=== PATIENT | female | born 1980 | race Caucasian/White ===

== ENCOUNTER 2024-09-20 16:58 | Emergency (ER) | payer OTHER ==
[2024-09-20] MEDS ORDERED: ALBUTEROL 2.5 MG/3 ML NEB SOL ONE ×2 (17:45→18:38)
[2024-09-20] MEDS ORDERED: IPRATROPIUM BROM 0.5MG/2.5ML ONE ×2 (17:46→18:39)
[2024-09-20] MEDS ORDERED: ONDANSETRON 4 MG/2 ML VIAL ONE (17:46)
[2024-09-20] MEDS ORDERED: dexAMETHasone 10 MG/ML VIAL ONE (17:46)
[2024-09-20] MEDS ORDERED: MORPHINE 2 MG/ML SYR ONE (17:46)
[2024-09-20 18:02] LABS: SARS-CoV-2 Antigen CONTROL BLUE LINE VIS/BG OK; SARS-CoV-2 Antigen Rapid Res Negative (Negative)
[2024-09-20 18:24] LABS: Absolute Basophils 0.1 K/uL (0-0.5); Absolute Eosinophils 0.2 K/uL (0-0.5); Absolute Lymphocytes (CBC) 2.4 K/uL (0.7-4.9); Absolute Monocytes 0.5 K/uL (0.1-1.3); Absolute Neutrophil 4.8 K/uL (1.8-8.0); Basophils % 1.8 % (0-1.3); Eosinophils % 1.9 % (0-4.4); Hematocrit 31.4 % (36.0-45.0); Hemoglobin 10.5 g/dL (12.0-15.0); Lymphocytes % 30.1 % (15.3-44.8); MCH 23.6 pg (27.0-35.0); MCHC 33.3 g/dL (32.0-36.0); MCV 70.8 fL (80-100); MPV 8.6 fL (7.6-11.3); Monocytes % 6.2 % (3.3-12.3); Nucleated Red Blood Cells % 0.3 % (0-0); Platelets 303 thou/uL (152-406); RBC Red Blood Cell Count 4.44 M/uL (3.86-4.86); Red Cell Distribution Width 19.8 % (12.1-15.2)
--- NOTE | 2024-09-20 18:29 | RAD REPORT ---
EXAMINATION: ONE VIEW CHEST XR CLINICAL INDICATION: Female, 44 years old.,COPD;Cough TECHNIQUE: Frontal chest projection is submitted. Examination is limited by patient positioning and t echnique. COMPARISON: 07/07/2024 FINDINGS: The lungs are grossly clear although suboptimal inspiratory effort somewhat limits evaluation. No pn eumothorax or sizable effusion. The heart is normal in size. Mediastinal contours are unremarkable. IMPRESSION: No acute intrathoracic abnormalities.
[2024-09-20 18:39] LABS: Anion Gap 10.5 mEq/L (5.0-15.0); Magnesium 2.1 mg/dL (1.6-2.4); Potassium 4.5 mEq/L (3.5-5.1); Troponin High Sensitivity 7.6 pg/mL (<58.9)
[2024-09-20] MEDS ORDERED: MORPHINE 4 MG/ML SYR ONE (18:49)
--- NOTE | 2024-09-20 18:50 | EDPHYS ---
Physician Documentation [facility] Name: F[facility] Leon Age: 44 yrs Sex: Female : 1980 Arrival Date: 09/20/2024 Time: 16:58 Bed 15 Private MD: ED Physician Keith Hernández HPI: 09/20 18:12 This 44 yrs old Female presents to ER via EMS with complaints of Fever, dr5 Breathing Difficulty. 18:12 Patient is a 44-year-old male female with history of asthma, COPD, CHF, seizures, PTSD, dr5 anxiety with multiple allergies coming in with shortness of breath that started last night. Patient went to her doctor today and was given breathing treatments with moderate improvement. Patient states that she has just recently been taken off of steroids.. 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 - Infectious Disease History:: Denies. - Social history:: Smoking status: Patient reports the use of cigarette tobacco products, smokes one-half pack cigarettes per day. ROS: 18:12 Constitutional: as per hpi dr5 Exam: 18:12 Constitutional: This is a well developed, grossly obese, unkempt patient who is awake, dr5 alert, and in no acute distress. Walking into the room smells of cigarettes. Head/Face: Normocephalic, atraumatic. Eyes: Pupils equal round and reactive to light, extra-ocular motions intact. Lids and lashes normal. Conjunctiva and sclera are non-icteric and not injected. Cornea within normal limits. Periorbital areas with no swelling, redness, or edema. ENT: Nares patent. No nasal discharge, no septal abnormalities noted. Tympanic membranes are normal and external auditory canals are clear. Oropharynx with no redness, swelling, or masses, exudates, or evidence of obstruction, uvula midline. Mucous membranes moist. Neck: Trachea midline, no thyromegaly or masses palpated, and no cervical lymphadenopathy. Supple, full range of motion without nuchal rigidity, or vertebral point tenderness. No Meningismus. Chest/axilla: Normal chest wall appearance and motion. Nontender with no deformity. No lesions are appreciated. Cardiovascular: Regular rate and rhythm with a normal S1 and S2. Normal PMI, no JVD. No pulse deficits. 18:12 Back: No spinal tenderness. No costovertebral tenderness. Full range of motion. Skin: Warm, dry with normal turgor. Normal color with no rashes, no lesions, and no evidence of cellulitis. MS/ Extremity: Pulses equal, no cyanosis. Neurovascular intact. Full, normal range of motion. Neuro: Awake and alert, GCS 15, oriented to person, place, time, and situation. Cranial nerves II-XII grossly intact. Motor strength 5/5 in all extremities. Sensory grossly intact. Cerebellar exam normal. Normal gait. 18:12 Respiratory: mild respiratory distress is noted, Respirations: normal, symetrical, no use of accessory muscles, no grunting, no evidence of nasal flaring, no appreciated paradoxical movements, Breath sounds: wheezing: expiratory that is mild, Respiratory rate: 20 100% RA, Vital Signs: 17:04 BP 116 / 59; Pulse 99; Resp 20; Temp 98.3; Pulse Ox 99% ; Weight 117.48 kg; Height 5 db ft. 4 in. ; 18:00 BP 118 / 63; Pulse 89; Resp 16; Pulse Ox 100% ; me1 18:55 BP 118 / 60; Pulse 92; Resp 16; Temp 98.2; Pulse Ox 98% ; me1 17:04 Body Mass Index 44.46 (117.48 kg, 162.56 cm) db MDM: 17:11 Medical Screening Exam initiated dr5 09/21 01:04 Differential diagnosis: viral Infection, bacterial infection, URI. Data reviewed: vital dr5 signs, nurses notes. I considered the following discharge prescriptions or medication management in the emergency department Medications were administered in the Emergency Department. See MAR. Care significantly affected by the following Social Determinants of Health: Poor access to healthcare and/or lack of insurance, Poor access to transportation, Problems related to employment. Counseling: I had a detailed discussion with the patient and/or guardian regarding the historical points, exam findings, and any diagnostic results supporting the discharge/admit diagnosis, the presence of at least one elevated blood pressure reading (>120/80) during this emergency department visit, the need for outpatient follow up, for definitive care, a family practitioner, a food critic, to return to the emergency department if symptoms worsen or persist or if there are any questions or concerns that arise at home. Medication response: albuterol nebulizer treatment(s) relieved the patient's symptoms. The patient is no longer wheezing. ED course: Patient is feeling much better after DuoNeb and steroids. Recommended patient follow-up with primary care doctor this week. Will give patient long-acting inhaled steroid. All questions answered. Patient reports she is feeling much better on discharge.. 09/20 17:16 Order name: Basic Metabolic Panel; Complete Time: 18:41 [facility] 09/20 17:16 Order name: CBC with Diff; Complete Time: 18:27 [facility] 09/20 17:16 Order name: Magnesium; Complete Time: 18:41 [facility] 09/20 17:16 Order name: NT PRO-BNP; Complete Time: 18:41 [facility] 09/20 17:16 Order name: Troponin HS; Complete Time: 18:41 [facility] 09/20 17:24 Order name: SARS RAPID; Complete Time: 18:04 [facility] 09/20 17:24 Order name: Influenza Screen (a \T\ B); Complete Time: 18:17 [facility] 09/20 17:16 Order name: XRAY Chest (1 view); Complete Time: 18:32 [facility] 09/20 17:16 Order name: Cardiac monitoring; Complete Time: 19:00 [facility] 09/20 17:16 Order name: IV Saline Lock; Complete Time: 18:17 [facility] 09/20 17:16 Order name: Labs collected and sent; Complete Time: 18:17 [facility] 09/20 17:16 Order name: O2 Per Protocol; Complete Time: 18:17 [facility] 09/20 17:16 Order name: O2 Sat Monitoring; Complete Time: 18:17 [facility] Administered Medications: 09/20 18:15 Drug: DuoNeb Nebulize (3:1) (2.5 mg - 0.5 mg) 6 ml Nebulizer once Route: Nebulizer; me1 18:32 Follow up: Response: No adverse reaction; Vomiting decreased me1 18:15 Drug: Dexamethasone IM 10 mg IM once Route: IM; Site: right deltoid; me1 18:32 Follow up: Response: No adverse reaction me1 18:15 Drug: Ondansetron IVP 4 mg IVP once; over 2 minutes Route: IVP; Site: right wrist; me1 18:32 Follow up: Response: No adverse reaction; Nausea is decreased me1 18:16 Drug: morphine IVP or IV 2 mg IVP once over 4 mins Route: IVP; Infused Over: 4 mins; me1 Site: right wrist; 18:32 Follow up: Response: No adverse reaction; Pain is decreased me1 18:48 Not Given (Patient Refused): DuoNeb Nebulize (3:1) (2.5 mg - 0.5 mg) 3 ml Nebulizer oncedr5 18:50 Drug: morphine IVP or IV 2 mg IVP once over 4 mins Route: IVP; Infused Over: 4 mins; me1 Site: right wrist; 18:54 Follow up: Response: No adverse reaction; Pain is decreased me1 Disposition: 09/21 07:04 Co-signature as Attending Physician, Keith Hernández MD I reviewed the patient's care rn provided by the Advanced Practice Provider and agree with the diagnosis and treatment plan. Disposition Summary: 09/20/24 18:50 Discharge Ordered Notes: Location: Home dr5 Condition: Stable dr5 Diagnosis - COPD/ Chronic obstructive pulmonary disease, unspecified dr5 Followup: dr5 - With: Emergency Department - When: As needed - Reason: Worsening of condition Followup: dr5 - With: Private Physician - When: 1 - 2 days - Reason: Recheck today's complaints, Continuance of care, Re-evaluation by your physician Discharge Instructions: - Discharge Summary Sheet dr5 - Chronic Obstructive Pulmonary Disease dr5 Forms: - Medication Reconciliation Form dr5 - Patient Portal Instructions dr5 - Leadership Thank You Letter dr5 Prescriptions: - Symbicort 80-4.5 mcg/actuation Inhalation HFA Aerosol Inhaler - inhale 2 inhalation INHALATION route 2 times per day; 1 application; Refills: dr5 0, Product Selection Permitted Signatures: Dispatcher [employer] EDKeith Clemons MD MD rn Benton, Danielle, RN RN db Eddleman, Michelle, RN RN me1 Andres Elizabeth, POLICE LIAISON OFFICER-C POLICE LIAISON OFFICER-Cdr5 Corrections: (The following items were deleted from the chart) 09/20 17:17 17:17 Chest Single View+RAD.RAD.BRZ ordered. EDMS EDMS
--- NOTE | 2024-09-20 18:50 | ER ---
Nurse's Notes [facility] Name: Fela De Leon Age: 44 yrs Sex: Female : 1980 Arrival Date: 09/20/2024 Time: 16:58 Bed 15 Private MD: Diagnosis: COPD/ Chronic obstructive pulmonary disease, unspecified Presentation: 09/20 17:04 Chief complaint: EMS states: EAR INFECTION, FEVER, DIFFICULTY BREATHING STATES TOOK db BREATHING TREATMENT X 5 TODAY. STATES STARTED LAST NIGHT. Coronavirus screen: Client denies travel out of the [place] in the last 14 days. At this time, the client does not indicate any symptoms associated with coronavirus-19. Ebola Screen: Patient negative for fever greater than or equal to 101.5 degrees Fahrenheit, and additional compatible Ebola Virus Disease symptoms Patient denies exposure to infectious person. Patient denies travel to an Ebola-affected area in the 21 days before illness onset. No symptoms or risks identified at this time. Initial Sepsis Screen: Does the patient meet any 2 criteria? No. Patient's initial sepsis screen is negative. Does the patient have a suspected source of infection? No. Patient's initial sepsis screen is negative. Risk Assessment: Do you want to hurt yourself or someone else? Patient reports no desire to harm self or others. Onset of symptoms was September 20, 2024. 17:04 Method Of Arrival: EMS: [facility] db 17:04 Acuity: RUPESH 3 db Triage Assessment: 17:13 General: Appears in no apparent distress. comfortable, Behavior is calm, cooperative. db Pain: Denies pain. Neuro: No deficits noted. Level of Consciousness is awake, alert, obeys commands, Oriented to person, place, time, situation. Respiratory: Reports cough that is Onset: The symptoms/episode began/occurred yesterday, the patient has mild shortness of breath. 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 - Infectious Disease History:: Denies. - Social history:: Smoking status: Patient reports the use of cigarette tobacco products, smokes one-half pack cigarettes per day. Screenin:14 [facility] ED Fall Risk Assessment (Adult) History of falling in the last 3 months, me1 including since admission No falls in past 3 months (0 pts) Confusion or Disorientation No (0 pts) Intoxicated or Sedated No (0 pts) Impaired Gait No (0 pts) Mobility Assist Device Used No (0 pt) Altered Elimination No (0 pt) Score/Fall Risk Level 0 - 2 = Low Risk Maintained a safe environment, Provided non-skid footwear, Hourly rounding (assess needs \T\ fall precautionary measures) done. Abuse screen: Denies threats or abuse. Nutritional screening: No deficits noted. Tuberculosis screening: No symptoms or risk factors identified. Assessment: 17:14 General: Appears uncomfortable, obese, well developed, Behavior is calm, cooperative, me1 appropriate for age, Reports EAR INFECTION, FEVER, DIFFICULTY BREATHING STATES TOOK BREATHING TREATMENT X 5 TODAY. STATES STARTED LAST NIGHT. Pain: Denies pain. Neuro: Level of Consciousness is awake, alert, obeys commands, Oriented to person, place, time, situation, Appropriate for age. Cardiovascular: Patient's skin is warm and dry. Cardiovascular: Rhythm is regular. Respiratory: Airway is patent Respiratory effort is even, labored, Respiratory pattern is symmetrical, tachypnea Breath sounds with wheezes bilaterally. GI: No signs and/or symptoms were reported involving the gastrointestinal system. : No signs and/or symptoms were reported regarding the genitourinary system. EENT: Reports pain in left ear. Derm: Skin is intact, is healthy with good turgor, Skin is pink, warm \T\ dry. Musculoskeletal: No signs and/or symptoms reported regarding the musculoskeletal system. Vital Signs: 17:04 BP 116 / 59; Pulse 99; Resp 20; Temp 98.3; Pulse Ox 99% ; Weight 117.48 kg; Height 5 db ft. 4 in. ; 18:00 BP 118 / 63; Pulse 89; Resp 16; Pulse Ox 100% ; me1 18:55 BP 118 / 60; Pulse 92; Resp 16; Temp 98.2; Pulse Ox 98% ; me1 17:04 Body Mass Index 44.46 (117.48 kg, 162.56 cm) db ED Course: 17:10 Patient arrived in ED. db 17:10 Eliza Ontiveros, RN is Primary Nurse. me1 17:11 Andres Elizabeth FNP-C [facility]. [facility] 17:11 Keith Hernández MD is Attending Physician. dr5 17:13 Triage completed. db 17:13 Arm band placed on. db 17:14 Patient has correct armband on for positive identification. Bed in low position. Call me1 light in reach. Side rails up X2. Provided Education on: POC. Verbalized understanding.. Client placed on continuous cardiac and pulse oximetry monitoring. NIBP monitoring applied. Pulse ox on. NIBP on. 17:14 No provider procedures requiring assistance completed. me1 17:20 Eliza Ontiveros, RN is Primary Nurse. me1 17:32 XRAY Chest (1 view) In Process Unspecified. EDMS 18:17 Basic Metabolic Panel Sent. me1 18:17 CBC with Diff Sent. me1 18:17 Magnesium Sent. me1 18:17 NT PRO-BNP Sent. me1 18:17 Troponin HS Sent. me1 18:18 Initial lab(s) drawn, by me, sent to lab. Inserted saline lock: 24 gauge in right me1 wrist, using aseptic technique. 18:58 IV discontinued, intact, bleeding controlled, No redness/swelling at site. Pressure me1 dressing applied. Administered Medications: 18:15 Drug: DuoNeb Nebulize (3:1) (2.5 mg - 0.5 mg) 6 ml Nebulizer once Route: Nebulizer; me1 18:32 Follow up: Response: No adverse reaction; Vomiting decreased me1 18:15 Drug: Dexamethasone IM 10 mg IM once Route: IM; Site: right deltoid; me1 18:32 Follow up: Response: No adverse reaction me1 18:15 Drug: Ondansetron IVP 4 mg IVP once; over 2 minutes Route: IVP; Site: right wrist; me1 18:32 Follow up: Response: No adverse reaction; Nausea is decreased me1 18:16 Drug: morphine IVP or IV 2 mg IVP once over 4 mins Route: IVP; Infused Over: 4 mins; me1 Site: right wrist; 18:32 Follow up: Response: No adverse reaction; Pain is decreased me1 18:48 Not Given (Patient Refused): DuoNeb Nebulize (3:1) (2.5 mg - 0.5 mg) 3 ml Nebulizer oncedr5 18:50 Drug: morphine IVP or IV 2 mg IVP once over 4 mins Route: IVP; Infused Over: 4 mins; me1 Site: right wrist; 18:54 Follow up: Response: No adverse reaction; Pain is decreased me1 Medication: 17:14 VIS not applicable for this client. me1 Outcome: 18:50 Discharge ordered by . dr5 18:58 Discharged to home ambulatory, me1 18:58 Condition: stable 18:58 Discharge instructions given to patient, Instructed on discharge instructions, follow up and referral plans. medication usage, Demonstrated understanding of instructions, follow-up care, medications, Prescriptions given X 1, 18:59 Patient left the ED. me1 Signatures: Dispatcher [employer] EDMerly Romero, RN RN db Eliza Ontiveros RN RN me1 Andres Elizabeth, SILVER SPRAY WORKER-C SILVER SPRAY WORKER-Cdr5 Corrections: (The following items were deleted from the chart) 17:14 17:04 Chief complaint: EMS states: EAR INFECTION, FEVER, DIFFICULTY BREATHING STATES me1 TOOK BREATHING TREATMENT X 5 TODAY. STATES STARTED LAST NIGHT db
[2024-09-21 03:55] VITALS: BP 118/60; TEMP 98.2; O2SAT 98
== END 2024-09-20 18:59 | disposition home or self-care (01) ==
LOC: ER 16:58
DX: J44.9 Chronic obstructive pulmonary disease, unspecified (principal); I50.9 Heart failure, unspecified; F17.210 Nicotine dependence, cigarettes, uncomplicated; Z11.52 Encounter for screening for COVID-19
CPT/HCPCS: 85025; 80048; 36415; 83735; 84484; 83880; 87804 ×2; 71045; 87811; J7613 ×2; J7644 ×2; J1100; J2270; J2405

== ENCOUNTER 2024-09-28 19:18 | Emergency (ER) | payer OTHER ==
--- NOTE | 2024-09-28 20:08 | RAD REPORT ---
EXAMINATION: XR Foot Left 3 View CLINICAL INDICATION: Female, 44 years old. [facility] MAIN PAIN Bed: TECHNIQUE: 3 view radiographs of the left foot were obtained. COMPARISON: No prior exam. FINDINGS: No evidence of fracture or dislocation. Normal alignment. No evidence of arthropathy or oth er focal bone lesion. Soft tissues are unremarkable. Small calcaneal spur. No significant degenerative changes. IMPRESSION: No acute or significant abnormalities.
--- NOTE | 2024-09-28 20:08 | RAD REPORT ---
EXAMINATION: XR Tib Fib Left CLINICAL INDICATION: Female, 44 years old. PAIN TECHNIQUE: 2 view radiograph of the left tibia and fibula were obtained. COMPARISON: No prior exam. FINDINGS: No evidence of fracture or dislocation. Normal alignment. Mild suprapatellar knee joint eff usion. Enthesopathy at the quadriceps tendon attachment. No evidence of arthropathy or other focal bone lesion. Soft tissues are unremarkable. IMPRESSION: No acute osseous abnormalities. Mild knee effusion.
[2024-09-28] MEDS ORDERED: IBUPROFEN 400 MG TAB ONE (20:46)
[2024-09-28] MEDS ORDERED: HYDROCODONE/APAP 7.5/325 MG TAB ONE (20:47)
--- NOTE | 2024-09-28 20:51 | EDPHYS ---
Physician Documentation [facility] Name: Fela De Leon Age: 44 yrs Sex: Female : 1980 Arrival Date: 09/28/2024 Time: 19:18 Bed DX3 Private MD: ED Physician Mu Geller HPI: 09/28 19:35 This 44 yrs old Female presents to ER via EMS with complaints of Fall Injury. cp 19:35 Details of fall: The patient fell from an upright position, while standing. Onset: The cp symptoms/episode began/occurred today. Associated injuries: The patient sustained left ankle. 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 - Infectious Disease History:: Denies. - Immunization history: Last tetanus immunization: - up to date. - Social history:: Smoking status: Patient reports the use of cigarette tobacco products, smokes one-half pack cigarettes per day. ROS: 19:45 MS/extremity: Positive for pain, swelling, tenderness, of the left ankle, cp 19:45 Constitutional: Negative for chills, fever, cp 19:45 Neck: Negative for pain with movement, pain at rest, 19:45 Back: Negative for pain at rest, pain with movement, 19:45 Neuro: Negative for altered mental status, headache, weakness, 19:45 All other systems are negative, Exam: 19:50 Constitutional: The patient appears in no acute distress, alert, awake, non-toxic, well cp developed, well nourished, obese, uncomfortable, 19:50 Head/Face: Normocephalic, atraumatic. cp 19:50 Neck: ROM/movement: is normal, is supple, without pain, no range of motions limitations, 19:50 Chest/axilla: Inspection: normal, 19:50 Cardiovascular: Rate: normal, 19:50 Respiratory: the patient does not display signs of respiratory distress, Respirations: normal, no use of accessory muscles, no retractions, labored breathing, is not present, Breath sounds: are clear throughout, no decreased breath sounds, no stridor, no wheezing, 19:50 Abdomen/GI: Inspection: obese 19:50 Back: pain, is absent, ROM is normal, 19:50 Musculoskeletal/extremity: Extremities: noted in the left ankle: pain tenderness lateral side of left ankle, swelling, pain with passive ROM, Vital Signs: 19:28 BP 157 / 122; Pulse 64; Resp 17; Temp 98.2; Pulse Ox 98% ; Weight 117.03 kg; Height 5 me1 ft. 4 in. ; Pain 7/10; 19:28 Body Mass Index 44.29 (117.03 kg, 162.56 cm) me1 19:28 Pain Scale: Adult me1 [place] Coma Score: 21:10 Eye Response: spontaneous(4). Motor Response: obeys commands(6). Verbal Response: cp4 oriented(5). Total: 15. Trauma Score (Adult): 21:10 Eye Response: spontaneous(1); Verbal Response: oriented(1); Motor Response: obeys cp4 commands(2); Systolic BP: > 89 mm Hg(4); Respiratory Rate: 10 to 29 per min(4); [place] Score: 15; Trauma Score: 12 MDM: 19:37 Medical Screening Exam initiated cp 20:00 Differential diagnosis: fracture, sprain, dislocation, Achilles tendon rupture. 20:50 Data reviewed: vital signs, nurses notes, radiologic studies, plain films, and as a cp result, I will discharge patient. 20:51 I considered the following discharge prescriptions or medication management in the emergency department Medications were administered in the Emergency Department. See MAR. 20:51 Counseling: I had a detailed discussion with the patient and/or guardian regarding the historical points, exam findings, and any diagnostic results supporting the discharge/admit diagnosis, radiology results, to return to the emergency department if symptoms worsen or persist or if there are any questions or concerns that arise at home. Response to treatment: the patient's symptoms have mildly improved after treatment, and as a result, I will discharge patient. 09/28 19:30 Order name: XRAY Foot LEFT 3 View; Complete Time: 20:52 cp 09/28 20:52 Interpretation: Reviewed report. cp 09/28 19:30 Order name: XRAY Tib Fib LEFT; Complete Time: 20:52 cp 09/28 20:52 Interpretation: Report reviewed. cp 09/28 20:41 Order name: Crutches; Complete Time: 20:55 cp 09/28 20:41 Order name: Walking boot; Complete Time: 20:55 cp Administered Medications: 20:55 Drug: Ibuprofen PO 800 mg PO once Route: PO; cp4 21:14 Follow up: Response: No adverse reaction cp4 20:55 Drug: Hydrocodone-Acetaminophen PO (7.5 mg-325 mg) 1 tabs PO once; RASS on ADMIN: cp4 Combtv4, Very Agttd3, Agttd2, Rstlss1, AlertClm0, Drwsy-1, Lt Sdtn-2, Mod Sdtn-3, Dp Sdtn-4, UnArsble-5 Route: PO; 21:14 Follow up: Response: No adverse reaction cp4 Disposition: 20:57 I was immediately available on-site in the Emergency Department for consultation in the ms3 care of the patient. 09/29 20:21 Chart complete. cp Disposition Summary: 09/28/24 20:51 Discharge Ordered Notes: Location: Home cp Problem: new cp Symptoms: have improved cp Condition: Stable cp Diagnosis - Sprain of ankle - left cp Followup: cp - With: Jamir Medina MD - When: 1 week - Reason: pain continues Discharge Instructions: - Discharge Summary Sheet cp - Ankle Sprain cp - RICE Therapy for Routine Care of Injuries cp Forms: - Medication Reconciliation Form cp - Antibiotic Education cp - Prescription Opioid Use cp - Patient Portal Instructions cp - Leadership Thank You Letter cp Prescriptions: - Anaprox DS 550 mg Oral Tablet - take 1 tablet ORAL route every 12 hours As needed; 20 tablet; Refills: 0, cp Product Selection Permitted Signatures: Dispatcher [employer] EDWV Leonides Butler PA PA cp Mu Geller DO DO ms3 Eliza Ontiveros, RN RN me1 Leslie Read cp4 Corrections: (The following items were deleted from the chart) 20:01 20:00 MS/extremity: Positive for pain, swelling, tenderness, of the left ankle, cp cp
--- NOTE | 2024-09-28 20:51 | ER ---
Nurse's Notes [facility] Name: Fela De Leon Age: 44 yrs Sex: Female : 1980 Arrival Date: 09/28/2024 Time: 19:18 Bed DX3 Private MD: Diagnosis: Sprain of ankle-left Presentation: 09/28 19:28 Chief complaint: EMS states: s/p fall from recliner with c/o left ankle and foot pain. me1 States it feels numb and tingling. Refused toradol for EMS. Coronavirus screen: Vaccine status: Patient reports receiving the 2nd dose of the covid vaccine. Ebola Screen: No symptoms or risks identified at this time. Initial Sepsis Screen: Does the patient meet any 2 criteria? No. Patient's initial sepsis screen is negative. Does the patient have a suspected source of infection? No. Patient's initial sepsis screen is negative. Risk Assessment: Do you want to hurt yourself or someone else? Patient reports no desire to harm self or others. Onset of symptoms was September 28, 2024 at 18:30. 19:28 Method Of Arrival: EMS: [facility] me1 19:28 Acuity: RUPESH 4 me1 21:11 Care prior to arrival: None. Mechanism of Injury: Fall from standing position. Trauma cp4 event details: Injury occurred in the [facility]. 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:31 LMP N/A - Hysterectomy, Not me1 Trauma Activation: Not Applicable Physician: ED Physician; Name: ; Notified At: ; Arrived At: Physician: General Surgeon; Name: ; Notified At: ; Arrived At: Physician: Radiology; Name: ; Notified At: ; Arrived At: Physician: Respiratory; Name: ; Notified At: ; Arrived At: Physician: Lab; Name: ; Notified At: ; Arrived At: Historical: - Allergies: 19:31 Brand name Carbatrol; me1 19:31 Bromfed DM; me1 19:31 BuSpar; me1 19:31 Cipro; me1 19:31 Depakote; me1 19:31 Keppra; me1 19:31 Ritalin; me1 19:31 Tamiflu; me1 19:31 Tegretol; me1 19:31 Tessalon Perles; me1 19:31 Wellbutrin; me1 19:31 Zoloft; me1 - PMHx: 19:31 Anxiety; Asthma; CHF; COPD; PTSD; Seizures; me1 - PSHx: 19:31 hysterectomy; Right knee x2; me1 - Immunization history:: Adult Immunizations up to date. - Infectious Disease History:: Denies. - Immunization history: Last tetanus immunization: - up to date. - Social history:: Smoking status: Patient reports the use of cigarette tobacco products, smokes one-half pack cigarettes per day. Screenin:06 [facility] ED Fall Risk Assessment (Adult) History of falling in the last 3 months, cp4 including since admission Yes- single mechanical fall (1 pt) Confusion or Disorientation No (0 pts) Intoxicated or Sedated No (0 pts) Impaired Gait No (0 pts) Mobility Assist Device Used No (0 pt) Altered Elimination No (0 pt) Score/Fall Risk Level 0 - 2 = Low Risk Oriented to surroundings, Maintained a safe environment, Assessed \T\ reinforced patient's understanding of fall precautions, Hourly rounding (assess needs \T\ fall precautionary measures) done. Abuse screen: Denies threats or abuse. Denies injuries from another. Nutritional screening: No deficits noted. Tuberculosis screening: No symptoms or risk factors identified. Primary Survey: 21:10 NO uncontrolled hemorrhage observed. A: The client is awake and alert. The airway is cp4 patent. Breathing/Chest: Spontaneous respiratory effort, equal unlabored respirations, breath sounds clear bilaterally, regular pattern, symmetrical chest rise and fall. Circulation: No external hemorrhage present. Regular and strong central pulse, skin warm/dry/normal color. Disability Pupils are equal, round, reactive to light and accommodation. Client is alert. Exposure/Environment: A warming method has been applied: A warm blanket has been provided to the patient. Reassessment Breathing: Spontaneous respiratory effort, equal unlabored respirations, breath sounds clear bilaterally, regular pattern with symmetrical chest rise and fall. Circulation: No external hemorrhage noted. Regular and strong central pulse, skin warm/dry/normal color. Disability: Pupils Pupils are equal, round, reactive to light and accomodation. Alert. Assessment: 21:06 General: Appears in no apparent distress. uncomfortable, Behavior is calm, cooperative, cp4 appropriate for age. Pain: Complains of pain in left leg Pain currently is 8 out of 10 on a pain scale. Neuro: Level of Consciousness is awake, alert, obeys commands, Oriented to person, place, time, situation. Cardiovascular: No deficits noted. Cardiovascular: Patient's skin is warm and dry. Respiratory: Airway is patent Respiratory effort is even, unlabored. GI: No deficits noted. : No deficits noted. EENT: No deficits noted. Derm: No deficits noted. Musculoskeletal: Reports pain in left leg. Vital Signs: 19:28 BP 157 / 122; Pulse 64; Resp 17; Temp 98.2; Pulse Ox 98% ; Weight 117.03 kg; Height 5 me1 ft. 4 in. ; Pain 7/10; 19:28 Body Mass Index 44.29 (117.03 kg, 162.56 cm) me1 19:28 Pain Scale: Adult me1 [place] Coma Score: 21:10 Eye Response: spontaneous(4). Motor Response: obeys commands(6). Verbal Response: cp4 oriented(5). Total: 15. Trauma Score (Adult): 21:10 Eye Response: spontaneous(1); Verbal Response: oriented(1); Motor Response: obeys cp4 commands(2); Systolic BP: > 89 mm Hg(4); Respiratory Rate: 10 to 29 per min(4); [place] Score: 15; Trauma Score: 12 ED Course: 19:26 Patient arrived in ED. im 19:29 Leonides Butler PA is PHCP. cp 19:29 Mu Geller DO is Attending Physician. cp 19:30 Triage completed. me1 19:31 Arm band placed on Patient placed in waiting room. me1 19:52 XRAY Foot LEFT 3 View In Process Unspecified. EDMS 19:52 XRAY Tib Fib LEFT In Process Unspecified. EDMS 20:44 Elham Lorenz, LARISA is Primary Nurse. br2 20:49 Jamir Medina MD is Referral Physician. cp 21:06 Patient has correct armband on for positive identification. Provided Education on: leg cp4 pain. 21:06 No provider procedures requiring assistance completed. Patient did not have IV access cp4 during this emergency room visit. 21:10 Patient maintains SpO2 saturation greater than 95% on room air. cp4 21:12 Thermoregulation: warm blanket given to patient. cp4 Administered Medications: 20:55 Drug: Ibuprofen PO 800 mg PO once Route: PO; cp4 21:14 Follow up: Response: No adverse reaction cp4 20:55 Drug: Hydrocodone-Acetaminophen PO (7.5 mg-325 mg) 1 tabs PO once; RASS on ADMIN: cp4 Combtv4, Very Agttd3, Agttd2, Rstlss1, AlertClm0, Drwsy-1, Lt Sdtn-2, Mod Sdtn-3, Dp Sdtn-4, UnArsble-5 Route: PO; 21:14 Follow up: Response: No adverse reaction cp4 Medication: 21:06 VIS not applicable for this client. cp4 Intake: 21:10 PO: 0ml; Total: 0ml. cp4 Output: 21:10 Urine: 0ml; Total: 0ml. cp4 Outcome: 20:51 Discharge ordered by MD. cp 21:06 Discharged to home via wheelchair, cp4 21:06 Condition: stable 21:06 Discharge instructions given to patient, Instructed on discharge instructions, follow up and referral plans. medication usage, Demonstrated understanding of instructions, follow-up care, medications, Prescriptions given X 1, 21:11 Patient's length of stay was not longer than 2 hours. cp4 21:12 Patient left the ED. cp4 Signatures: Dispatcher [employer] EDMS Leonides Butler PA PA cp Mendoza, Itzel im Eddleman, Michelle, RN RN me1 Leslie Read cp4 Elham Lorenz RN RN br2
[2024-09-28 21:22] VITALS: BP 157/122; TEMP 98.2; O2SAT 98
== END 2024-09-28 21:12 | disposition home or self-care (01) ==
LOC: ER 19:18
DX: S93.402A Sprain of unspecified ligament of left ankle, initial encounter (principal); W18.30XA Fall on same level, unspecified, initial encounter
CPT/HCPCS: 99283

== ENCOUNTER 2024-11-16 17:31 | Emergency (ER) | payer MEDICAID ==
[2024-11-16 19:21] LABS: Absolute Basophils 0.1 K/uL (0-0.5); Absolute Eosinophils 0.2 K/uL (0-0.5); Absolute Lymphocytes (CBC) 1.9 K/uL (0.7-4.9); Absolute Monocytes 0.4 K/uL (0.1-1.3); Absolute Neutrophil 3.3 K/uL (1.8-8.0); Basophils % 1.5 % (0-1.3); Eosinophils % 2.6 % (0-4.4); Hematocrit 37.3 % (36.0-45.0); Hemoglobin 11.9 g/dL (12.0-15.0); Lymphocytes % 32.6 % (15.3-44.8); MCH 22.8 pg (27.0-35.0); MCHC 31.9 g/dL (32.0-36.0); MCV 71.7 fL (80-100); MPV 8.6 fL (7.6-11.3); Monocytes % 7.1 % (3.3-12.3); Neutrophils % 56.2 % (41.7-73.7); Nucleated Red Blood Cells % 0.1 % (0-0); Platelets 302 thou/uL (152-406); Red Cell Distribution Width 20.2 % (12.1-15.2)
[2024-11-16 19:31] LABS: PT Prothrombin Time 11.8 SECONDS (10-13.0); PTT, Activated Partial Thromb 33.2 SECONDS (27.2-37.4); Protime INR 1.04
[2024-11-16] MEDS ORDERED: KETOROLAC 30 MG/ML INJ ONE (19:34)
[2024-11-16] MEDS ORDERED: NA CHLORIDE 0.9% 1,000 ML ONE (19:34)
[2024-11-16 19:49] LABS: ALT/SGPT 22 U/L (13-56); AST/SGOT < 10 U/L (15-37); Albumin 3.4 g/dL (3.4-5.0); Albumin/Globulin Ratio 0.9 (1.1-1.8); Alkaline Phosphatase 107 U/L (45-117); Anion Gap 10.2 mEq/L (5.0-15.0); BUN Blood Urea Nitrogen 8 mg/dL (7-18); Bicarbonate 26 mEq/L (21-32); Bilirubin Direct < 0.2 mg/dL (0-0.2); Bilirubin Total 0.2 mg/dL (0.2-1.0); Glomerular Filtration Rate 89 ml/min (=/>90); Glucose Level 110 mg/dL (74-106); Potassium 4.2 mEq/L (3.5-5.1); Protein, Total 7.4 g/dL (6.4-8.2); Sodium Level 138 mEq/L (136-145)
[2024-11-16] MEDS ORDERED: FENTANYL CITR 100 MCG/2 ML ONE (20:22)
[2024-11-16 20:57] LABS: Blood Morphology Comment NOT SEEN (NOT SEEN); Platelet Estimate ADEQ; White Blood Cell Scan OK (OK)
[2024-11-16 21:36] LABS: Specific Gravity 1.015 (1.005-1.030)
[2024-11-16 21:37] LABS: Specific Gravity 1.015 (1.005-1.030); Sqamous Epithelial <5 /HPF (None Seen); Urine Bacteria <20 /HPF (<20); Urine Bilirubin NEGATIVE (Negative); Urine Blood Negative (Negative); Urine Clarity Turbid (Clear); Urine Color Light-Yellow (Yellow); Urine Culture Reflex Order NOT NEEDED; Urine Glucose NEGATIVE (Negative); Urine Ketones NEGATIVE (Negative); Urine Microscopic Reflex YN ORDER UMIC; Urine Mucus Slight /HPF (None Seen); Urine Nitrite NEGATIVE (Negative); Urine Protein NEGATIVE (Negative); Urine RBC <5 /HPF (None Seen); Urine Urobilinogen Normal (Normal); Urine WBC <5 /HPF (<5); Urine WBC Clump Rare /HPF (None Seen); Urine Yeast (Budding) Trace /HPF (None Seen); Urine pH 6.5 (5.0-7.0)
[2024-11-16] MEDS ORDERED: MORPHINE 4 MG/ML SYR ONE (21:39)
[2024-11-16] MEDS ORDERED: CLINDAMYCIN 900MG/D5W 900 MG/50 ML IVPB IV ONE (21:40)
[2024-11-16 21:44] LABS: Barbiturates NEGATIVE (NEGATIVE); Benzodiazepines NEGATIVE (NEGATIVE); Cocaine NEGATIVE (NEGATIVE); METHAMPHETAM NEGATIVE (NEGATIVE); Methadone NEGATIVE (NEGATIVE); Opiates NEGATIVE (NEGATIVE); Phencyclidine NEGATIVE (NEGATIVE); THC Cannibis NEGATIVE (NEGATIVE)
--- NOTE | 2024-11-16 22:18 | RAD REPORT ---
EXAM: CT face with contrast HISTORY: Facial pain and swelling COMPARISON: None TECHNIQUE: Multiple contiguous axial images were obtained and a CT of the face with 50 cc Isovue-300. Sagittal and coronal reformats were performed. Automated exposure control, adjustment of the mA and/or kV according to patient size, and/or iterative reconstruction. Unless otherwise specified, in cidental findings do not require dedicated imaging follow-up. FINDINGS: Increased density is present within the superficial tissues adjacent to the nose. A fluid-filled absc ess is seen. The globes are normal size and density. Opacification left maxillary sinus with expansion of the left ostiomeatal complex IMPRESSION: Increased density superficial tissues adjacent to the nose may indicate a cellulitis. Opacification left maxillary sinus with expansion of the left ostiomeatal complex. This may represent sinusitis, or an antrochoanal polyp
--- NOTE | 2024-11-16 22:19 | RAD REPORT ---
EXAM: CT brain without contrast HISTORY: Seizure COMPARISON: None TECHNIQUE: Multiple contiguous axial images were obtained and a CT of the brain without contrast.. Sagittal and coronal reconstruction performed. Automated exposure control, adjustment of the mA and/or kV according to patient size, and/or iterative reconstruction. Unless otherwise specified, incidental f indings do not require dedicated imaging follow-up FINDINGS: Vague area of increased density is present along the left frontal convex Ventricles are normal caliber No significant hypodensity within the brain Opacification left maxillary sinus described on CT face same date. IMPRESSION: Vague area of increased density along the left frontal convexity probably represents a combination of artifact and volume averaging of normal structures. Pathology is probably less likely. Repeat CT is recommended for further evaluation.
--- NOTE | 2024-11-16 23:18 | RAD REPORT ---
EXAM: ead Brain Wo Cont 11/16/2024 10:36 PM CDT CLINICAL INDICATION: repeat CT COMPARISON: Head CT November 16, 2024 TECHNIQUE: Axial CT images of the head are obtained from the skull base to the vertex without IV cont rast. Axial, sagittal, and coronal images are interpreted. This exam was performed according to our departmental dose-optimization protocol, which includes auto mated exposure control, adjustment of the mA and/or kV according to patient size and/or use of iterative reconstruction technique. DLP: 1766.33 mGy-cm. FINDINGS: Study is significantly degraded by motion artifact. Patient was scanned twice CORTEX: There is no evidence of cerebral edema, mass, mass effect, hemorrhage, or recent cortical inf arct. The astorga-white distinction is maintained. WHITE MATTER: No significant white matter disease or atrophy. BASAL GANGLIA: Basal ganglia are intact. VENTRICLES: The ventricles and subarachnoid spaces are normal for patient age. Peripheral hyperdensit y over the frontal poles compatible with edema hardening artifact. No acute extra-axial process identified. POSTERIOR FOSSA: The brain stem and cerebellum are within normal limits. No mass, mass effect, hemo rrhage or recent cortical infarct is present. The foramen magnum is normal. SKULL: No acute skull abnormality is seen. No lytic or sclerotic lesions. ORBITS, VISUALIZED PARANASAL SINUSES AND MASTOIDS: The left maxillary sinus is opacified. Volume loss . Probable chronic inflammatory change. Subtotal opacification left mastoid air cells. No orbital pathology. IMPRESSION: 1. Study is significantly degraded by motion artifact. 2. Within the limitations imposed by motion artifact, no acute intracranial process identified. 3. Chronic inflammatory changes left maxillary sinus. 4. Subtotal opacification left mastoid air cells Standardized Report: Standardized Report: [id number]. Electronically signed by: Van Mclain MD 11/16/2024 11:13 PM CDT Due to temporary technical issues with the [employer] reporting system, reports are being janet d by the in-house radiologist without review as a courtesy to ensure prompt reporting the interpreting radiologist is fully responsible for the content of the report. Transcribed Date/Time: 11/16/2024 11:17 PM
[2024-11-16] MEDS ORDERED: HYDROCODONE/APAP 7.5/325 MG TAB ONE (23:30)
--- NOTE | 2024-11-16 23:36 | ER ---
Nurse's Notes [facility] Name: Fela De Leon Age: 44 yrs Sex: Female : 1980 Arrival Date: 11/16/2024 Time: 17:31 Bed 17 Private MD: Diagnosis: Cellulitis of face;Local infection of the skin and subcutaneous tissue, unspecified-left breast;Other seizures Presentation: 11/16 17:32 Chief complaint: EMS states: they were toned out for an abscess to the right nare that kc6 started on Wednesday and began hurting on Wednesday. pt states, "I've had 3 seizures because of it and I can't see well out of my right eye.". Coronavirus screen: At this time, the client does not indicate any symptoms associated with coronavirus-19. Ebola Screen: No symptoms or risks identified at this time. Initial Sepsis Screen: Does the patient meet any 2 criteria? No. Patient's initial sepsis screen is negative. Does the patient have a suspected source of infection? No. Patient's initial sepsis screen is negative. Risk Assessment: Do you want to hurt yourself or someone else? Patient reports no desire to harm self or others. Onset of symptoms was November 16, 2024. 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 - Infectious Disease History:: Denies. - Social history:: Smoking status: Patient reports the use of cigarette tobacco products, smokes one-half pack cigarettes per day. Screenin:36 [facility] ED Fall Risk Assessment (Adult) History of falling in the last 3 months, kc6 including since admission No falls in past 3 months (0 pts) Confusion or Disorientation No (0 pts) Intoxicated or Sedated No (0 pts) Impaired Gait No (0 pts) Mobility Assist Device Used No (0 pt) Altered Elimination No (0 pt) Score/Fall Risk Level 0 - 2 = Low Risk Oriented to surroundings, Maintained a safe environment, Educated pt \\T\\ family on fall prevention, incl call for assistance when getting out of bed. Abuse screen: Denies threats or abuse. Denies injuries from another. Nutritional screening: No deficits noted. Tuberculosis screening: No symptoms or risk factors identified. Assessment: 17:37 General: Appears in no apparent distress. comfortable, obese, unkempt, well developed, kc6 Behavior is calm, cooperative, appropriate for age, drowsy. Pain: Complains of pain in nose Pain currently is 10 out of 10 on a pain scale. Pain began 2-3 days ago. Is continuous. Neuro: Level of Consciousness is awake, alert, obeys commands, Oriented to person, place, time, situation, Appropriate for age Reports blurred vision in right eye Seizure activity reported prior to arrival. pt states her last seizure was 1.5hrs ago. Cardiovascular: Capillary refill < 3 seconds. Respiratory: Airway is patent Trachea midline Respiratory effort is even, unlabored, Respiratory pattern is regular, symmetrical. GI: No signs and/or symptoms were reported involving the gastrointestinal system. : No signs and/or symptoms were reported regarding the genitourinary system. EENT: Nares are clear bilaterally. Derm: Skin is healthy with good turgor, has lesions on JOVANNA nares Skin is pink, warm \\T\\ dry. Abscess located on left breast is nickel sized, has purulent drainage, is hot to touch, is red, is raised. Musculoskeletal: No signs and/or symptoms reported regarding the musculoskeletal system. Circulation, motion, and sensation intact. Range of motion: intact in all extremities. 18:37 Reassessment: Patient appears in no apparent distress at this time. No changes from kc6 previously documented assessment. Patient and/or family updated on plan of care and expected duration. Pain level reassessed. Patient is alert, oriented x 3, equal unlabored respirations, skin warm/dry/pink. 19:05 Reassessment: ASSUMED CARE OF PT. PT SLEEPING IN BED. EASILY AROUSED TO VERBAL STIMULI. jj7 VS STABLE. 19:45 Reassessment: PT UP TO USE THE RESTROOM. UNSTEADY ON HER FEET. STATES SHE GOT DIZZY IN jj7 THE BATHROOM. PT ASSISTED BACK INTO BED. PT REQUEST STRONGER PAIN MEDS. SMITH BUTLER INFORMED. STATES NOT AT THE MOMENT JUST GIVE HER ORDERED TORADOL. PT STATES SHE WOULD LIKE THE TORADOL. 20:30 Reassessment: PT IS YELLING AND STATING SHE WANTS MORE PAIN MED AND ICE. PT IS ASLEEP j7 LESS THEN 1 MINUTE LATER SNORING. 21:30 Reassessment: PT REQUESTING ICE AND PAIN MEDS. SMITH BUTLER INFORMED. juan ramonjKalyani 22:50 Reassessment: PT IS YELLING AND SCREAMING SHE WANTS TO SEE THE DOCTOR FACE TO FACE. PT catherine WALKS TO NURSES STATION STATES SHE WANTS TO SEE THE DOCTOR IN PRIVATE RIGHT NOW. SMITH BUTLER INFORMED. 23:15 Reassessment: SMITH BUTLER AT BEDSIDE SPEAKING TO THE PT WITH CHARGE NURSE AT BEDSIDE. SMITH alexander PAGE STATES HE WILL ORDER HER SOMETHING FOR PAIN. 23:25 Reassessment: PT YELLING TO KEEP THE DOOR OPEN AND GET HER PAIN MEDS. PT INFORMED BY catherine THIS NURSE I WILL GET PAIN MEDS SHORTLY I HAVE OTHER PT'S I HAVE TO ATTEND TO AT THE MOMENT. PT YELLS IT'S GOING TO TAKE AN HR TO GET HER MEDS. THE DOCTOR TOLD HER SHE CAN HAVE IT NOW AND I AM TAKING TO LONG. THIS NURSE INFORMED PT THE DOC JUST PUT IN ORDERS FOR MEDS AND SHE HAS BEEN GETTING MEDS AND UPDATES VERY OFTEN AND SHE NEEDS TO STOP YELLING AND BEING RUDE. PT STATES "DO YOU WANT ME TO PUT IN A BAD REVIEW FOR YOU?". Vital Signs: 17:32 BP 140 / 69; Pulse 84; Resp 19 S; Temp 98(O); Weight 122.02 kg (R); Height 5 ft. 4 in. kc6 (R); Pain 10/10; 19:01 BP 107 / 55; Pulse 81; Resp 19 S; Pulse Ox 97% on R/A; kc6 19:07 BP 101 / 50; Pulse 98; Resp 16; Pulse Ox 99% ; jj7 20:00 BP 103 / 57; Pulse 84; Resp 17; Pulse Ox 99% ; jj7 21:00 BP 147 / 69; Pulse 90; Resp 16; Pulse Ox 98% ; jj7 22:00 BP 156 / 87; Pulse 88; Resp 16; Pulse Ox 100% ; jj7 23:10 BP 141 / 76; Pulse 83; Resp 16; Pulse Ox 97% ; jj7 17:32 Body Mass Index 46.17 (122.02 kg, 162.56 cm) kc6 17:32 Pain Scale: Adult [facility] ED Course: 17:32 Patient arrived in ED. kc6 17:32 Leonides Butler PA is PHCP. cp 17:32 Guille Smith MD is Attending Physician. cp 17:34 Triage completed. kc6 17:34 Arm band placed on. kc6 17:36 Britt Hawkins, RN is Primary Nurse. kc6 17:36 Patient has correct armband on for positive identification. Bed in low position. Call kc6 light in reach. Side rails up X2. Pulse ox on. NIBP on. Door closed. Noise minimized. Lights dimmed. Pillow given. Verbal reassurance given. 17:36 Patient maintains SpO2 saturation greater than 95% on room air. kc6 18:53 Missed attempt(s): 20 gauge in right forearm. Missed attempt(s): 22 gauge in left hand. kc6 19:05 Provided Education on: USE OF CALL KHOURY. jj7 19:08 Report given to CATALINA, RN. kc6 19:20 Inserted saline lock: 22 gauge in left wrist, using aseptic technique. Blood collected. af3 Flushed with 10 mL NS. 21:09 CT Head Brain wo Cont In Process Unspecified. EDMS 21:09 CT Facial Bones W/ Con \\T\\ Mpr In Process Unspecified. EDMS 21:50 Diet: Patient given ice chips. jj7 22:53 CT Head Brain wo Cont In Process Unspecified. EDMS 23:40 No provider procedures requiring assistance completed. IV discontinued, intact, jj7 bleeding controlled, No redness/swelling at site. Pressure dressing applied. Administered Medications: 19:51 Drug: NS 0.9% IV 1000 ml IV at 1000 ml once; to be given as a bolus over 60 minutes jj7 Route: IV; Rate: 1000 ml; Site: left hand; 21:57 Follow up: IV Status: Completed infusion jj7 19:51 Drug: Ketorolac IVP 15 mg IVP once Route: IVP; Site: left hand; jj7 20:38 Follow up: Response: Pain is unchanged, physician notified jj7 20:38 Drug: fentaNYL (PF) IVP 25 mcg IVP once Route: IVP; Site: left hand; jj7 21:00 Follow up: Response: Pain is decreased jj7 21:55 Drug: Clindamycin IVPB 900 mg IVPB once over 30 mins; (mix in 50 mL) Route: IVPB; jj7 Infused Over: 30 mins; Site: left hand; 22:30 Follow up: IV Status: Completed infusion jj7 21:55 Drug: morphine IVP or IV 4 mg IVP once over 4 mins Route: IVP; Infused Over: 4 mins; jj7 Site: left hand; 22:30 Follow up: Response: Marked relief of symptoms; Pain is decreased jj7 23:28 Not Given (Other Intervention Used): morphineor iv 4 mg IVP once over 4 mins vc1 23:34 Drug: Hydrocodone-Acetaminophen PO (7.5 mg-325 mg) 1 tabs PO once Route: PO; vc1 23:43 Follow up: Response: No adverse reaction jj7 Medication: 23:43 VIS not applicable for this client. jj7 Outcome: 23:35 Discharge ordered by MD. morales 23:40 Discharged to home ambulatory, jj7 23:40 Condition: improved 23:40 Discharge instructions given to patient, Instructed on discharge instructions, follow up and referral plans. medication usage, Demonstrated understanding of instructions, follow-up care, medications, Prescriptions given X 4, 23:45 Patient left the ED. jj7 Signatures: Dispatcher [employer] EDMS Leonides Butler PA PA cp Calcote, Vanessa RN RN vc1 Britt Hawkins RN RN kc6 Dawna Robles RN RN jj7 Allie Hauser3 Corrections: (The following items were deleted from the chart) 17:37 17:32 Chief complaint: EMS states: they were toned out for a nasal abscess that started kc6 on Wednesday and began hurting on Wednesday. pt states, "I've had 3 seizures because of it and I can't see well out of my right eye." kc6 17:56 17:37 Neuro: Level of Consciousness is awake, alert, obeys commands, Oriented to kc6 person, place, time, situation, Appropriate for age kc6 18:21 17:37 Neuro: Level of Consciousness is awake, alert, obeys commands, Oriented to kc6 person, place, time, situation, Appropriate for age Reports blurred vision in right eye kc6 18:35 17:37 Derm: Abscess located on right nostril is nickel sized, has no drainage, is red, kc6 is raised, kc6 19:01 17:37 General: Appears in no apparent distress. comfortable, obese, unkempt, well kc6 developed, Behavior is calm, cooperative, appropriate for age, kc6 23:40 23:25 Reassessment: PT YELLING TO KEEP THE DOOR OPEN AND GET HER PAIN MEDS. PT INFORMED jj7 BY THIS NURSE I WILL GET PAIN MEDS SHORTLY I HAVE OTHER PT'S I HAVE TO ATTEND TO AT THE MOMENT. PT YELLS IT'S GOING TO TAKE AN HR TO GET HER MEDS. THE DOCTOR TOLD HER SHE CAN HAVE IT NOW AND I AM TAKING TO LONG. THIS NURSE INFORMED PT THE DOC JUST PUT IN ORDERS FOR MEDS AND SHE HAS BEEN GETTING MEDS AND UPDATES VERY OFTEN AND SHE NEEDS TO STOP YELLING AND BEING RUDE. PT STATES "DO YOU WANT ME TO PUT IN A BAD REVIEW FOR YOU?" jj7
--- NOTE | 2024-11-16 23:36 | EDPHYS ---
Physician Documentation [facility] Name: Fela De Leon Age: 44 yrs Sex: Female : 1980 Arrival Date: 11/16/2024 Time: 17:31 Bed 17 Private MD: ED Physician Guille Smith HPI: 11/16 18:25 This 44 yrs old Female presents to ER via EMS with complaints of Abscess. cp 18:25 the patient presents with a swollen area of the face. cp 18:25 Description: swollen, warm, red. cp 18:25 Onset: The symptoms/episode began/occurred 3 day(s) ago. 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 - Infectious Disease History:: Denies. - Social history:: Smoking status: Patient reports the use of cigarette tobacco products, smokes one-half pack cigarettes per day. ROS: 18:40 Cardiovascular: Negative for chest pain, cp 18:40 Constitutional: Negative for fever, cp 18:40 ENT: Negative for drainage from ear(s), ear pain, sore throat, difficulty swallowing, difficulty handling secretions, 18:40 Respiratory: Negative for cough, shortness of breath, wheezing, 18:40 Abdomen/GI: Negative for abdominal pain, vomiting, diarrhea, constipation, 18:40 Neuro: Positive for history of seizures, 18:40 All other systems are negative, Exam: 18:35 ECG was reviewed by the Attending Physician. cp 18:45 Constitutional: The patient appears in no acute distress, alert, awake, non-toxic, well cp developed, well nourished, obese, uncomfortable, 18:45 Head/face: Noted is mils swelling of cheeks with erythema, superficial wounds noted to cp nasal area. 18:45 Eyes: Periorbital structures: appear normal, Pupils: equal, round, and reactive to light and accomodation, Extraocular movements: intact throughout, Conjunctiva: normal, no exudate, no injection, Sclera: no appreciated abnormality, Lids and lashes: appear normal, bilaterally, 18:45 ENT: External ear(s): are unremarkable, Nose: External nose: swelling is noted, mild erythema, Nasal septum: is midline, no septal hematoma appreciated, Nasal mucosa: mild edema, bleeding, is not appreciated, nasal drainage, is not appreciated, Mouth: Lips: moist, Oral mucosa: moist, Posterior pharynx: Airway: no evidence of obstruction, patent, 18:45 Neck: ROM/movement: is normal, is supple, without pain, no range of motions limitations, no meningismus, no nuchal rigidity, 18:45 Chest/axilla: Inspection: normal, 18:45 Cardiovascular: Rate: normal, Rhythm: regular, 18:45 Respiratory: the patient does not display signs of respiratory distress, Respirations: normal, no use of accessory muscles, no retractions, labored breathing, is not present, Breath sounds: are clear throughout, no decreased breath sounds, no stridor, no wheezing, 18:45 Abdomen/GI: Inspection: abdomen appears normal, Palpation: abdomen is soft and non-tender, in all quadrants, 18:45 Neuro: Orientation: to person, place \T\ time. Mentation: able to follow commands, sleepy, Motor: moves all fours, strength is normal, Sensation: no obvious gross deficits, Vital Signs: 17:32 BP 140 / 69; Pulse 84; Resp 19 S; Temp 98(O); Weight 122.02 kg (R); Height 5 ft. 4 in. kc6 (R); Pain 10/10; 19:01 BP 107 / 55; Pulse 81; Resp 19 S; Pulse Ox 97% on R/A; kc6 19:07 BP 101 / 50; Pulse 98; Resp 16; Pulse Ox 99% ; jj7 20:00 BP 103 / 57; Pulse 84; Resp 17; Pulse Ox 99% ; jj7 21:00 BP 147 / 69; Pulse 90; Resp 16; Pulse Ox 98% ; jj7 22:00 BP 156 / 87; Pulse 88; Resp 16; Pulse Ox 100% ; jj7 23:10 BP 141 / 76; Pulse 83; Resp 16; Pulse Ox 97% ; jj7 17:32 Body Mass Index 46.17 (122.02 kg, 162.56 cm) kc6 17:32 Pain Scale: Adult kc6 MDM: 17:34 Medical Screening Exam initiated cp 23:35 Data reviewed: vital signs, nurses notes, lab test result(s), EKG, radiologic studies, cp CT scan, and as a result, I will discharge patient. 23:35 Differential diagnosis: abscess, allergic reaction, cellulitis, sepsis, abscess. I cp considered the following discharge prescriptions or medication management in the emergency department Medications were administered in the Emergency Department. See MAR. Independent interpretation of the following test(s) in the Emergency Department EKG: See my EKG interpretation above. Counseling: I had a detailed discussion with the patient and/or guardian regarding the historical points, exam findings, and any diagnostic results supporting the discharge/admit diagnosis, lab results, radiology results, to return to the emergency department if symptoms worsen or persist or if there are any questions or concerns that arise at home. ED course: no seizure activity observed while monitoring patient. 11/16 18:23 Order name: Acetaminophen; Complete Time: 20:09 cp 11/16 18:23 Order name: Basic Metabolic Panel; Complete Time: 20:09 cp 11/16 18:23 Order name: CBC with Diff; Complete Time: 21:32 cp 11/16 19:47 Interpretation: Normal except: RBC 5.20; HGB 11.9; MCV 71.7; MCH 22.8; MCHC 31.9; RDW cp 20.2; BASO% 1.5. 11/16 18:23 Order name: ETOH Level; Complete Time: 19:47 cp 11/16 18:23 Order name: Hepatic Function; Complete Time: 20:09 cp 11/16 18:23 Order name: PT-INR; Complete Time: 19:47 cp 11/16 18:23 Order name: Test, Urine; Complete Time: 22:15 cp 11/16 18:23 Order name: Ptt, Activated; Complete Time: 19:47 cp 11/16 18:23 Order name: Salicylate; Complete Time: 20:09 cp 11/16 18:23 Order name: Urinalysis w/ reflexes; Complete Time: 22:15 cp 11/16 18:23 Order name: Urine Drug Screen; Complete Time: 22:15 cp 11/16 22:15 Interpretation: Reviewed. 11/16 20:57 Order name: CBC Smear Scan; Complete Time: 21:32 EDMS 11/16 19:51 Order name: CT Head Brain wo Cont; Complete Time: 22:24 cp 11/16 19:51 Order name: CT Facial Bones W/ Con \T\ Mpr; Complete Time: 22:24 cp 11/16 22:36 Order name: CT Head Brain wo Cont; Complete Time: 23:21 cp 11/16 18:23 Order name: EKG; Complete Time: 18:23 cp 11/16 18:23 Order name: EKG - Nurse/Tech; Complete Time: 18:31 cp 11/16 18:23 Order name: IV Saline Lock; Complete Time: 19:20 cp 11/16 18:23 Order name: Labs collected and sent; Complete Time: 19:20 cp 11/16 18:23 Order name: Suicide Screening ([place]); Complete Time: 18:53 cp EC:35 Rate is 80 beats/min. Rhythm is regular. FL interval is normal. QRS interval is normal. cp QT interval is normal. Interpreted by me. Reviewed by me. Administered Medications: 19:51 Drug: NS 0.9% IV 1000 ml IV at 1000 ml once; to be given as a bolus over 60 minutes j7 Route: IV; Rate: 1000 ml; Site: left hand; 21:57 Follow up: IV Status: Completed infusion j7 19:51 Drug: Ketorolac IVP 15 mg IVP once Route: IVP; Site: left hand; jj7 20:38 Follow up: Response: Pain is unchanged, physician notified jj7 20:38 Drug: fentaNYL (PF) IVP 25 mcg IVP once Route: IVP; Site: left hand; jj7 21:00 Follow up: Response: Pain is decreased jj7 21:55 Drug: Clindamycin IVPB 900 mg IVPB once over 30 mins; (mix in 50 mL) Route: IVPB; jj7 Infused Over: 30 mins; Site: left hand; 22:30 Follow up: IV Status: Completed infusion jj7 21:55 Drug: morphine IVP or IV 4 mg IVP once over 4 mins Route: IVP; Infused Over: 4 mins; jj7 Site: left hand; 22:30 Follow up: Response: Marked relief of symptoms; Pain is decreased jj7 23:28 Not Given (Other Intervention Used): morphineor iv 4 mg IVP once over 4 mins vc1 23:34 Drug: Hydrocodone-Acetaminophen PO (7.5 mg-325 mg) 1 tabs PO once Route: PO; vc1 23:43 Follow up: Response: No adverse reaction jj7 Disposition: 11/17 23:44 Chart complete. cp Disposition Summary: 11/16/24 23:35 Discharge Ordered Notes: Location: Home cp Problem: new cp Symptoms: have improved cp Condition: Stable cp Diagnosis - Cellulitis of face cp - Local infection of the skin and subcutaneous tissue, unspecified - left breast cp - Other seizures cp Followup: cp - With: Private Physician - When: 2 - 3 days - Reason: Recheck today's complaints Discharge Instructions: - Discharge Summary Sheet cp - Cellulitis, Adult cp - Seizure, Adult cp Forms: - Medication Reconciliation Form cp - Antibiotic Education cp - Prescription Opioid Use cp - Patient Portal Instructions cp - Leadership Thank You Letter cp Prescriptions: - mupirocin 2 % Topical ointment - apply 1 application TOPICAL route 3 times per day; 30 gram tube; Refills: 0, cp Product Selection Permitted - Anaprox DS 550 mg Oral Tablet - take 1 tablet ORAL route every 12 hours As needed; 20 tablet; Refills: 0, cp Product Selection Permitted - Clindamycin HCl 300 mg Oral Capsule - take 1 capsule ORAL route every 6 hours for 10 days; 40 capsule; Refills: 0, cp Product Selection Permitted - Bactrim DS 800-160 mg Oral Tablet - take 1 tablet ORAL route every 12 hours for 10 days; 20 tablet; Refills: 0, cp Product Selection Permitted Signatures: Dispatcher [employer] EDMS Leonides Butler PA PA cp Dorothy Wolf RN RN vc1 Britt Hawkins RN RN kc6 Dawna Robles RN RN jj7 Corrections: (The following items were deleted from the chart) 11/16 18:24 18:23 ACETAMINOPHEN+C.LAB.BRZ ordered. EDMS EDMS 18:24 18:23 BASIC METABOLIC PANEL+C.LAB.BRZ ordered. EDMS EDMS 18:24 18:23 CBC+H.LAB.BRZ ordered. EDMS EDMS 18:24 18:23 ETHANOL+C.LAB.BRZ ordered. EDMS EDMS 18:24 18:23 HEPATIC FUNCTION+C.LAB.BRZ ordered. EDMS EDMS 18:24 18:23 PROTIME (+INR)+COAG.LAB.BRZ ordered. EDMS EDMS 18:24 18:23 Test, Urine+UC.LAB.BRZ ordered. EDMS EDMS 18:24 18:23 PTT, ACTIVATED+COAG.LAB.BRZ ordered. EDMS EDMS 18:24 18:23 SALICYLATE+C.LAB.BRZ ordered. EDMS EDMS 18:24 18:23 Urinalysis+U.LAB.BRZ ordered. EDMS EDMS 18:24 18:23 URINE DRUG SCREEN+UC.LAB.BRZ ordered. EDMS EDMS 22:36 22:36 Head Brain Wo Cont+CT.RAD.BRZ ordered. EDMS EDMS
[2024-11-17 00:12] VITALS: TEMP 98
[2024-11-17 00:23] VITALS: BP 141/76; O2SAT 97
--- NOTE | 2024-11-20 11:32 | EKG ---
Test Date: 2024-11-16 Test Time: 18:28:50 Inspector Timers: LASHANDA MEASUREMENT RESULTS: Intervals: Rate: 80 NV: 166 QRSD: 92 QT: 380 QTc: 438 [place]: P: 63 NV: 166 QRS: 85 T: 56 INTERPRETIVE STATEMENTS: Normal sinus rhythm Nonspecific T wave abnormality Abnormal ECG Compared to ECG 07/07/2024 16:56:11 No significant changes Electronically Signed On 11-20-24 11:23:31 CDT by Mitchel Whittaker
== END 2024-11-16 23:45 | disposition home or self-care (01) ==
LOC: ER 17:31
DX: L03.211 Cellulitis of face (principal); L08.9 Local infection of the skin and subcutaneous tissue, unspecified; G40.89 Other seizures; F17.210 Nicotine dependence, cigarettes, uncomplicated
CPT/HCPCS: 96365; 96361; 93005; 85025; 81001; 80048; 36415; 81025; 85610; 80076; 85730; 80307; 70450 ×2; 70487; 76377; 96375; 99285; 80143; 80179; 82077; Q9967; J3010; J7030

== ENCOUNTER 2024-11-18 15:14 | Emergency (ER) | payer MEDICAID ==
[2024-11-18 15:54] LABS: Absolute Basophils 0.1 K/uL (0-0.5); Absolute Eosinophils 0.1 K/uL (0-0.5); Absolute Lymphocytes (CBC) 1.9 K/uL (0.7-4.9); Absolute Monocytes 0.4 K/uL (0.1-1.3); Absolute Neutrophil 3.2 K/uL (1.8-8.0); Basophils % 1.2 % (0-1.3); Eosinophils % 2.6 % (0-4.4); Hematocrit 34.8 % (36.0-45.0); Hemoglobin 10.9 g/dL (12.0-15.0); Lymphocytes % 33.1 % (15.3-44.8); MCH 22.7 pg (27.0-35.0); MCHC 31.3 g/dL (32.0-36.0); MCV 72.4 fL (80-100); MPV 8.5 fL (7.6-11.3); Monocytes % 6.9 % (3.3-12.3); Neutrophils % 56.2 % (41.7-73.7); Nucleated Red Blood Cells % 0.1 % (0-0); Platelets 279 thou/uL (152-406)
[2024-11-18 16:03] LABS: PT Prothrombin Time 12.5 SECONDS (10-13.0); Protime INR 1.1
[2024-11-18 16:13] LABS: ALT/SGPT 24 U/L (13-56); AST/SGOT 13 U/L (15-37); Albumin 3.4 g/dL (3.4-5.0); Albumin/Globulin Ratio 0.9 (1.1-1.8); Alkaline Phosphatase 99 U/L (45-117); Anion Gap 10.3 mEq/L (5.0-15.0); BUN Blood Urea Nitrogen 6 mg/dL (7-18); Bicarbonate 24 mEq/L (21-32); Bilirubin Total 0.2 mg/dL (0.2-1.0); Globulin 3.9 g/dL (2.3-3.5); Glomerular Filtration Rate 93 ml/min (=/>90); Glucose Level 122 mg/dL (74-106); Magnesium 2.2 mg/dL (1.6-2.4); NT PRO-BNP 31 pg/mL (<125); Potassium 4.3 mEq/L (3.5-5.1); Protein, Total 7.3 g/dL (6.4-8.2); Sodium Level 136 mEq/L (136-145); Troponin High Sensitivity 10.4 pg/mL (<58.9)
[2024-11-18 16:17] LABS: Bilirubin Direct < 0.2 mg/dL (0-0.2)
--- NOTE | 2024-11-18 16:38 | RAD REPORT ---
EXAM: CT brain without contrast HISTORY: Dizziness;Trauma COMPARISON: None TECHNIQUE: Multiple contiguous axial images were obtained and a CT of the brain without contrast. Sag ittal and coronal reformats were performed. FINDINGS: No evidence of hydrocephalus, intracranial hemorrhage, or extra-axial fluid collection. The brain is normal in morphology. The calvarium is intact. Complete opacification of the left maxillary sinus. Mastoid air cells are es sentially clear. IMPRESSION: No evidence of acute intracranial abnormality. Complete opacification of the left maxillary sinus and left mastoid air cells, could relate to ongoin g infection or inflammation. EXAM: CT of the cervical spine without contrast HISTORY: Dizziness;Trauma COMPARISON: None TECHNIQUE: Multiple contiguous axial images were obtained in a CT of the cervical spine without contr ast. Sagittal and coronal reformats were performed. FINDINGS: Incidentally noted bilateral cervical ribs. The vertebral bodies demonstrate normal height and alignment. No evidence of acute fracture or subluxation.. No degenerative changes are present. No prevertebral soft tissue swelling is seen. The posterior facets are well aligned. Normal alignment of the skull base with the cervical spine is seen. The lung apices are unremarkable. IMPRESSION: No evidence of acute osseous abnormality of the cervical spine.
--- NOTE | 2024-11-18 16:40 | RAD REPORT ---
EXAMINATION: CT MAXILLOFACIAL WITHOUT CONTRAST CLINICAL INDICATION: nose/face TRAUMA TECHNIQUE: Axial images were obtained through the facial bones and orbits without intravenous contras t. Sagittal and coronal reconstructions were created from the data. One or more of the following dose reduction techniques were used: Automated exposure control, adjustment of the mA and/or kV accor ding to patient size, and/or iterative reconstruction. Unless otherwise specified, incidental findings do not require dedicated imaging follow-up. COMPARISON: No prior exam. FINDINGS: SOFT TISSUE: No significant abnormalities. BONES: No evidence of fracture, dislocation, or aggressive osseous lesions. No lesion of the visuali zed skull base or calvarium. ORBITS: The globes are intact. No intraorbital hemorrhage or mass. SINUSES: Complete opacification of the left maxillary sinus and partial opacification of left mastoid air cells. IMPRESSION: No acute osseous abnormalities. Complete opacification of the left maxillary sinus and partial opacification of left mastoid air cell s, could relate to infectious or inflammatory etiologies.
--- NOTE | 2024-11-18 16:59 | RAD REPORT ---
EXAMINATION: ONE VIEW CHEST XR CLINICAL INDICATION: Female, 44 years old.,dizzy TECHNIQUE: Frontal chest projection is submitted. Examination is limited by patient positioning and t echnique. COMPARISON: 09/20/2024 FINDINGS: The lungs are well inflated and clear although under exposure somewhat limits evaluation especially a t the left base. No pneumothorax or sizable effusion. The heart is normal in size. Mediastinal contours are unremarkable. IMPRESSION: No acute intrathoracic abnormalities.
--- NOTE | 2024-11-18 17:00 | EDPHYS ---
Physician Documentation [facility] Name: Fela De Leon Age: 44 yrs Sex: Female : 1980 Arrival Date: 11/18/2024 Time: 15:14 Bed 27 Private MD: ED Physician Trevon Armenta HPI: 11/18 15:23 This 44 yrs old Female presents to ER via Unassigned with complaints of Fall Injury. sp3 15:23 44-year-old female with history of COPD, hypertension, morbid obesity presents to the 3 ED via EMS for dizziness prodrome leading to a mechanical ground-level fall where she injured her nose and forehead with possible loss of consciousness. Patient poor historian and not very cooperative with history. She denies any headache, neck pain, chest pain, shortness of breath, abdominal pain, ongoing dizziness, or any other signs or symptoms on ROS at this time.. Historical: - Allergies: 15:30 Brand name Carbatrol; aa5 15:30 Bromfed DM; aa5 15:30 BuSpar; aa5 15:30 Cipro; aa5 15:30 Depakote; aa5 15:30 Haldol; aa5 15:30 Keppra; aa5 15:30 Ritalin; aa5 15:30 Rocephin; aa5 15:30 Tamiflu; aa5 15:30 Tegretol; aa5 15:30 Tessalon Perles; aa5 15:30 Wellbutrin; aa5 15:30 Zoloft; aa5 - PMHx: 15:30 Anxiety; Asthma; CHF; COPD; PTSD; Seizures; aa5 - PSHx: 15:30 hysterectomy; Right knee x2; aa5 - Immunization history:: Adult Immunizations. - Infectious Disease History:: Denies. - Social history:: Smoking status: Patient reports the use of cigarette tobacco products. ROS: 15:25 Constitutional: Negative for fever, chills, and weight loss, Eyes: Negative for injury, sp3 pain, redness, and discharge, Neck: Negative for injury, pain, and swelling, Cardiovascular: Negative for chest pain, palpitations, and edema, Respiratory: Negative for shortness of breath, cough, wheezing, and pleuritic chest pain, Abdomen/GI: Negative for abdominal pain, nausea, vomiting, diarrhea, and constipation, Back: Negative for injury and pain, MS/Extremity: Negative for injury and deformity, Skin: Negative for injury, rash, and discoloration, Psych: Negative for depression, anxiety, suicide ideation, homicidal ideation, and hallucinations, Allergy/Immunology: Negative for hives, rash, and allergies, Endocrine: Negative for neck swelling, polydipsia, polyuria, polyphagia, and marked weight changes, 15:25 All other systems are negative, Exam: 15:25 Constitutional: This is a well developed, well nourished patient who is awake, alert, sp3 and in no acute distress. Eyes: Pupils equal round and reactive to light, extra-ocular motions intact. Lids and lashes normal. Conjunctiva and sclera are non-icteric and not injected. Cornea within normal limits. Periorbital areas with no swelling, redness, or edema. ENT: Nares patent. No nasal discharge, no septal abnormalities noted. External auditory canals are clear. Oropharynx with no redness, swelling, or masses, exudates, or evidence of obstruction, uvula midline. Mucous membranes moist. Neck: Trachea midline, no thyromegaly or masses palpated, and no cervical lymphadenopathy. Supple, full range of motion without nuchal rigidity, or vertebral point tenderness. No Meningismus. Chest/axilla: Normal chest wall appearance and motion. Nontender with no deformity. No lesions are appreciated. Cardiovascular: Regular rate and rhythm with a normal S1 and S2. No gallops, murmurs, or rubs. Normal PMI, no JVD. No pulse deficits. Respiratory: Lungs have equal breath sounds bilaterally, clear to auscultation and percussion. No rales, rhonchi or wheezes noted. No increased work of breathing, no retractions or nasal flaring. Abdomen/GI: Soft, non-tender, with normal bowel sounds. No distension or tympany. No guarding or rebound. No evidence of tenderness throughout. Back: No spinal tenderness. No costovertebral tenderness. Full range of motion. Skin: Warm, dry with normal turgor. Normal color with no rashes, no lesions, and no evidence of cellulitis. MS/ Extremity: Pulses equal, no cyanosis. Neurovascular intact. Full, normal range of motion. Neuro: Awake and alert, GCS 15, oriented to person, place, time, and situation. Cranial nerves II-XII grossly intact. Motor strength 5/5 in all extremities. Sensory grossly intact. Cerebellar exam normal. Normal gait. Psych: Awake, alert, with orientation to person, place and time. Behavior, mood, and affect are within normal limits. 15:25 Constitutional: The patient appears Extreme smell of cigarette smoke present on patient Vital Signs: 15:20 BP 126 / 83; Pulse 76; Resp 14; Temp 98.1; Pulse Ox 98% on R/A; hb 16:20 BP 120 / 65; Pulse 75; Resp 18 S; Pulse Ox 97% on R/A; aa5 17:20 BP 125 / 74; Pulse 72; Resp 16 S; Pulse Ox 98% on R/A; aa5 MDM: 15:20 Medical Screening Exam initiated sp3 15:26 Data reviewed: vital signs, old medical records, lab test result(s), EKG, radiologic sp3 studies. ED course: 44-year-old female with PMH above now with dizziness and just mechanical fall. Vital signs are stable. Will obtain CT scan of the head, C-spine and maxillofacial bones. Also routine labs, EKG, chest x-ray. If workup negative we will safely discharge patient home. I am at highly suspicious of acute coronary syndrome, TAD, PE, or any other critical process.. 11/18 15:21 Order name: Basic Metabolic Panel; Complete Time: 16:17 sp3 11/18 15:21 Order name: CBC with Diff; Complete Time: 16:17 sp3 11/18 15:21 Order name: LFT's; Complete Time: 16:17 sp3 11/18 15:21 Order name: Magnesium; Complete Time: 16:17 sp3 11/18 15:21 Order name: NT PRO-BNP; Complete Time: 16:17 sp3 11/18 15:21 Order name: PT-INR; Complete Time: 16:17 sp3 11/18 15:21 Order name: Troponin HS; Complete Time: 16:17 sp3 11/18 15:21 Order name: XRAY Chest (1 view); Complete Time: 17:00 sp3 11/18 15:21 Order name: CT Head C Spine; Complete Time: 16:59 sp3 11/18 15:31 Order name: Facial Bones W/ Mpr; Complete Time: 16:59 EDMS 11/18 15:21 Order name: Cardiac monitoring; Complete Time: 15:54 sp3 11/18 15:21 Order name: EKG - Nurse/Tech; Complete Time: 17:35 sp3 11/18 15:21 Order name: IV Saline Lock; Complete Time: 15:54 sp3 11/18 15:21 Order name: Labs collected and sent; Complete Time: 15:54 sp3 11/18 15:21 Order name: O2 Per Protocol; Complete Time: 15:54 sp3 11/18 15:21 Order name: O2 Sat Monitoring; Complete Time: 15:54 sp3 11/18 15:21 Order name: NPO; Complete Time: 15:54 sp3 Administered Medications: No medications were administered Disposition Summary: 11/18/24 16:59 Discharge Ordered Notes: Location: Home sp3 Condition: Stable sp3 Diagnosis - Dizziness, mechanical fall, facial contusion sp3 Followup: sp3 - With: Private Physician - When: Upon discharge from the Emergency Department - Reason: Continuance of care Discharge Instructions: - Discharge Summary Sheet sp3 - Facial or Scalp Contusion sp3 Forms: - Medication Reconciliation Form sp3 - Antibiotic Education sp3 - Prescription Opioid Use sp3 - Patient Portal Instructions sp3 - Leadership Thank You Letter sp3 Signatures: Dispatcher [employer] Iliana Spann RN RN aa5 Trevon Armenta MD MD sp3 Corrections: (The following items were deleted from the chart) 15:21 15:21 BASIC METABOLIC PANEL+C.LAB.BRZ ordered. EDPA EDMS 15:21 15:21 CBC+H.LAB.BRZ ordered. EDPA EDMS 15:21 15:21 HEPATIC FUNCTION+C.LAB.BRZ ordered. EDMS EDMS 15:21 15:21 MAGNESIUM+C.LAB.BRZ ordered. EDMS EDMS 15:21 15:21 PROBNP+C.LAB.BRZ ordered. EDPA EDMS 15:21 15:21 PROTIME (+INR)+COAG.LAB.BRZ ordered. EDPA EDMS 15:21 15:21 Troponin High Sensitivity+C.LAB.BRZ ordered. EDPA EDMS 15:21 15:21 Chest Single View+RAD.RAD.BRZ ordered. EDPA EDMS 15:21 15:21 Head C Spine MPR Wo Con+CT.RAD.BRZ ordered. EDMS EDMS 15: 15:22 Maxillofacial W/Wo+CT.RAD.BRZ ordered. EDMS EDMS
--- NOTE | 2024-11-18 17:00 | ER ---
Nurse's Notes [facility] Name: Fela De Leon Age: 44 yrs Sex: Female : 1980 Arrival Date: 11/18/2024 Time: 15:14 Bed 27 Private MD: Diagnosis: Dizziness, mechanical fall, facial contusion Presentation: 11/18 15:20 Chief complaint: EMS states: Toned out for fall onto face due to dizziness, BP 125/82, hb HR 70s, SpO2 94% on RA, improved to 100% on NRB. 15:20 Care prior to arrival: None. hb 15:20 Acuity: RUPESH 3 hb 15:20 Method Of Arrival: EMS: [facility] hb 15:20 Coronavirus screen: At this time, the client does not indicate any symptoms associated hb with coronavirus-19. Ebola Screen: No symptoms or risks identified at this time. 15:20 Risk Assessment: Do you want to hurt yourself or someone else? Patient reports no aa5 desire to harm self or others. 15:20 Onset of symptoms was November 18, 2024. aa5 15:20 Initial Sepsis Screen: Does the patient meet any 2 criteria? No. Patient's initial aa5 sepsis screen is negative. Does the patient have a suspected source of infection? No. Patient's initial sepsis screen is negative. Historical: - Allergies: 15:30 Brand name Carbatrol; aa5 15:30 Bromfed DM; aa5 15:30 BuSpar; aa5 15:30 Cipro; aa5 15:30 Depakote; aa5 15:30 Haldol; aa5 15:30 Keppra; aa5 15:30 Ritalin; aa5 15:30 Rocephin; aa5 15:30 Tamiflu; aa5 15:30 Tegretol; aa5 15:30 Tessalon Perles; aa5 15:30 Wellbutrin; aa5 15:30 Zoloft; aa5 - PMHx: 15:30 Anxiety; Asthma; CHF; COPD; PTSD; Seizures; aa5 - PSHx: 15:30 hysterectomy; Right knee x2; aa5 - Immunization history:: Adult Immunizations. - Infectious Disease History:: Denies. - Social history:: Smoking status: Patient reports the use of cigarette tobacco products. Screenin:20 [facility] ED Fall Risk Assessment (Adult) History of falling in the last 3 months, aa5 including since admission Yes- single mechanical fall (1 pt) Confusion or Disorientation No (0 pts) Intoxicated or Sedated Yes (3 pts) Impaired Gait Yes (1 pt) Mobility Assist Device Used Altered Elimination Yes (1 pt) Score/Fall Risk Level 3 or more points = High Risk Oriented to surroundings, Maintained a safe environment, Educated pt \\T\\ family on fall prevention, incl call for assistance when getting out of bed, Assessed \\T\\ reinforced patient's understanding of fall precautions, Hourly rounding (assess needs \\T\\ fall precautionary measures) done. Abuse screen: Denies threats or abuse. Tuberculosis screening: No symptoms or risk factors identified. 15:20 Nutritional screening: No deficits noted. aa5 Assessment: 15:20 Reassessment: Pt yelling "I need to pee", pt requesting to walk to the bathroom, pt was aa5 educated about need to stay in bed due to risk for falls and decreased neuro status at this time, pt agrees to purewick. Pure wick placed to suction for elimination needs. . 15:20 General: Appears unkempt, Behavior is drowsy, Smells of cigarettes . Pain: Complains of aa5 pain in face. Neuro: Level of Consciousness is obeys commands, drowsy . Oriented to person, place, time, Moves all extremities. Cardiovascular: Heart tones S1 S2 present Rhythm is regular. Respiratory: Airway is patent Respiratory effort is even, unlabored, Respiratory pattern is regular, symmetrical. GI: Abdomen is obese. : No signs and/or symptoms were reported regarding the genitourinary system. EENT: Nares redness noted to right nare. . Derm: Skin is pink, warm \\T\\ dry. Musculoskeletal: Range of motion: intact in all extremities. 15:30 Reassessment: Pt yelling "I can't pee, I need to go to the bathroom or I need a aa5 catheter". Pt was reeducated about need to stay in bed, was also notified about pt's request for urinary catheter. . 15:49 Reassessment: Pt requesting pain medication, pt having a hard time staying awake, aa5 was notified. Pt now to CT scan. . 16:20 Reassessment: Pt sleeping with snoring respirations. . aa5 17:10 Reassessment: Patient is alert, oriented x 3, equal unlabored respirations, skin aa5 warm/dry/pink. Pt assisted to restroom via wheelchair. . 17:30 Reassessment: Patient is alert, oriented x 3, equal unlabored respirations, skin aa5 warm/dry/pink. Vital Signs: 15:20 BP 126 / 83; Pulse 76; Resp 14; Temp 98.1; Pulse Ox 98% on R/A; hb 16:20 BP 120 / 65; Pulse 75; Resp 18 S; Pulse Ox 97% on R/A; aa5 17:20 BP 125 / 74; Pulse 72; Resp 16 S; Pulse Ox 98% on R/A; aa5 ED Course: 15:19 Patient arrived in ED. aa5 15:20 Trevon Armenta MD is Attending Physician. sp3 15:20 Arm band placed on Patient placed in an exam room, on a stretcher. aa5 15:20 Patient has correct armband on for positive identification. Bed in low position. Call aa5 light in reach. Side rails up X2. Client placed on continuous cardiac and pulse oximetry monitoring. NIBP monitoring applied. property assessment monitor on. Pulse ox on. NIBP on. 15:28 Triage completed. hb 15:29 Iliana Murillo, RN is Primary Nurse. aa5 15:44 Initial lab(s) drawn, by me, sent to lab. Inserted saline lock: 22 gauge in right upper aa5 arm, using aseptic technique. Blood collected. Flushed with 10 mL NS. 16:09 XRAY Chest (1 view) In Process Unspecified. EDMS 16:14 CT Head C Spine In Process Unspecified. EDMS 16:14 Facial Bones W/ Mpr In Process Unspecified. EDMS 16:44 No provider procedures requiring assistance completed. aa5 17:30 IV discontinued, intact, bleeding controlled, No redness/swelling at site. Pressure aa5 dressing applied. Administered Medications: No medications were administered Medication: 16:44 VIS not applicable for this client. aa5 Outcome: 16:59 Discharge ordered by . sp3 17:30 Discharged to home ambulatory, Pt declined wheelchair aa5 17:30 Condition: stable 17:30 Discharge instructions given to patient, Instructed on discharge instructions, follow up and referral plans. Demonstrated understanding of instructions, follow-up care, 17:35 Patient left the ED. aa5 Signatures: Dispatcher [employer] Iliana Spann RN RN aa5 Melisa Baer RN RN Trevon Armenta MD MD sp3 Corrections: (The following items were deleted from the chart) 15:28 15:23 Chief complaint: hb hb 16:44 15:19 Abuse screen: Denies threats or abuse. aa5 aa 16:44 15:19 Nutritional screening: No deficits noted. aa5 aa5 16:44 15:19 Tuberculosis screening: No symptoms or risk factors identified. aa5 aa 16:44 15:19 [facility] ED Fall Risk Assessment (Adult) History of falling in the last 3 months, aa5 including since admission Yes- single mechanical fall (1 pt) Confusion or Disorientation No (0 pts) Intoxicated or Sedated Yes (3 pts) Impaired Gait Yes (1 pt) Mobility Assist Device Used Altered Elimination Yes (1 pt) Score/Fall Risk Level 3 or more points = High Risk Oriented to surroundings, Maintained a safe environment, Educated pt \\T\\ family on fall prevention, incl call for assistance when getting out of bed, Assessed \\T\\ reinforced patient's understanding of fall precautions, Hourly rounding (assess needs \\T\\ fall precautionary measures) done, aa5
[2024-11-18 17:53] VITALS: BP 126/83; TEMP 98.1; O2SAT 98
--- NOTE | 2024-11-20 11:22 | EKG ---
Test Date: 2024-11-18 Test Time: 17:17:07 Global Safety Officer: ADRIANA MEASUREMENT RESULTS: Intervals: Rate: 85 [place]: 158 QRSD: 92 QT: 374 QTc: 445 [place]: P: 59 [place]: 158 QRS: 84 T: 65 INTERPRETIVE STATEMENTS: Normal sinus rhythm Nonspecific T wave abnormality Abnormal ECG Compared to ECG 11/16/2024 18:28:50 No significant changes Electronically Signed On 11-20-24 11:18:31 CDT by Mitchel Whittaker
== END 2024-11-18 17:35 | disposition home or self-care (01) ==
LOC: ER 15:14
DX: R42 Dizziness and giddiness (principal); S00.83XA Contusion of other part of head, initial encounter; W18.30XA Fall on same level, unspecified, initial encounter; Z72.0 Tobacco use
CPT/HCPCS: 36415; 70450; 70486; 71045; 72125; 76377; 80048; 80076; 83735; 83880; 84484; 85025; 85610; 93005; 99284

== ENCOUNTER 2024-11-20 19:39 | Emergency (ER) | payer MEDICAID ==
[2024-11-20] MEDS ORDERED: KETOROLAC 30 MG/ML INJ ONE ×2 (20:02→20:03)
[2024-11-20] MEDS ORDERED: ACETAMINOPHEN 500 MG TAB ONE (20:03)
--- NOTE | 2024-11-20 20:44 | ER ---
Nurse's Notes [facility] Name: Fela De Leon Age: 44 yrs Sex: Female : 1980 Arrival Date: 11/20/2024 Time: 19:39 Bed 8 Private MD: Diagnosis: Pain in left shoulder;Fall on same level from slipping, tripping and stumbling with subsequent striking against object Presentation: 11/20 19:47 Chief complaint: Patient states: ground level fall. pain to left shoulder. Coronavirus lg3 screen: Client denies travel out of the [place] in the last 14 days. At this time, the client does not indicate any symptoms associated with coronavirus-19. Ebola Screen: No symptoms or risks identified at this time. Initial Sepsis Screen: Does the patient meet any 2 criteria? No. Patient's initial sepsis screen is negative. Does the patient have a suspected source of infection? No. Patient's initial sepsis screen is negative. Risk Assessment: Do you want to hurt yourself or someone else? Patient reports no desire to harm self or others. Onset of symptoms was November 20, 2024. 19:47 Method Of Arrival: EMS: [facility] lg3 19:47 Acuity: RUPESH 4 lg3 Triage Assessment: 19:49 General: Appears in no apparent distress. comfortable, Behavior is fussy. General: lg3 Appears unkempt. Pain: Complains of pain in left shoulder. EENT: No deficits noted. No signs and/or symptoms were reported regarding the EENT system. Neuro: No deficits noted. Rivera Agitation-Sedation Scale (RASS): 0 - Alert and Calm Level of Consciousness is awake, alert, obeys commands, Oriented to person, place, time, situation. Cardiovascular: No deficits noted. Denies chest pain, shortness of breath, Capillary refill < 3 seconds Clubbing of nail beds is absent JVD is present Patient's skin is warm and dry. Respiratory: No deficits noted. Airway is patent Respiratory effort is even, unlabored, Respiratory pattern is regular, symmetrical. GI: No deficits noted. No signs and/or symptoms were reported involving the gastrointestinal system. Abdomen is round non-distended, obese. : No signs and/or symptoms were reported regarding the genitourinary system. Derm: No deficits noted. Skin is intact, is healthy with good turgor, Skin is dry, Skin is normal, Skin temperature is warm. Musculoskeletal: Circulation, motion, and sensation intact. Range of motion: intact in all extremities, Reports pain in left shoulder. 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 - Infectious Disease History:: Denies. - Social history:: Smoking status: Patient reports the use of cigarette tobacco products, smokes one-half pack cigarettes per day, Patient/guardian denies using alcohol, street drugs. Screenin:54 [facility] ED Fall Risk Assessment (Adult) History of falling in the last 3 months, lg3 including since admission Yes- single mechanical fall (1 pt) Confusion or Disorientation No (0 pts) Intoxicated or Sedated No (0 pts) Impaired Gait No (0 pts) Mobility Assist Device Used No (0 pt) Altered Elimination No (0 pt) Score/Fall Risk Level 0 - 2 = Low Risk Oriented to surroundings, Maintained a safe environment, Educated pt \T\ family on fall prevention, incl call for assistance when getting out of bed, Assessed \T\ reinforced patient's understanding of fall precautions. Abuse screen: Denies threats or abuse. Denies injuries from another. Nutritional screening: No deficits noted. Tuberculosis screening: No symptoms or risk factors identified. Assessment: 19:54 General: see triage assessment. lg3 21:02 Reassessment: Patient appears in no apparent distress at this time. No changes from lg3 previously documented assessment. Patient and/or family updated on plan of care and expected duration. Pain level reassessed. Patient is alert, oriented x 3, equal unlabored respirations, skin warm/dry/pink. Vital Signs: 19:47 BP 136 / 55; Pulse 83; Resp 16; Temp 98.6(O); Pulse Ox 99% on R/A; Weight 131.09 kg lg3 (R); Height 5 ft. 4 in. ; 21:03 BP 129 / 61; Pulse 77; Resp 17 S; Pulse Ox 99% on R/A; lg3 19:47 Body Mass Index 49.61 (131.09 kg, 162.56 cm) lg3 ED Course: 19:40 Patient arrived in ED. ss 19:45 Claudia Santillan RN is Primary Nurse. lg3 19:46 Leonides Butler PA is PHCP. cp 19:46 Leonides Smalls MD is Attending Physician. cp 19:49 Triage completed. lg3 19:49 Arm band placed on right wrist. lg3 19:54 Patient has correct armband on for positive identification. Placed in gown. Bed in low lg3 position. Call light in reach. Side rails up X2. Client placed on continuous cardiac and pulse oximetry monitoring. NIBP monitoring applied. Door closed. Noise minimized. Warm blanket given. Pillow given. 19:54 Patient maintains SpO2 saturation greater than 95% on room air. lg3 20:42 Kyle iPedra MD is Referral Physician. cp 20:47 XRAY Shoulder LEFT 2 view In Process Unspecified. EDMS 21:03 No provider procedures requiring assistance completed. Patient did not have IV access lg3 during this emergency room visit. Administered Medications: 20:07 Drug: Acetaminophen PO 1000 mg PO once Route: PO; bm8 21:03 Follow up: Response: No adverse reaction lg3 20:07 Drug: Ketorolac IM 60 mg IM once Route: IM; Site: right deltoid; bm8 21:03 Follow up: Response: No adverse reaction lg3 Medication: 19:54 VIS not applicable for this client. lg3 Outcome: 20:43 Discharge ordered by MD. cp 21:03 Discharged to home ambulatory, lg3 21:03 Condition: stable 21:03 Discharge instructions given to patient, Instructed on discharge instructions, follow up and referral plans. medication usage, Demonstrated understanding of instructions, follow-up care, medications, Prescriptions given X 1, 21:04 Patient left the ED. lg3 Signatures: Dispatcher [employer] EDMS Mckenzie Crowder, RN RN ss Leonides Butler PA PA cp Able, Lacie RN RN lg3 Ad Piedra RN RN bm8
--- NOTE | 2024-11-20 20:44 | EDPHYS ---
Physician Documentation [facility] Name: Fela De Leon Age: 44 yrs Sex: Female : 1980 Arrival Date: 11/20/2024 Time: 19:39 Bed 8 Private MD: ED Physician Leonides Smalls HPI: 11/20 19:55 This 44 yrs old Female presents to ER via EMS with complaints of Fall Injury. cp 19:55 Details of fall: The patient fell from an upright position, while standing. cp 19:55 Onset: The symptoms/episode began/occurred today. cp 19:55 Associated injuries: The patient sustained left shoulder, painful injury. Severity of cp symptoms: in the emergency department the symptoms are unchanged, despite EMS interventions. 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 - Infectious Disease History:: Denies. - Social history:: Smoking status: Patient reports the use of cigarette tobacco products, smokes one-half pack cigarettes per day, Patient/guardian denies using alcohol, street drugs. ROS: 20:00 Constitutional: Negative for body aches, chills, fever, poor PO intake, cp 20:00 MS/extremity: Positive for pain, of the left shoulder, Negative for decreased range of cp motion, deformity, 20:00 Eyes: Negative for injury, pain, redness, and discharge, cp 20:00 ENT: Negative for drainage from ear(s), ear pain, sore throat, difficulty swallowing, difficulty handling secretions, 20:00 Cardiovascular: Negative for chest pain, palpitations, 20:00 Respiratory: Negative for cough, shortness of breath, wheezing, 20:00 Abdomen/GI: Negative for abdominal pain, vomiting, diarrhea, constipation, 20:00 Neuro: Negative for altered mental status, loss of consciousness, 20:00 All other systems are negative, Exam: 20:05 Constitutional: The patient appears in no acute distress, alert, awake, cp non-diaphoretic, non-toxic, well developed, well nourished, obese, uncomfortable, 20:05 Head/Face: Normocephalic, atraumatic. cp 20:05 Neck: C-spine: vertebral tenderness, is not appreciated, crepitus, is not appreciated, 20:05 Chest/axilla: Inspection: normal, 20:05 Cardiovascular: Rate: normal, Rhythm: regular, Edema: is not appreciated, JVD: is not appreciated, 20:05 Respiratory: the patient does not display signs of respiratory distress, Respirations: normal, no use of accessory muscles, no retractions, labored breathing, is not present, Breath sounds: are clear throughout, no decreased breath sounds, no stridor, no wheezing, 20:05 Abdomen/GI: Exam negative for discomfort, distension, guarding, Inspection: obese 20:05 Back: pain, is absent, 20:05 Musculoskeletal/extremity: Extremities: noted in the left shoulder: pain, There is no evidence of decreased ROM, deformity, ROM: limited passive range of motion due to pain, in the left shoulder, Pulses: noted to be 2+ in the left radial artery, the left hand and left arm Sensation intact. 20:05 Neuro: Orientation: to person, place \T\ time. Mentation: able to follow commands, Motor: moves all fours, no focal deficits, Gait: is steady, Vital Signs: 19:47 BP 136 / 55; Pulse 83; Resp 16; Temp 98.6(O); Pulse Ox 99% on R/A; Weight 131.09 kg lg3 (R); Height 5 ft. 4 in. ; 21:03 BP 129 / 61; Pulse 77; Resp 17 S; Pulse Ox 99% on R/A; lg3 19:47 Body Mass Index 49.61 (131.09 kg, 162.56 cm) lg3 MDM: 19:47 Medical Screening Exam initiated cp 20:43 Data reviewed: vital signs, nurses notes, radiologic studies, plain films, and as a cp result, I will discharge patient. 20:43 Differential diagnosis: closed head injury, contusion, fracture, dislocation. I cp considered the following discharge prescriptions or medication management in the emergency department Medications were administered in the Emergency Department. See MAR. Independent interpretation of the following test(s) in the Emergency Department X-Ray: My interpretation is images of left shoulder negative for fracture. Care significantly affected by the following chronic conditions: Congestive Heart Failure, Chronic Obstructive Pulmonary Disease, Obesity. Counseling: I had a detailed discussion with the patient and/or guardian regarding the historical points, exam findings, and any diagnostic results supporting the discharge/admit diagnosis, radiology results, to return to the emergency department if symptoms worsen or persist or if there are any questions or concerns that arise at home. Response to treatment: the patient's symptoms have mildly improved after treatment, and as a result, I will discharge patient. 11/20 19:51 Order name: XRAY Shoulder LEFT 2 view cp 11/20 20:26 Order name: Sling; Complete Time: 21:02 cp Administered Medications: 20:07 Drug: Acetaminophen PO 1000 mg PO once Route: PO; bm8 21:03 Follow up: Response: No adverse reaction lg3 20:07 Drug: Ketorolac IM 60 mg IM once Route: IM; Site: right deltoid; bm8 21:03 Follow up: Response: No adverse reaction lg3 Disposition: 11/21 15:35 Co-signature as Attending Physician, Leonides Smalls MD I agree with the assessment and luc plan of care. Disposition Summary: 11/20/24 20:43 Discharge Ordered Notes: Location: Home cp Problem: new cp Symptoms: have improved cp Condition: Stable cp Diagnosis - Pain in left shoulder cp - Fall on same level from slipping, tripping and stumbling with subsequent striking cp against object Followup: cp - With: Kyle Piedra MD - When: 5 - 6 days - Reason: left shoulder pain Discharge Instructions: - Discharge Summary Sheet cp - Shoulder Pain cp - Shoulder Range of Motion Exercises cp Forms: - Medication Reconciliation Form cp - Antibiotic Education cp - Prescription Opioid Use cp - Patient Portal Instructions cp - Leadership Thank You Letter cp Prescriptions: - Diclofenac Sodium 75 mg Oral Tablet Sustained Release - take 1 tablet ORAL route 2 times per day; 30 tablet; Refills: 0, Product cp Selection Permitted Signatures: Dispatcher [employer] EDLeonides Gonsales MD MD cha Page, Corey, Claudia Herbert cp, RN RN lg3 Ad Piedra RN RN bm8 Corrections: (The following items were deleted from the chart) 11/20 19:51 19:51 Shoulder Left 2 View+RAD.RAD.BRZ ordered. EDMS EDMS 20:50 20:25 Head C Spine MPR Wo Con+CT.RAD.BRZ ordered. EDMS EDMS
--- NOTE | 2024-11-20 21:04 | RAD REPORT ---
EXAMINATION: Shoulder Left 2+ Views CLINICAL INDICATION: Female, 44 years old. fall;Pain COMPARISON: No prior exam. FINDINGS: No acute fracture. No malalignment/dislocation. Mild left AC joint degenerative changes. Other: n/a IMPRESSION: No acute osseous abnormality.
[2024-11-20 21:14] VITALS: TEMP 98.6; O2SAT 99
[2024-11-20 21:16] VITALS: BP 129/61
== END 2024-11-20 21:04 | disposition home or self-care (01) ==
LOC: ER 19:39
DX: M25.512 Pain in left shoulder (principal); W01.198A Fall on same level from slipping, tripping and stumbling with subsequent striking against other object, initial encounter; F17.210 Nicotine dependence, cigarettes, uncomplicated
CPT/HCPCS: 96372; 99284

== ENCOUNTER 2024-11-30 11:32 | Inpatient (IN) | payer MEDICAID ==
[2024-11-30] MEDS ORDERED: ONDANSETRON 4 MG/2 ML VIAL ONE (14:36)
[2024-11-30] MEDS ORDERED: MORPHINE 4 MG/ML SYR ONE ×2 (14:36→16:51)
[2024-11-30] MEDS ORDERED: NA CHLORIDE 0.9% 1,000 ML ONE (14:37)
[2024-11-30] MEDS ORDERED: FAMOTIDINE 20 MG/2 ML VIAL IV ONE (14:37)
[2024-11-30 14:47] LABS: Absolute Basophils 0.1 K/uL (0-0.5); Absolute Eosinophils 0.2 K/uL (0-0.5); Absolute Lymphocytes (CBC) 2.4 K/uL (0.7-4.9); Absolute Monocytes 0.6 K/uL (0.1-1.3); Absolute Neutrophil 7.3 K/uL (1.8-8.0); Basophils % 0.7 % (0-1.3); Eosinophils % 1.6 % (0-4.4); Hematocrit 35.3 % (36.0-45.0); Hemoglobin 11.3 g/dL (12.0-15.0); Lymphocytes % 22.6 % (15.3-44.8); MCH 22.9 pg (27.0-35.0); MCV 71.5 fL (80-100); MPV 8.8 fL (7.6-11.3); Monocytes % 5.4 % (3.3-12.3); Neutrophils % 69.7 % (41.7-73.7); Nucleated Red Blood Cells % 0.2 % (0-0); Platelets 307 thou/uL (152-406); RBC Red Blood Cell Count 4.94 M/uL (3.86-4.86); Red Cell Distribution Width 20.1 % (12.1-15.2)
[2024-11-30 14:59] LABS: Specific Gravity 1.009 (1.005-1.030)
[2024-11-30 15:00] LABS: Specific Gravity 1.009 (1.005-1.030); Sqamous Epithelial <5 /HPF (None Seen); Urine Bacteria <20 /HPF (<20); Urine Bilirubin NEGATIVE (Negative); Urine Blood Trace (Negative); Urine Clarity Extremely Turbid (Clear); Urine Color Light-Yellow (Yellow); Urine Crystals Unidentified Few /HPF (None Seen); Urine Culture Reflex Order REFLEXED; Urine Glucose NEGATIVE (Negative); Urine Ketones NEGATIVE (Negative); Urine Microscopic Reflex YN ORDER UMIC; Urine Nitrite NEGATIVE (Negative); Urine Protein NEGATIVE (Negative); Urine RBC >50 /HPF (None Seen); Urine Urobilinogen Normal (Normal); Urine WBC >50 /HPF (<5)
[2024-11-30 15:15] LABS: Anisocytosis 1+; Blood Morphology Comment NOTED (NOT SEEN); Platelet Estimate ADEQ; Poikilocytosis 1+; White Blood Cell Scan OK (OK)
[2024-11-30] MEDS ORDERED: NA CHLORIDE 0.9% 100 ML ONE (16:07)
[2024-11-30] MEDS ORDERED: Meropenem 1000 MG/VIAL IV ONE (16:07)
[2024-11-30 16:10] LABS: Albumin 3.3 g/dL (3.4-5.0); Albumin/Globulin Ratio 0.8 (1.1-1.8); Anion Gap 10.9 mEq/L (5.0-15.0); Bilirubin Total 0.2 mg/dL (0.2-1.0); Globulin 4.1 g/dL (2.3-3.5); Potassium 3.9 mEq/L (3.5-5.1); Protein, Total 7.4 g/dL (6.4-8.2)
--- NOTE | 2024-11-30 16:16 | RAD REPORT ---
EXAMINATION: CT Abdomen Pelvis W Contrast CLINICAL INDICATION: Female, 44 years old. ABD PAIN TECHNIQUE: CT abdomen and pelvis was performed, after the administration of IV contrast, [facility]. Axial, sagittal and coronal reconstructions were obtained. One or more of the following dose reduction techniques were used: Automated exposure control, adjustment of the mA and k V according to patient size, and iterative reconstruction. Unless otherwise specified, incidental findings do not require dedicated imaging follow-up. COMPARISON: No prior exam. FINDINGS: LOWER CHEST: The visualized lung bases are clear. LIVER: Normal in size and contour. No focal lesion. BILIARY SYSTEM: No suspicious abnormalities. SPLEEN: Normal size. No focal lesion. PANCREAS: No mass, ductal dilation, or alvaro-pancreatic fluid. ADRENALS: Normal; no mass. KIDNEYS: Normal size and contour. No hydronephrosis. URINARY BLADDER: Unremarkable. GASTROINTESTINAL TRACT: Large diverticulum projecting laterally from the cecal wall versus the termin al ileum, containing stool with some internal mineralization inferiorly, measuring 6.3 x 6.3 cm. No surrounding inflammatory changes. No evidence of free air, significant intra-abdominal free fluid, stanislaw wel obstruction or abscess. APPENDIX: Normal appendix. LYMPH NODES: No lymphadenopathy. MUSCULOSKELETAL: No acute or suspicious osseous abnormality. ADDITIONAL FINDINGS: None. IMPRESSION: No acute abnormalities seen in the abdomen or pelvis. Large diverticulum arising from the cecal wall or terminal ileum, with no inflammatory changes is inc identally noted.
[2024-11-30] MEDS ORDERED: AZITHROMYCIN 250 MG TAB ONE (16:50)
[2024-11-30] MEDS ORDERED: NYSTATIN 100MU/GM CREAM 15GM TOP ONE (16:51)
--- NOTE | 2024-11-30 17:01 | EDPHYS ---
Physician Documentation [facility] Name: Fela De Leon Age: 44 yrs Sex: Female : 1980 Arrival Date: 11/30/2024 Time: 11:32 Bed 17 Private MD: ED Physician Leonides Smalls HPI: 11/30 16:42 This 44 yrs old Female presents to ER via EMS with complaints of Abdominal luc Pain. 16:42 The patient's rash thought to be caused by Dermatitis. The rash is located on the right luc leg and left leg. The rash can be described as confluent, erythematous, raised. Onset: The symptoms/episode began/occurred 5 day(s) ago. Associated signs and symptoms: Pertinent positives: nausea. Severity of symptoms: At their worst the symptoms were moderate in the emergency department the symptoms are unchanged. 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 ROS: 16:49 Constitutional: Negative for fever, chills, and weight loss, Eyes: Negative for injury, luc pain, redness, and discharge, ENT: Negative for injury, pain, and discharge, Neck: Negative for injury, pain, and swelling, Cardiovascular: Negative for chest pain, palpitations, and edema, Back: Negative for injury and pain, : Negative for injury, bleeding, discharge, and swelling, Neuro: Negative for headache, weakness, numbness, tingling, and seizure, Psych: Negative for depression, anxiety, suicide ideation, homicidal ideation, and hallucinations, Allergy/Immunology: Negative for hives, rash, and allergies, Endocrine: Negative for neck swelling, polydipsia, polyuria, polyphagia, and marked weight changes, Hematologic/Lymphatic: Negative for swollen nodes, abnormal bleeding, and unusual bruising, 16:49 Respiratory: Positive for cough, shortness of breath, wheezing, expiratory, 16:49 Abdomen/GI: Positive for abdominal cramps, abdominal distension, 16:49 MS/extremity: Positive for erythema, pain, tenderness, of the right leg and left leg, 16:49 Neuro: Positive for gait disturbance, weakness, Exam: 16:50 Constitutional: This is a well developed, well nourished patient who is awake, alert, luc and in no acute distress. Head/Face: Normocephalic, atraumatic. Eyes: Pupils equal round and reactive to light, extra-ocular motions intact. Lids and lashes normal. Conjunctiva and sclera are non-icteric and not injected. Cornea within normal limits. Periorbital areas with no swelling, redness, or edema. ENT: Nares patent. No nasal discharge, no septal abnormalities noted. Tympanic membranes are normal and external auditory canals are clear. Oropharynx with no redness, swelling, or masses, exudates, or evidence of obstruction, uvula midline. Mucous membranes moist. Neck: Trachea midline, no thyromegaly or masses palpated, and no cervical lymphadenopathy. Supple, full range of motion without nuchal rigidity, or vertebral point tenderness. No Meningismus. Chest/axilla: Normal chest wall appearance and motion. Nontender with no deformity. No lesions are appreciated. Cardiovascular: Regular rate and rhythm with a normal S1 and S2. No gallops, murmurs, or rubs. Normal PMI, no JVD. No pulse deficits. Back: No spinal tenderness. No costovertebral tenderness. Full range of motion. Neuro: Awake and alert, GCS 15, oriented to person, place, time, and situation. Cranial nerves II-XII grossly intact. Motor strength 5/5 in all extremities. Sensory grossly intact. Cerebellar exam normal. Normal gait. Psych: Awake, alert, with orientation to person, place and time. Behavior, mood, and affect are within normal limits. 16:50 Respiratory: the patient does not display signs of respiratory distress, Respirations: no acute changes, Breath sounds: decreased breath sounds, that are moderate, are scattered, rhonchi, that are mild, Respiratory rate: 16 Vital Signs: 12:10 BP 112 / 65; Pulse 80; Resp 16; Temp 98.2(O); Pulse Ox 100% on R/A; Weight 123.83 kg jb4 (R); Height 5 ft. 4 in. ; Pain 06/01; 15:30 BP 134 / 78; Pulse 87; Resp 16; Pulse Ox 100% on R/A; jb4 15:47 BP 123 / 71; Pulse 72; Resp 16; Pulse Ox 98% on R/A; jb4 16:45 BP 163 / 89; Pulse 85; Resp 16; Pulse Ox 100% on R/A; jb4 19:05 BP 156 / 83; Pulse 83; Resp 16; Pulse Ox 99% on R/A; jb4 12:10 Body Mass Index 46.86 (123.83 kg, 162.56 cm) [facility] 12:10 Pain Scale: Adult jb4 MDM: 11:42 Medical Screening Exam initiated [facility] 11/30 11:44 Order name: CBC with Diff; Complete Time: 15:39 [facility] 11/30 11:44 Order name: CMP; Complete Time: 16:26 [facility] 11/30 11:44 Order name: Lipase; Complete Time: 16:26 [facility] 11/30 11:44 Order name: Test, Urine; Complete Time: 15:12 [facility] 11/30 11:44 Order name: Urinalysis w/ reflexes; Complete Time: 15:39 [facility] 11/30 15:16 Order name: CBC Smear Scan; Complete Time: 15:39 [facility] 11/30 15:20 Order name: Urine Culture [facility] 11/30 11:44 Order name: CT Abd/Pelvis - IV Contrast Only; Complete Time: 16:26 [facility] 11/30 11:44 Order name: IV Saline Lock; Complete Time: 14:48 [facility] 11/30 11:44 Order name: Labs collected and sent; Complete Time: 14:48 [facility] 11/30 14:48 Order name: Labs - recollect needed: green ; Complete Time: 15:38 bc6 Administered Medications: 14:48 Drug: morphine IVP or IV 4 mg IVP once over 4 mins Route: IVP; Infused Over: 4 mins; jb4 Site: right upper arm; 14:49 Drug: Ondansetron IVP 4 mg IVP once; over 2 minutes Route: IVP; Site: right upper arm; jb4 14:49 Drug: NS 0.9% IV 1000 ml IV at 1 bolus Per protocol; to be given as a bolus over 60 jb4 minutes Route: IV; Rate: 1 bolus; Site: right upper arm; 14:50 Drug: Famotidine IVP 20 mg IVP once; dilute with 10 mL 0.9% NaCl; give over 2 minutes jb4 Route: IVP; Site: right upper arm; 16:22 Drug: Meropenem IV 1 grams IV at per protocol once; (mix in NS 100 mL) Route: IV; Rate: jb4 per protocol; Site: right upper arm; 16:52 Follow up: Response: No adverse reaction; IV Status: Completed infusion; IV Intake: jb4 100ml 16:59 Drug: AZITHromycin PO 1 grams PO once Route: PO; jb4 20:03 Follow up: Response: No adverse reaction jb4 16:59 Drug: morphine IVP or IV 4 mg IVP once over 4 mins Route: IVP; Infused Over: 4 mins; jb4 Site: right upper arm; 20:03 Follow up: Response: No adverse reaction; Marked relief of symptoms; Pain is decreased jb4 17:04 Drug: Nystatin-Triamcinolone Topical Cream 1 application Topical once {Note: ll1 groin/vaginal area.} Route: Topical; Site: affected area; Disposition Summary: 11/30/24 17:00 Hospitalization Ordered Notes: Hospitalization Status: Observation luc Provider: Christopher Krishnan cha Location: Telemetry/MedSurg (observation) luc Condition: Fair luc Problem: new luc Symptoms: have improved luc Bed/Room Type: Standard luc Room Assignment: 220(11/30/24 17:50) bc6 Diagnosis - Abdominal pain, Generalized luc - Obesity, unspecified luc - Erysipelas luc - Acute cystitis without hematuria luc Forms: - Medication Reconciliation Form luc - SBAR form luc - Leadership Thank You Letter luc Signatures: Dispatcher [employer] Leonides Dukes MD MD cha Bryson, James RN RN jb4 Remigio Luo RN RN ll1 Leticia Okeefe bc6 Corrections: (The following items were deleted from the chart) 11:44 11:44 Abdomen Pelvis W Con+CT.RAD.BRZ ordered. EDMS EDMS 17:50 17:00 [facility] bc6
--- NOTE | 2024-11-30 17:01 | ER ---
Nurse's Notes [facility] Name: Fela De Leon Age: 44 yrs Sex: Female : 1980 Arrival Date: 11/30/2024 Time: 11:32 Bed 17 Private MD: Diagnosis: Abdominal pain, Generalized;Obesity, unspecified;Erysipelas;Acute cystitis without hematuria Presentation: 11/30 12:10 Chief complaint: EMS states: Pt called reporting spotting that started at 0400, a yeast jb4 infection like rash between her legs, and lower abdominal pain that started around 2000 last night. BGL was 158. Reports difficulty sitting due to pain from the rash. Coronavirus screen: At this time, the client does not indicate any symptoms associated with coronavirus-19. Ebola Screen: No symptoms or risks identified at this time. Initial Sepsis Screen: Does the patient meet any 2 criteria? No. Patient's initial sepsis screen is negative. Does the patient have a suspected source of infection? No. Patient's initial sepsis screen is negative. Risk Assessment: Do you want to hurt yourself or someone else? Patient reports no desire to harm self or others. Onset of symptoms was November 29, 2024. Transition of care: patient was not received from another setting of care. 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 Screenin:02 [facility] ED Fall Risk Assessment (Adult) History of falling in the last 3 months, jb4 including since admission No falls in past 3 months (0 pts) Confusion or Disorientation No (0 pts) Intoxicated or Sedated No (0 pts) Impaired Gait No (0 pts) Mobility Assist Device Used No (0 pt) Altered Elimination No (0 pt) Score/Fall Risk Level 0 - 2 = Low Risk Oriented to surroundings, Maintained a safe environment. Abuse screen: Denies threats or abuse. Nutritional screening: No deficits noted. Tuberculosis screening: No symptoms or risk factors identified. Assessment: 14:00 Reassessment: Patient appears in no apparent distress at this time. Patient and/or jb4 family updated on plan of care and expected duration. Pain level reassessed. Patient is alert, oriented x 3, equal unlabored respirations, skin warm/dry/pink. 15:00 Reassessment: Patient appears in no apparent distress at this time. Patient and/or jb4 family updated on plan of care and expected duration. Pain level reassessed. Patient is alert, oriented x 3, equal unlabored respirations, skin warm/dry/pink. 16:00 Reassessment: Patient appears in no apparent distress at this time. Patient and/or jb4 family updated on plan of care and expected duration. Pain level reassessed. Patient is alert, oriented x 3, equal unlabored respirations, skin warm/dry/pink. 17:00 Reassessment: Patient appears in no apparent distress at this time. Patient and/or jb4 family updated on plan of care and expected duration. Pain level reassessed. Patient is alert, oriented x 3, equal unlabored respirations, skin warm/dry/pink. 19:05 Reassessment: Patient appears in no apparent distress at this time. Patient and/or jb4 family updated on plan of care and expected duration. Pain level reassessed. Patient is alert, oriented x 3, equal unlabored respirations, skin warm/dry/pink. Vital Signs: 12:10 BP 112 / 65; Pulse 80; Resp 16; Temp 98.2(O); Pulse Ox 100% on R/A; Weight 123.83 kg jb4 (R); Height 5 ft. 4 in. ; Pain 10/10; 15:30 BP 134 / 78; Pulse 87; Resp 16; Pulse Ox 100% on R/A; jb4 15:47 BP 123 / 71; Pulse 72; Resp 16; Pulse Ox 98% on R/A; jb4 16:45 BP 163 / 89; Pulse 85; Resp 16; Pulse Ox 100% on R/A; jb4 19:05 BP 156 / 83; Pulse 83; Resp 16; Pulse Ox 99% on R/A; jb4 12:10 Body Mass Index 46.86 (123.83 kg, 162.56 cm) jb4 12:10 Pain Scale: Adult jb4 ED Course: 11:42 Patient arrived in ED. luc 11:43 Leonides Smalls MD is Attending Physician. luc 11:54 Arm band placed on Patient placed in an exam room, on a stretcher. ll1 12:12 Triage completed. jb4 14:23 Missed attempt(s): 22 gauge in right forearm. upper arm. Bleeding controlled, band aid jb4 applied, catheter tip intact. 14:33 Initial lab(s) drawn, by va, sent to lab. Inserted saline lock: 22 gauge in right upper ll1 arm, using aseptic technique. Blood collected. Flushed with 10 mL NS. 15:02 CT Abd/Pelvis - IV Contrast Only In Process Unspecified. EDMS 16:55 Christopher Krishnan MD is Hospitalizing Provider. [facility] 19:04 Felix Oliver, RN is Primary Nurse. jb4 20:02 Patient has correct armband on for positive identification. Bed in low position. Call jb4 light in reach. Side rails up X 1. Provided Education on: need for admit. 20:02 No provider procedures requiring assistance completed. Patient admitted, IV remains in jb4 place. Administered Medications: 14:48 Drug: morphine IVP or IV 4 mg IVP once over 4 mins Route: IVP; Infused Over: 4 mins; jb4 Site: right upper arm; 14:49 Drug: Ondansetron IVP 4 mg IVP once; over 2 minutes Route: IVP; Site: right upper arm; jb4 14:49 Drug: NS 0.9% IV 1000 ml IV at 1 bolus Per protocol; to be given as a bolus over 60 jb4 minutes Route: IV; Rate: 1 bolus; Site: right upper arm; 14:50 Drug: Famotidine IVP 20 mg IVP once; dilute with 10 mL 0.9% NaCl; give over 2 minutes jb4 Route: IVP; Site: right upper arm; 16:22 Drug: Meropenem IV 1 grams IV at per protocol once; (mix in NS 100 mL) Route: IV; Rate: jb4 per protocol; Site: right upper arm; 16:52 Follow up: Response: No adverse reaction; IV Status: Completed infusion; IV Intake: jb4 100ml 16:59 Drug: AZITHromycin PO 1 grams PO once Route: PO; jb4 20:03 Follow up: Response: No adverse reaction jb4 16:59 Drug: morphine IVP or IV 4 mg IVP once over 4 mins Route: IVP; Infused Over: 4 mins; jb4 Site: right upper arm; 20:03 Follow up: Response: No adverse reaction; Marked relief of symptoms; Pain is decreased jb4 17:04 Drug: Nystatin-Triamcinolone Topical Cream 1 application Topical once {Note: ll1 groin/vaginal area.} Route: Topical; Site: affected area; Intake: 16:52 IV: 100ml; Total: 100ml. jb4 Outcome: 17:00 Decision to Hospitalize by Provider. luc 20:02 Admitted to Med/surg accompanied by nurse, via stretcher, room 220, with chart, jb4 20:02 Condition: stable 20:02 Discharge instructions given to patient, Instructed on the need for admit, Demonstrated understanding of instructions, 20:04 Patient left the ED. jb4 Signatures: Dispatcher [employer] Leonides Dukes MD MD cha Bryson, James, RN RN jb4 Remigio Luo RN RN ll1
--- NOTE | 2024-11-30 18:00 | P.HP ---
Certification for Inpatient Patient admitted to: Inpatient With expected LOS: >2 Midnights Patient will require the following post-hospital care: None Practitioner: I am a practitioner with admitting privileges, knowledge of patient current condition, hospital course, and medical plan of care. Services: Services provided to patient in accordance with Admission requirements found in Title 42 Section 412.3 of the Code of Federal Regulations Patient History Date of Service: 11/30/24 Reason for admission: UTI, rash History of Present Illness: 44-year-old female with history of COPD, seizure disorder, hypertension, chronic diastolic congestive heart failure, chronic pain presents the emergency department chief complaint of abdominal pain, urinary symptoms and rash. She reports the symptoms have been going on for the last 2 to 3 days and worsening in nature. Patient was evaluated in the emergency department her labs were significant for a white blood cell count of 10.5 hemoglobin 11.3 hematocrit 35.3 glucose 123 UA with 500 leuk esterase greater than 50 red blood cells, greater than [address] abdomen pelvis was performed with IV contrast which showed no acute abnormality seen in the abdomen pelvis, large diverticulum arising from the cecal wall or terminal ileum with no inflammatory changes is incidentally noted. Patient has a large rash in her groin/pelvic area extending out to the proximal thighs which is erythematous with clear demarcation. PT processed admit patient for UTI, abdominal pain, rash - Past Medical/Surgical History -: CHFdiastolic -: COPD/asthma -: Anxiety/depression -: Insomnia -: Hypertension - Social History Smoking Status: Current every day smoker Alcohol use: No CD- Drugs: No Caffeine use: Yes Place of Residence: Home Review of Systems 10-point ROS is otherwise unremarkable Gastrointestinal: Nausea, Abdominal Pain Genitourinary: Dysuria Physical Examination - Physical Exam General: Alert, In no apparent distress, Oriented x3 HEENT: Atraumatic, PERRLA, EOMI Neck: Supple, 2+ carotid pulse no bruit, No LAD, Without JVD or thyroid abnormality Respiratory: Clear to auscultation bilaterally, Normal air movement Cardiovascular: Regular rate/rhythm, Normal S1 S2 Gastrointestinal: Normal bowel sounds, Tenderness (Lower abdominal tenderness) Musculoskeletal: No tenderness Integumentary: No rashes, Rash(es) (Erythematous well-demarcated rash to the pelvic/groin area) Neurological: Normal speech, Normal strength at 5/5 x4 extr - Studies Laboratory Data (last 24 hrs) 11/30/24 11/30/24 Unknown 14:28 WBC 10.50 Hgb 11.3 L Hct 35.3 L Plt Count 307 Sodium 136 Potassium 3.9 BUN 6 L Creatinine 0.77 Glucose 123 H Total Bilirubin 0.2 AST 12 L ALT 21 Alkaline Phosphatase 99 Lipase 16 Assessment and Plan - Plan Assessment: UTI Pelvic/abdominal rash-erysipelas versus fungal infection Seizure disorder Anxiety/depression Insomnia Hyperlipidemia Plan: UTI Pelvic/abdominal rash-erysipelas versus fungal infection Continue Rocephin/vancomycin Also add nystatin powder As needed pain medications Urine culture ordered and pending Seizure disorder Anxiety/depression Insomnia Hyperlipidemia Patient is on many medications at very high doses Verify medications, restart as appropriate DVT PPX: Lovenox Code status: Full Discharge Plan: Home Plan to discharge in: 48 Hours - Advance Directives Does patient have a Living Will: No Does patient have a Durable POA for Healthcare: No - Code Status/Comfort Care Code Status Assessed: Yes (Full code) Critical Care: No Time Spent Managing Pts Care (In Minutes): 65
[2024-11-30 19:20] VITALS: BMI 46.8
[2024-11-30] MEDS: VANCOMYCIN 1 GM in NA CHLORIDE 0.9% 250 ML IVPB SCH (19:28)
[2024-11-30] MEDS ORDERED: ZOLPIDEM TARTRATE 10 MG TABLET PO PRN (19:28)
[2024-11-30] MEDS: ALBUTEROL 2.5 MG/3 ML NEB SOL NEB SCH (19:28)
[2024-11-30] MEDS ORDERED: ONDANSETRON 4 MG/2 ML VIAL IV PRN (19:28)
[2024-11-30 20:33] VITALS: O2SAT 99
[2024-11-30] MEDS: AZTREONAM 1 GM in NA CHLORIDE 0.9% 100 ML IV SCH (20:40)
[2024-11-30] MEDS: MORPHINE 2 MG/ML SYR IV PRN (20:40)
[2024-11-30] MEDS: NA CHLORIDE 0.9% 1,000 ML IV SCH (20:40)
[2024-11-30] MEDS: NYSTATIN PWDR 100000 UNIT/GM TOP SCH (21:00)
[2024-11-30] MEDS: VANCOMYCIN 1 GM/VIAL ONE (22:01)
[2024-11-30] MEDS: NA CHLORIDE 0.9% 500 ML ONE (22:02)
[2024-11-30] MEDS: CLONIDINE HCL 0.3 MG TAB PO SCH (22:45)
[2024-11-30] MEDS: carBAMazepine 200 MG TAB PO SCH (22:45)
[2024-11-30] MEDS: ATORVASTATIN 80 MG TAB PO SCH (22:45)
[2024-11-30] MEDS: TIZANIDINE 4 MG TABLET PO SCH (22:46)
[2024-11-30] MEDS: QUETIAPINE 100MG TAB PO SCH (22:46)
[2024-11-30] MEDS: TRAZODONE 150 MG TAB PO SCH (22:47)
[2024-11-30] MEDS: GABAPENTIN 400 MG CAP PO SCH (22:47)
[2024-11-30] MEDS: VANCOMYCIN 2 GM in NA CHLORIDE 0.9% 500 ML IVPB SCH (22:51)
[2024-11-30] MEDS: HYDROCODONE/APAP 5/325 MG TAB PO PRN (23:28)
[2024-12-01] MEDS: clonazePAM 1 MG TAB PO PRN (00:58)
[2024-12-01] MEDS: NICOTINE 14 MG/PAT TD ONE (04:22)
[2024-12-01] MEDS: NICOTINE 14 MG/PAT TD SCH (04:26)
[2024-12-01 05:20] LABS: Absolute Eosinophils 0.1 K/uL (0-0.5); Absolute Lymphocytes (CBC) 2.1 K/uL (0.7-4.9); Absolute Monocytes 0.4 K/uL (0.1-1.3); Absolute Neutrophil 4.1 K/uL (1.8-8.0); Basophils % 0.6 % (0-1.3); Eosinophils % 1.9 % (0-4.4); Hematocrit 31.7 % (36.0-45.0); Hemoglobin 10.1 g/dL (12.0-15.0); MCH 22.8 pg (27.0-35.0); MCHC 31.8 g/dL (32.0-36.0); MCV 71.6 fL (80-100); MPV 8.5 fL (7.6-11.3); Neutrophils % 60.5 % (41.7-73.7); Nucleated Red Blood Cells % 0.5 % (0-0); Platelets 253 thou/uL (152-406); RBC Red Blood Cell Count 4.43 M/uL (3.86-4.86)
[2024-12-01 05:44] LABS: ALT/SGPT 17 U/L (13-56); Albumin 3.1 g/dL (3.4-5.0); Albumin/Globulin Ratio 0.8 (1.1-1.8); Alkaline Phosphatase 94 U/L (45-117); Anion Gap 9.9 mEq/L (5.0-15.0); BUN Blood Urea Nitrogen 5 mg/dL (7-18); Bicarbonate 24 mEq/L (21-32); Bilirubin Total 0.2 mg/dL (0.2-1.0); Globulin 3.8 g/dL (2.3-3.5); Glomerular Filtration Rate 92 ml/min (=/>90); Glucose Level 145 mg/dL (74-106); Potassium 3.9 mEq/L (3.5-5.1); Protein, Total 6.9 g/dL (6.4-8.2); Sodium Level 138 mEq/L (136-145)
[2024-12-01 05:50] LABS: AST/SGOT < 10 U/L (15-37)
[2024-12-01] MEDS ORDERED: clonazePAM 1 MG TAB PO PRN (06:17)
[2024-12-01] MEDS: MORPHINE 2 MG/ML SYR IM ONE (06:39)
[2024-12-01] MEDS: DIPHENHYDRAMINE 25 MG TAB/CAP PO ONE (06:39)
[2024-12-01] MEDS ORDERED: CEFTRIAXONE 1,000 MG in NA CHLORIDE 0.9% 50 ML IVPB SCH (09:00)
[2024-12-01] MEDS: HOME MED 1 EA UNK (Fluticasone/Umeclidin/Vilanter [Trelegy Ellipta 200-62.5-25] Blst.W.Dev IH SCH (09:00)
[2024-12-01] MEDS: ENOXAPARIN 40 MG/0.4 ML SQ SCH (09:03)
[2024-12-01] MEDS: CLONIDINE HCL 0.3 MG TAB PO SCH ×3 (09:03→21:34)
[2024-12-01] MEDS: POTASSIUM CL SA 10 MEQ TAB PO ONE (09:03)
[2024-12-01] MEDS: VENLAFAXINE HCL XR 75 MG CAP PO SCH (09:03)
[2024-12-01] MEDS: MONTELUKAST 10 MG TAB PO SCH (09:04)
[2024-12-01] MEDS: TOPIRAMATE 100 MG TAB PO SCH (09:04)
[2024-12-01] MEDS ORDERED: DIPHENHYDRAMINE 25 MG TAB/CAP PO PRN (09:39)
--- NOTE | 2024-12-01 09:41 | P.PN ---
Date of Service: 12/01/24 Subjective: No acute events overnight white blood cell count downtrending No fevers ROS: 10 point ROS as noted above, otherwise negative Physical exam GEN: Alert, oriented, NAD HEENT: Normal conjunctiva, sclera anicteric CV: Regular rate and rhythm, no edema Pulm: Nonlabored respirations on room air ABD: Soft, nontender, nondistended MSK: No joint tenderness Integumentary: Erythematous well-demarcated rash to the proximal thighs, pelvic area Neuro: Normal speech, normal affect Vitals reviewed Assessment: UTI Pelvic/abdominal rash-erysipelas versus fungal infection Seizure disorder Anxiety/depression Insomnia Hyperlipidemia Plan: UTI Pelvic/abdominal rash-erysipelas versus fungal infection Continue aztreonam/vancomycin Also add nystatin powder As needed pain medications Urine culture ordered and pending Seizure disorder Anxiety/depression Insomnia Hyperlipidemia Patient is on many medications at very high doses Medications restarted Patient will need to take her own Trelegy DVT PPX: Lovenox Code status: Full Discharge Plan: Home Plan to discharge in: 48 Hours Time Spent Managing Pts Care (In Minutes): 35
[2024-12-01] MEDS: SUMATRIPTAN SUCC 6MG/0.5ML VIAL SQ ONE (10:23)
[2024-12-01] MEDS: VANCOMYCIN 2 GM in NA CHLORIDE 0.9% 500 ML IVPB SCH (18:11)
[2024-12-01] MEDS: ATORVASTATIN 80 MG TAB PO SCH (21:00)
[2024-12-01] MEDS: MIRTAZAPINE 15 MG TAB PO SCH (21:32)
[2024-12-02 07:57] LABS: Absolute Basophils 0.1 K/uL (0-0.5); Absolute Eosinophils 0.1 K/uL (0-0.5); Absolute Lymphocytes (CBC) 1.9 K/uL (0.7-4.9); Absolute Monocytes 0.4 K/uL (0.1-1.3); Absolute Neutrophil 3.4 K/uL (1.8-8.0); Basophils % 0.9 % (0-1.3); Eosinophils % 2.3 % (0-4.4); Hematocrit 31.3 % (36.0-45.0); Hemoglobin 9.9 g/dL (12.0-15.0); Lymphocytes % 31.9 % (15.3-44.8); MCH 22.9 pg (27.0-35.0); MCHC 31.7 g/dL (32.0-36.0); MCV 72.2 fL (80-100); MPV 8.4 fL (7.6-11.3); Monocytes % 6.8 % (3.3-12.3); Neutrophils % 58.1 % (41.7-73.7); Nucleated Red Blood Cells % 0.4 % (0-0); Platelets 278 thou/uL (152-406); RBC Red Blood Cell Count 4.34 M/uL (3.86-4.86); Red Cell Distribution Width 20.4 % (12.1-15.2)
[2024-12-02 08:17] LABS: Albumin 3.2 g/dL (3.4-5.0); Albumin/Globulin Ratio 0.8 (1.1-1.8); Bilirubin Total 0.2 mg/dL (0.2-1.0); Protein, Total 7.2 g/dL (6.4-8.2)
[2024-12-02 12:54] VITALS: BP 129/64; TEMP 98.1
--- NOTE | 2024-12-02 13:12 | P.DS ---
Admission Date: 11/30/24 Discharge Date: 12/02/24 Disposition: ROUTINE DISCHARGE Discharge Condition: FAIR Reason for Admission: UTI, rash Brief History of Present Illness: Diagnosis UTI Pelvic/abdominal rash-erysipelas versus fungal infection Seizure disorder Anxiety/depression Insomnia Hyperlipidemia HPI 11/30/2024 44-year-old female with history of COPD, seizure disorder, hypertension, chronic diastolic congestive heart failure, chronic pain presents the emergency department chief complaint of abdominal pain, urinary symptoms and rash. She reports the symptoms have been going on for the last 2 to 3 days and worsening in nature. Patient was evaluated in the emergency department her labs were significant for a white blood cell count of 10.5 hemoglobin 11.3 hematocrit 35.3 glucose 123 UA with 500 leuk esterase greater than 50 red blood cells, greater than [address] abdomen pelvis was performed with IV contrast which showed no acute abnormality seen in the abdomen pelvis, large diverticulum arising from the cecal wall or terminal ileum with no inflammatory changes is incidentally noted. Patient has a large rash in her groin/pelvic area extending out to the proximal thighs which is erythematous with clear demarcation. PT processed admit patient for UTI, abdominal pain, rash Hospital Course: Fela was admitted and treated for urinary tract infection and pelvic abdominal rash. White blood cell remained within normal limits, hemodynamically stable, afebrile, ambulating around the hospital. She is in no acute distress and feeling well enough to discharge. I have educated Fela that we have not received the urine culture result yet but can prescribe Augmentin and she can follow up with her PCP for a repeat UA. Education provided to follow up with her PCP for a repeat urinalysis, urinary culture remains pending. Augmentin, fluconazole, and miconazole prescribed. Fela reports nystatin powder causes burning and she is allergic to it. Physical Exam General: Alert and Oriented x3, NAD, afebrile HEENT: Atraumatic, PERRLA, EOMI Neck: Supple, 2+ carotid pulse no bruit, No LAD, Without JVD or thyroid abnormality Respiratory: Clear BBS, Normal air movement, on RA Cardiovascular: Mild tachycardia, Normal S1 S2 Gastrointestinal: Normal bowel sounds, Tenderness (Lower abdominal tenderness) Musculoskeletal: No tenderness Integumentary: No rashes, Rash(es) (Erythematous well-demarcated rash to the pelvic/groin area) Neurological: Normal speech, Normal strength at 5/5 x4 extr Vital Signs/Physical Exam: Temp Pulse Resp BP Pulse Ox 98.1 F 91 H 18 129/64 95 12/02/24 12:00 12/02/24 12:00 12/02/24 12:00 12/02/24 12:00 12/02/24 12:00 Laboratory Data at Discharge: WBC 5.80 thou/uL (4.3-10.9) 12/02/24 07:31 Hgb 9.9 g/dL (12.0-15.0) L 12/02/24 07:31 Hct 31.3 % (36.0-45.0) L 12/02/24 07:31 Plt Count 278 thou/uL (152-406) 12/02/24 07:31 Sodium 139 mEq/L (136-145) 12/02/24 07:31 Potassium 4.0 mEq/L (3.5-5.1) 12/02/24 07:31 BUN 6 mg/dL (7-18) L 12/02/24 07:31 Creatinine 0.66 mg/dL (0.55-1.02) 12/02/24 07:31 Glucose 113 mg/dL (74-106) H 12/02/24 07:31 Total Bilirubin 0.2 mg/dL (0.2-1.0) 12/02/24 07:31 AST 13 U/L (15-37) L 12/02/24 07:31 ALT 22 U/L (13-56) 12/02/24 07:31 Alkaline Phosphatase 98 U/L (45-117) 12/02/24 07:31 Lipase 16 U/L (13-75) 11/30/24 Unknown Home Medications: Atorvastatin Calcium [Lipitor] 80 mg PO BEDTIME 11/30/24 Gabapentin 800 mg PO BID 11/30/24 Quetiapine Fumarate [Seroquel] 800 mg PO BEDTIME 11/30/24 Tizanidine [Zanaflex*] 4 mg PO QID 11/30/24 Trazodone [Desyrel*] 300 mg PO BEDTIME 11/30/24 Zolpidem Tartrate [Ambien*] 10 mg PO BEDTIME PRN PRN 11/30/24 cloNIDine HCL [Catapres*] 0.3 mg PO DAILY 11/30/24 cloNIDine HCL [Catapres*] 0.3 mg PO NOON 11/30/24 cloNIDine HCL [Catapres*] 0.6 mg PO BEDTIME 11/30/24 clonazePAM [Klonopin*] 1 mg PO TIDP PRN 11/30/24 Cetirizine HCl [Allergy] 10 mg PO DAILY 12/01/24 Fluticasone/Umeclidin/Vilanter [Trelegy Ellipta 200-62.5-25] 1 each IH DAILY 12/01/24 Mirtazapine [Remeron*] 15 mg PO BEDTIME 12/01/24 Montelukast [Singulair*] 10 mg PO DAILY 12/01/24 Topiramate [Topamax*] 100 mg PO BID 12/01/24 Venlafaxine HCl [Effexor Xr] 3 cap PO DAILY 12/01/24 carBAMazepine [Carbatrol] 300 mg PO Q12H 12/01/24 Amox/Clavulanate [Augmentin 875-125 Tab] 1 each PO BID 5 Days #10 tab 12/02/24 Fluconazole 100 mg PO DAILY 5 Days #5 tab 12/02/24 Miconazole Cream [Monistat-Derm*] 4 gm TP DAILY 5 Days #2 tube 12/02/24 New Medications: Amox/Clavulanate [Augmentin 875-125 Tab] 1 each PO BID 5 Days #10 tab Fluconazole 100 mg PO DAILY 5 Days #5 tab Miconazole Cream [Monistat-Derm*] 4 gm TP DAILY 5 Days #2 tube Physician Discharge Instructions: 1. Please call and schedule a follow-up appointment with your PCP in 3-5 days - Please follow-up with your PCP for medication refills/adjustments -Repeat urinalysis at your PCPs office, culture has not resulted yet for 12/02/24 - PCP will follow-up on abdominal/pelvic rash, treating with fungal medications, clean with soap and water allowed to dry completely prior to applying miconazole cream. 2. Continue regular diet 3. No activity restrictions 4. Return to the ED if symptoms worsen New medications Augmentin 875 mg twice daily x 5 days Fluconazole 100 mg daily x 5 days Miconazole apply cream daily Followup: NONE,NONE [Primary Care Provider] -
== END 2024-12-02 14:33 | disposition home or self-care (01) | DRG 690 ==
LOC: ER 11:32 → ERHOLD 17:45 → 2ND 18:15
PROVIDERS: ADMIT Hospitalist; ATTEND Hospitalist
PROC: 02HV33Z Insertion of Infusion Device into Superior Vena Cava, Percutaneous Approach (ICD-10-PCS; principal; 2024-12-01)
DX: N30.00 Acute cystitis without hematuria (principal); Z68.42 Body mass index [BMI] 45.0-49.9, adult; I50.32 Chronic diastolic (congestive) heart failure; I11.0 Hypertensive heart disease with heart failure; E66.9 Obesity, unspecified; L30.9 Dermatitis, unspecified; F41.9 Anxiety disorder, unspecified; F32.A Depression, unspecified; G47.00 Insomnia, unspecified; E78.5 Hyperlipidemia, unspecified; J44.9 Chronic obstructive pulmonary disease, unspecified; G40.909 Epilepsy, unspecified, not intractable, without status epilepticus; Z88.1 Allergy status to other antibiotic agents; F17.200 Nicotine dependence, unspecified, uncomplicated; Z88.8 Allergy status to other drugs, medicaments and biological substances; Z90.710 Acquired absence of both cervix and uterus
CPT/HCPCS: 36415; 74177; 80053; 81001; 81025; 83690; 85025; 87086; 87088; 94640; 96365; 96375; 99285; J1650; J2185; J2270; J2405; J3030; J3370; J7030; J7040; J7613; Q9967

== ENCOUNTER 2025-05-15 19:24 | Emergency (ER) | payer MEDICAID ==
--- NOTE | 2025-05-15 19:57 | RAD REPORT ---
EXAM: Chest Single View HISTORY: 44 years Female Chest pain;Dyspnea;COPD COMPARISON: 11/18/2024 FINDINGS: LUNGS/PLEURA: The lungs are clear. No pleural effusions or pneumothorax. No pulmonary edema. CARDIAC/MEDIASTINUM: Stable size and configuration. UPPER ABDOMEN: No significant abnormality. BONES: No acute abnormality. LINES/TUBES/OTHER: N/A IMPRESSION: No evidence of acute cardiopulmonary disease.
[2025-05-15 20:28] LABS: Absolute Lymphocytes (CBC) 2.4 K/uL (0.7-4.9); Hematocrit 32.0 % (36.0-45.0); Hemoglobin 10.4 g/dL (12.0-15.0); MCH 23.5 pg (27.0-35.0); MCHC 32.4 g/dL (32.0-36.0); MCV 72.6 fL (80-100); MPV 8.1 fL (7.6-11.3); Nucleated RBC Absolute Count 0.0 (0-0); Nucleated Red Blood Cells % 0.2 % (0-0); RBC Red Blood Cell Count 4.41 M/uL (3.86-4.86); White Blood Count 7.90 thou/uL (4.3-10.9)
[2025-05-15 20:36] LABS: PT Prothrombin Time 14.3 SECONDS (10-13.0); Protime INR 1.27
[2025-05-15 20:56] LABS: Anisocytosis 2+; Blood Morphology Comment NOTED (NOT SEEN); White Blood Cell Scan OK (OK)
[2025-05-15 21:33] LABS: Potassium 3.5 mEq/L (3.5-5.1)
[2025-05-15 21:34] LABS: Anion Gap 12.5 mEq/L (5.0-15.0); BUN Blood Urea Nitrogen 8 mg/dL (7-18); Glucose Level 127 mg/dL (74-106)
[2025-05-15 21:35] LABS: ALT/SGPT 25 U/L (13-56); AST/SGOT 20 U/L (15-37); Alkaline Phosphatase 91 U/L (45-117); Bilirubin Indirect, Calculated ND mg/dL (0.2-0.8)
[2025-05-15 21:36] LABS: Albumin 3.5 g/dL (3.4-5.0); Albumin/Globulin Ratio 0.9 (1.1-1.8); Globulin 3.8 g/dL (2.3-3.5); Magnesium 2.1; NT PRO-BNP 118 pg/mL (<125); Troponin High Sensitivity 20.5 (<58.9)
--- NOTE | 2025-05-15 21:40 | EDPHYS ---
Physician Documentation [facility] Name: Fela De Leon Age: 44 yrs Sex: Female : 1980 Arrival Date: 05/15/2025 Time: 19:24 Bed 5 Private MD: ED Physician Trevon Armenta HPI: 05/15 19:43 This 44 yrs old Female presents to ER via EMS with complaints of shortness of breath, sp3 chest pain. 19:43 44-year-old female with history of seizure history, CHF, COPD, psychiatric history sp3 currently on lithium and Tegretol and Depakote now presents to the ED with recurrent shortness of breath and chest pain. Patient states that she was at the [employer] and was unable to get in and due to that she started having her symptoms. Patient was sleeping in the EMS ride here and currently sleeping until she is awake in for evaluation. She denies any abdominal pain, nausea, vomiting, diarrhea, fever, headache, URI symptoms, syncope, near syncope, rash, bleeding, or any other signs or symptoms on ROS at this time.. Historical: - Allergies: 19:33 Depakote; tb4 19:33 Haldol; tb4 19:33 Bromphenex DM; tb4 19:33 [place] Carbonate; tb4 19:33 Septra; tb4 19:33 Tamiflu; tb4 19:33 Rocephin; tb4 19:33 mometasone furoate (bulk); tb4 21:09 Tegretol; tb4 21:09 Wellbutrin; tb4 21:09 Cipro; tb4 - Home Meds: 19:33 atorvastatin 80 mg oral tablet 1 tab daily [Active]; celecoxib 200 mg Oral capsule 1 tb4 cap daily [Active]; clonazepam 1 mg Oral tablet 2 times per day [Active]; clonidine HCl 0.3 mg Oral tablet every six hours [Active]; mirtazapine 15 mg Oral tablet 1 tab daily [Active]; promethazine 12.5 mg Oral tablet every 12 hrs PRN [Active]; 21:09 cetirizine oral [Active]; tb4 - Immunization history:: Adult Immunizations up to date. - Infectious Disease History:: Denies. - Social history:: Smoking status: Patient denies any tobacco usage or history of. Patient/guardian denies using alcohol, street drugs, IV drugs, tobacco products. ROS: 19:44 Constitutional: Negative for fever, chills, and weight loss, Eyes: Negative for injury, sp3 pain, redness, and discharge, ENT: Negative for injury, pain, and discharge, Neck: Negative for injury, pain, and swelling, Abdomen/GI: Negative for abdominal pain, nausea, vomiting, diarrhea, and constipation, Back: Negative for injury and pain, MS/Extremity: Negative for injury and deformity, Skin: Negative for injury, rash, and discoloration, Neuro: Negative for headache, weakness, numbness, tingling, and seizure, Psych: Negative for depression, anxiety, suicide ideation, homicidal ideation, and hallucinations, Allergy/Immunology: Negative for hives, rash, and allergies, Endocrine: Negative for neck swelling, polydipsia, polyuria, polyphagia, and marked weight changes, Hematologic/Lymphatic: Negative for swollen nodes, abnormal bleeding, and unusual bruising, 19:44 All other systems are negative, Exam: 19:44 Constitutional: This is a well developed, well nourished patient who is awake, alert, sp3 and in no acute distress. Head/Face: Normocephalic, atraumatic. Eyes: Pupils equal round and reactive to light, extra-ocular motions intact. Lids and lashes normal. Conjunctiva and sclera are non-icteric and not injected. Cornea within normal limits. Periorbital areas with no swelling, redness, or edema. Neck: Trachea midline, no thyromegaly or masses palpated, and no cervical lymphadenopathy. Supple, full range of motion without nuchal rigidity, or vertebral point tenderness. No Meningismus. Chest/axilla: Normal chest wall appearance and motion. Nontender with no deformity. No lesions are appreciated. Respiratory: Lungs have equal breath sounds bilaterally, clear to auscultation and percussion. No rales, rhonchi or wheezes noted. No increased work of breathing, no retractions or nasal flaring. Abdomen/GI: Soft, non-tender, with normal bowel sounds. No distension or tympany. No guarding or rebound. No evidence of tenderness throughout. Back: No spinal tenderness. No costovertebral tenderness. Full range of motion. Skin: Warm, dry with normal turgor. Normal color with no rashes, no lesions, and no evidence of cellulitis. MS/ Extremity: Pulses equal, no cyanosis. Neurovascular intact. Full, normal range of motion. Neuro: Awake and alert, GCS 15, oriented to person, place, time, and situation. Cranial nerves II-XII grossly intact. Motor strength 5/5 in all extremities. Sensory grossly intact. Cerebellar exam normal. Normal gait. Psych: Awake, alert, with orientation to person, place and time. Behavior, mood, and affect are within normal limits. 19:44 Cardiovascular: Rate: tachycardic, 20:42 ECG was reviewed by the Attending Physician. EKG demonstrates sinus tachycardia at 106 sp3 bpm with normal intervals, normal QRS, normal axis and nonspecific diffuse ST/T changes without evidence of acute ischemia. Vital Signs: 19:23 BP 110 / 60; Pulse 124; Resp 18; Pulse Ox 95% on R/A; tb4 19:39 BP 120 / 66; Pulse 109; Resp 18; Pulse Ox 94% on R/A; tb4 20:34 BP 106 / 63; Pulse 102; Resp 19; Pulse Ox 97% on R/A; dd2 MDM: 19:29 Medical Screening Exam initiated sp3 19:45 Data reviewed: vital signs, nurses notes, old medical records, lab test result(s), EKG, sp3 radiologic studies. ED course: 44-year-old female with PMH above now with chest pain, shortness of breath after she was unable to get into the local [employer]. Patient is resting comfortably in no acute distress sleeping. Blood pressure is 120/66 and heart rate is between 110 and 115. Breathing at 1897% on room air in no acute distress or labored breathing. She states she has been taking her seizure medications without missing any doses. Differential diagnosis includes CHF exacerbation, COPD exacerbation, ACS, bronchitis, viral illness, electrolyte abnormality, among others. Workup will include chest x-ray, EKG and general labs. Disposition pending workup and patient course with discharge home if workup negative and vital signs are normal and patient continues to have no significant symptoms and is able to sleep like she has now.. 21:38 ED course: Full workup negative and patient is sleeping comfortably. We will safely sp3 discharge her home. Heart rate in the 90s.. 05/15 19:28 Order name: Basic Metabolic Panel; Complete Time: 21:38 sp3 05/15 19:28 Order name: CBC with Diff; Complete Time: 20:59 sp3 05/15 19:28 Order name: LFT's; Complete Time: 21:38 sp3 05/15 19:28 Order name: Magnesium; Complete Time: 21:38 sp3 05/15 19:28 Order name: NT PRO-BNP; Complete Time: 21:38 sp3 05/15 19:28 Order name: PT-INR; Complete Time: 20:38 sp3 05/15 19:28 Order name: Troponin HS; Complete Time: 21:38 sp3 05/15 20:56 Order name: CBC Smear Scan; Complete Time: 20:59 EDMS 05/15 19:28 Order name: XRAY Chest (1 view); Complete Time: 19:58 sp3 05/15 19:28 Order name: EKG; Complete Time: 19:29 sp3 05/15 19:28 Order name: Cardiac monitoring; Complete Time: 20:43 sp3 05/15 19:28 Order name: EKG - Nurse/Tech; Complete Time: 20:43 sp3 05/15 19:28 Order name: IV Saline Lock; Complete Time: 20:28 sp3 05/15 19:28 Order name: Labs collected and sent; Complete Time: 20:28 sp3 05/15 19:28 Order name: O2 Per Protocol; Complete Time: 20:28 sp3 05/15 19:28 Order name: O2 Sat Monitoring; Complete Time: 20:28 sp3 Administered Medications: No medications were administered Disposition Summary: 05/15/25 21:39 Discharge Ordered Notes: Location: Home sp3 Condition: Stable sp3 Diagnosis - Shortness of breath sp3 Followup: sp3 - With: Private Physician - When: Upon discharge from the Emergency Department - Reason: Continuance of care Discharge Instructions: - Discharge Summary Sheet sp3 - Shortness of Breath, Adult sp3 Forms: - Medication Reconciliation Form sp3 - Antibiotic Education sp3 - Prescription Opioid Use sp3 - Patient Portal Instructions sp3 - Leadership Thank You Letter sp3 Signatures: Dispatcher [employer] Trevon Benitez MD MD sp3 Kesha Hughes RN RN tb4
--- NOTE | 2025-05-15 21:40 | ER ---
Nurse's Notes [facility] Name: Fela De Leon Age: 44 yrs Sex: Female : 1980 Arrival Date: 05/15/2025 Time: 19:24 Bed 5 Private MD: Diagnosis: Shortness of breath Presentation: 05/15 19:23 Chief complaint: EMS states: Patient c/o chest pain. Coronavirus screen: At this time, tb4 the client does not indicate any symptoms associated with coronavirus-19. Ebola Screen: No symptoms or risks identified at this time. Initial Sepsis Screen: Does the patient meet any 2 criteria? No. Patient's initial sepsis screen is negative. Does the patient have a suspected source of infection? No. Patient's initial sepsis screen is negative. Risk Assessment: Do you want to hurt yourself or someone else? Patient reports no desire to harm self or others. Onset of symptoms was May 15, 2025. 19:23 Method Of Arrival: EMS: [facility] tb4 19:23 Acuity: RUPESH 3 tb4 Triage Assessment: 19:33 General: Appears in no apparent distress. Behavior is calm, cooperative. Neuro: Level tb4 of Consciousness is awake, alert, obeys commands, Oriented to person, place, time, situation, Moves all extremities. Full function Gait is steady, Speech is normal. Respiratory: Airway is patent Respiratory effort is even, unlabored, Respiratory pattern is regular, symmetrical. Historical: - Allergies: 19:33 Depakote; tb4 19:33 Haldol; tb4 19:33 Bromphenex DM; tb4 19:33 [place] Carbonate; tb4 19:33 Septra; tb4 19:33 Tamiflu; tb4 19:33 Rocephin; tb4 19:33 mometasone furoate (bulk); tb4 21:09 Tegretol; tb4 21:09 Wellbutrin; tb4 21:09 Cipro; tb4 - Home Meds: 19:33 atorvastatin 80 mg oral tablet 1 tab daily [Active]; celecoxib 200 mg Oral capsule 1 tb4 cap daily [Active]; clonazepam 1 mg Oral tablet 2 times per day [Active]; clonidine HCl 0.3 mg Oral tablet every six hours [Active]; mirtazapine 15 mg Oral tablet 1 tab daily [Active]; promethazine 12.5 mg Oral tablet every 12 hrs PRN [Active]; 21:09 cetirizine oral [Active]; tb4 - Immunization history:: Adult Immunizations up to date. - Infectious Disease History:: Denies. - Social history:: Smoking status: Patient denies any tobacco usage or history of. Patient/guardian denies using alcohol, street drugs, IV drugs, tobacco products. Screenin:39 Abuse screen: Denies threats or abuse. Nutritional screening: No deficits noted. tb4 Tuberculosis screening: No symptoms or risk factors identified. 21:05 [facility] ED Fall Risk Assessment (Adult) History of falling in the last 3 months, tb4 including since admission No falls in past 3 months (0 pts) Confusion or Disorientation No (0 pts) Intoxicated or Sedated No (0 pts) Impaired Gait Yes (1 pt) Mobility Assist Device Used Yes (1 pt) Altered Elimination No (0 pt) Score/Fall Risk Level 0 - 2 = Low Risk Maintained a safe environment. Assessment: 21:05 General: Appears in no apparent distress. comfortable, Behavior is calm, cooperative. tb4 Pain: Complains of pain in chest Pain does not radiate. Pain currently is 8 out of 10 on a pain scale. Quality of pain is described as sharp, Pain began suddenly, Is continuous. Neuro: Level of Consciousness is awake, alert, obeys commands, Oriented to person, place, time, situation, Moves all extremities. Full function Gait is unsteady, Patient uses a walker. Speech is normal, Facial symmetry appears normal. Cardiovascular: Reports chest pain, Capillary refill < 3 seconds is brisk in bilateral fingers Patient's skin is warm and dry. Respiratory: Airway is patent Respiratory effort is even, unlabored, Respiratory pattern is regular, symmetrical. GI: No signs and/or symptoms were reported involving the gastrointestinal system. : No signs and/or symptoms were reported regarding the genitourinary system. EENT: No signs and/or symptoms were reported regarding the EENT system. Derm: No signs and/or symptoms reported regarding the dermatologic system. Skin is intact, is healthy with good turgor, Skin is dry, Skin is normal, Skin temperature is warm. Musculoskeletal: Circulation, motion, and sensation intact. Range of motion: intact in all extremities. Vital Signs: 19:23 BP 110 / 60; Pulse 124; Resp 18; Pulse Ox 95% on R/A; tb4 19:39 BP 120 / 66; Pulse 109; Resp 18; Pulse Ox 94% on R/A; tb4 20:34 BP 106 / 63; Pulse 102; Resp 19; Pulse Ox 97% on R/A; dd2 ED Course: 19:26 Patient arrived in ED. rv1 19:26 Trevon Armenta MD is Attending Physician. sp3 19:33 Triage completed. tb4 19:38 XRAY Chest (1 view) In Process Unspecified. EDMS 19:39 Patient has correct armband on for positive identification. Bed in low position. Call tb4 light in reach. Client placed on continuous cardiac and pulse oximetry monitoring. NIBP monitoring applied. Lights dimmed. 20:28 Initial lab(s) drawn, by ED staff, sent to lab. Inserted saline lock: 22 gauge in left dd2 forearm, using aseptic technique. Blood collected. Flushed with 10 mL NS. 20:43 No provider procedures requiring assistance completed. EKG done, by ED staff, reviewed dd2 by Trevon Armenta MD. 21:00 Provided Education on: LABS. dd2 21:09 Arm band placed on right wrist. EKG completed in triage. Results shown to MD. tb4 21:53 IV discontinued, intact, bleeding controlled, No redness/swelling at site. Pressure dd2 dressing applied. Administered Medications: No medications were administered Medication: 19:39 VIS not applicable for this client. tb4 Outcome: 21:00 Discharged to home ambulatory, dd2 21:00 Condition: stable 21:00 Discharge instructions given to PT LEFT WITHOUT D/C INSTRUCTIONS Instructed on PT LEFT WITHOUT D/C INSTRUCTIONS 21:39 Discharge ordered by . sp3 21:55 Patient left the ED. dd2 Signatures: Dispatcher [employer] EDMS Trevon Armenta MD MD sp3 Ree Patrick rv1 DELFIN BOSS RN RN dd2 Kesha Hughes RN RN tb4 Corrections: (The following items were deleted from the chart) 21:09 19:39 [facility] ED Fall Risk Assessment (Adult) History of falling in the last 3 months, tb4 including since admission No falls in past 3 months (0 pts) Confusion or Disorientation No (0 pts) Intoxicated or Sedated No (0 pts) Impaired Gait No (0 pts) Mobility Assist Device Used No (0 pt) Altered Elimination No (0 pt) Score/Fall Risk Level 0 - 2 = Low Risk Maintained a safe environment, tb4
[2025-05-15 22:17] VITALS: BP 106/63; O2SAT 97
== END 2025-05-15 21:55 | disposition home or self-care (01) ==
LOC: ER 19:24
DX: R06.02 Shortness of breath (principal); R07.9 Chest pain, unspecified
CPT/HCPCS: 36415; 71045; 80048; 80076; 83735; 83880; 84484; 85025; 85610; 93005; 99284

== ENCOUNTER 2025-05-16 10:30 | Inpatient (IN) | payer MEDICAID ==
[2025-05-16] MEDS ORDERED: NA CHLORIDE 0.9% 3,000 ML ONE (10:45)
[2025-05-16] MEDS ORDERED: CEFTRIAXONE 2000 MG/VIAL ONE (10:45)
[2025-05-16] MEDS ORDERED: FAMOTIDINE 20 MG/2 ML VIAL IV ONE (10:45)
[2025-05-16] MEDS ORDERED: NA CHLORIDE 0.9% 50 ML ONE (10:46)
--- NOTE | 2025-05-16 11:20 | RAD REPORT ---
EXAM: CT brain without contrast HISTORY: DIZZINESS COMPARISON: None TECHNIQUE: Multiple contiguous axial images were obtained and a CT of the brain without contrast. Sag ittal and coronal reformats were performed. One or more of the following dose reduction techniques were used: Automated exposure control, adjust ment of the mA and/or kV according to patient size, and/or iterative reconstruction. FINDINGS: No evidence of hydrocephalus, intracranial hemorrhage, or extra-axial fluid collection. The brain is normal in morphology. No evidence of midline shift or areas of brain edema. The calvarium is intact. The visualized paranasal sinuses and mastoid air cells are essentially clear . EXAM: CT of the cervical spine without contrast HISTORY: Neck pain, injury DIZZINESS TECHNIQUE: Multiple contiguous axial images were obtained in a CT of the cervical spine without contr ast. Sagittal and coronal reformats were performed. FINDINGS: The vertebral bodies demonstrate normal height and alignment. No evidence of acute fracture or subluxation.. No degenerative changes are present. No prevertebral soft tissue swelling is seen. The posterior facets are well aligned. Normal alignment of the skull base with the cervical spine is seen. The lung apices are unremarkable. COMBINED IMPRESSION: No evidence of acute intracranial abnormality. No evidence of acute osseous abnormality of the cervical spine.
[2025-05-16 11:22] LABS: Blood O2 Saturation 92.7 % (92.0-98.5)
--- NOTE | 2025-05-16 11:22 | RAD REPORT ---
EXAM: CT CHEST, ABDOMEN AND PELVIS WITHOUT CONTRAST CLINICAL INDICATION: dizziness TECHNIQUE: CT chest, abdomen and pelvis was performed without contrast, as per department protocol. A xial, sagittal and coronal reconstructions were obtained. One or more of the following dose reduction techniques were used: Automated exposure control, adjustment of the mA and/or kV according to patient size, and/or iterative reconstruction. Unless otherwise specified, incidental findings do not require dedicated imaging follow-up. Examination is limited by the lack of intravenous contrast material. COMPARISON: No prior exam. FINDINGS: LUNGS: No evidence of airspace or interstitial process. No nodules. PLEURA: No pleural effusion. No pneumothorax. MEDIASTINUM AND LYMPH NODES: No mediastinal mass or fluid collection. Normal size mediastinal, hilar, and axillary lymph nodes. OSSEOUS STRUCTURES AND CHEST WALL: Intact. LIVER: Normal in size and contour. No focal lesion or biliary dilatation. Grossly unremarkable gallbl adder. PANCREAS: No mass, ductal dilation, or alvaro-pancreatic fluid. SPLEEN: Normal size. No focal lesion. ADRENALS: Normal; no mass. KIDNEYS: Normal size and contour. No hydronephrosis. URINARY BLADDER: Normal contour. GASTROINTESTINAL TRACT: No bowel obstruction, free air, significant free fluid or abscess. APPENDIX: Normal appendix. LYMPH NODES: No lymphadenopathy. MUSCULOSKELETAL: No acute or suspicious osseous abnormality. OTHER: IMPRESSION: No acute abnormalities seen in the chest, abdomen or pelvis.
[2025-05-16 11:38] LABS: Absolute Lymphocytes (CBC) 1.7 K/uL (0.7-4.9); Hematocrit 29.4 % (36.0-45.0); Hemoglobin 9.7 g/dL (12.0-15.0); MCH 23.7 pg (27.0-35.0); MCHC 32.9 g/dL (32.0-36.0); MCV 72.2 fL (80-100); MPV 7.9 fL (7.6-11.3); Nucleated RBC Absolute Count 0.0 (0-0); Nucleated Red Blood Cells % 0.2 % (0-0); RBC Red Blood Cell Count 4.07 M/uL (3.86-4.86); White Blood Count 8.10 thou/uL (4.3-10.9)
[2025-05-16 11:48] LABS: PT Prothrombin Time 14.8 SECONDS (10-13.0); PTT, Activated Partial Thromb 28.9 SECONDS (27.2-37.4); Protime INR 1.32
[2025-05-16 12:02] LABS: ALT/SGPT 25 U/L (13-56); AST/SGOT 14 U/L (15-37); Albumin 3.3 g/dL (3.4-5.0); Albumin/Globulin Ratio 0.9 (1.1-1.8); Alkaline Phosphatase 82 U/L (45-117); Anion Gap 8.3 mEq/L (5.0-15.0); BUN Blood Urea Nitrogen 9 mg/dL (7-18); Globulin 3.5 g/dL (2.3-3.5); Glucose Level 120 mg/dL (74-106); Lipase 14 U/L (13-75); Magnesium 2.0 mg/dL (1.6-2.4); NT PRO-BNP 90 pg/mL (<125); Potassium 3.3 mEq/L (3.5-5.1); Troponin High Sensitivity 36.7 pg/mL (<58.9)
[2025-05-16 12:04] LABS: Bilirubin Indirect, Calculated 0.1 mg/dL (0.2-0.8)
[2025-05-16 12:40] LABS: Sqamous Epithelial <5 /HPF (None Seen); Urine Crystals Unidentified Few /HPF (None Seen); Urine Culture Reflex Order REFLEXED; Urine Microscopic Reflex YN ORDER UMIC; Urine WBC Clump Rare /HPF (None Seen)
[2025-05-16 12:46] LABS: METHAMPHETAM NEGATIVE (NEGATIVE); THC Cannibis POSITIVE (NEGATIVE)
[2025-05-16] MEDS ORDERED: ACETAMINOPHEN 325 MG/SUPP PR ONE (12:52)
[2025-05-16] MEDS ORDERED: VANCOMYCIN 500 MG/VIAL ONE (12:52)
[2025-05-16] MEDS ORDERED: VANCOMYCIN 1 GM/VIAL ONE (12:52)
[2025-05-16] MEDS ORDERED: NA CHLORIDE 0.9% 500 ML ONE (12:53)
--- NOTE | 2025-05-16 13:45 | ER ---
Nurse's Notes [facility] Name: Fela De Leon Age: 44 yrs Sex: Female : 1980 Arrival Date: 05/16/2025 Time: 10:30 Bed 23 Private MD: Diagnosis: Altered mental status, unspecified;Weakness;Fever, unspecified;Obesity, unspecified;Acute cystitis with hematuria Presentation: 05/16 10:46 Chief complaint: Patient states: Found altered sitting in grass at [address]. ll1 EMS states: 94% RA, lowest BP 74 systolic. 22 g R hand 250 ml bolus given. 93 systolic upon arrival. Temp 100.3, tachycardic 130's. Fingerstick 138. Here yesterday. Coronavirus screen: Client denies travel out of the [place] in the last 14 days. At this time, the client does not indicate any symptoms associated with coronavirus-19. Ebola Screen: Patient denies travel to an Ebola-affected area in the 21 days before illness onset. Initial Sepsis Screen: Does the patient meet any 2 criteria? No. Patient's initial sepsis screen is negative. Does the patient have a suspected source of infection? No. Patient's initial sepsis screen is negative. Risk Assessment: Do you want to hurt yourself or someone else? Patient reports no desire to harm self or others. Onset of symptoms was May 16, 2025. 10:46 Method Of Arrival: EMS: [facility] ll1 10:46 Acuity: RUPESH 2 ll1 Historical: - Allergies: 10:45 Brand name Carbatrol; ll1 10:45 Bromfed DM; ll1 10:45 Bromphenex DM; ll1 10:45 BuSpar; ll1 10:45 Cipro; ll1 10:45 Depakote; ll1 10:45 Haldol; ll1 10:45 Keppra; ll1 10:45 [place] Carbonate; ll1 10:45 mometasone furoate (bulk); ll1 10:45 Ritalin; ll1 10:45 Rocephin; ll1 10:45 Septra; ll1 10:45 Tamiflu; ll1 10:45 Tegretol; ll1 10:45 Wellbutrin; ll1 10:45 Zoloft; ll1 - PMHx: 10:45 COPD; Asthma; PTSD; CHF; Anxiety; Seizures; ll1 - PSHx: 10:45 hysterectomy; Right knee x2; ll1 - Immunization history:: Adult Immunizations up to date. - Infectious Disease History:: unknown. - Social history:: Smoking status: unknown. Screenin:00 [facility] ED Fall Risk Assessment (Adult) History of falling in the last 3 months, hb including since admission No falls in past 3 months (0 pts) Confusion or Disorientation Yes (5 pts) Intoxicated or Sedated Yes (3 pts) Impaired Gait No (0 pts) Mobility Assist Device Used Yes (1 pt) Altered Elimination Yes (1 pt) Score/Fall Risk Level 3 or more points = High Risk Oriented to surroundings, Maintained a safe environment, Educated pt \T\ family on fall prevention, incl call for assistance when getting out of bed. Abuse screen: no s/s of abuse. Nutritional screening: No deficits noted. Tuberculosis screening: unknown. Assessment: 11:00 General: Appears in no apparent distress. Behavior is obtunded. Pain: Unable to use hb pain scale. Patient is disoriented. Neuro: Level of Consciousness is obtunded, Oriented to none. Cardiovascular: Patient's skin is warm and dry. Respiratory: Respiratory effort is even, unlabored, Respiratory pattern is regular, symmetrical. GI: No deficits noted. : No deficits noted. EENT: No deficits noted. Derm: Skin is pink, warm \T\ dry. Musculoskeletal: No deficits noted. 12:54 Reassessment: Patient appears in no apparent distress at this time. No changes from hb previously documented assessment. 13:48 Reassessment: [facility] Vacuum Tank Tender, LARISA Garcia called looking for pt as she ss was trying to help her find group home as patient reports to be homeless. Placement found at [address] [address] prior to hospitalization. Contact at [facility]: Lars. Contact for LARISA Garcia [phone]. 15:27 Reassessment: Patient appears in no apparent distress at this time. No changes from hb previously documented assessment. Vital Signs: 10:43 Weight 124 kg; Height 5 ft. 4 in. ; hb 10:51 BP 108 / 69; Pulse 82; Resp 22; Temp 100.3; Pulse Ox 93% on R/A; hb 12:54 BP 136 / 64; Pulse 121; Resp 18; Temp 98.5(A); Pulse Ox 98% on R/A; iw 13:47 BP 110 / 55; Pulse 116; Resp 20; Pulse Ox 94% on R/A; iw 15:28 BP 117 / 61; Pulse 105; Resp 17; Pulse Ox 99% on R/A; hb 10:43 Body Mass Index 46.92 (124.00 kg, 162.56 cm) hb ED Course: 10:32 Patient arrived in ED. bd 10:32 Leonides Smalls MD is Attending Physician. luc 10:40 Arm band placed on Patient placed in an exam room, on a stretcher. ll1 10:49 Triage completed. ll1 11:00 Patient has correct armband on for positive identification. Provided Education on: .. hb Client placed on continuous cardiac and pulse oximetry monitoring. NIBP monitoring applied. sliver cutter on. Pulse ox on. NIBP on. 11:04 Chest Abd Pelvis Wo Con In Process Unspecified. EDMS 11:04 Head C Spine Mpr Wo Con In Process Unspecified. EDMS 11:29 Initial lab(s) drawn, by or, sent to lab. Inserted saline lock: 18 gauge in left hb forearm, using aseptic technique. Blood collected. Flushed with 10 mL NS. 11:39 EKG done, by health technical writer. reviewed by Leonides Smalls MD. ts3 13:27 XRAY Chest (1 view) In Process Unspecified. EDMS 13:30 [place] cath inserted, using sterile technique, 16 Fr., by payroll and benefits manager, balloon inflated, to hb gravity drainage, urine specimen collected. returned jolly urine. Patient tolerated well. 13:43 Prince Dillard MD is Hospitalizing Provider. luc 13:51 Yakelin Yu, RN is Primary Nurse. iw 15:28 No provider procedures requiring assistance completed. Patient admitted, IV remains in hb place. 19:30 Lupe Hawley, RN is Primary Nurse. kb4 Administered Medications: 11:43 Drug: Rocephin IV 2 grams IV at per protocol once; Given slow IV push per pharmarcy hb instructions Route: IV; Rate: per protocol; Site: right antecubital; 15:22 Follow up: Response: No adverse reaction; IV Status: Completed infusion hb 11:43 Drug: Famotidine IVP 20 mg IVP once; dilute with 10 mL 0.9% NaCl; give over 2 minutes hb Route: IVP; Site: right antecubital; 12:30 Follow up: Response: No adverse reaction hb 11:44 Drug: NS 0.9% IV (30 ml/kg) 30 ml/kg IV at bolus once; Sepsis Protocol; to be given as hb a bolus over 90 minutes Route: IV; Rate: bolus; Site: left forearm; 15:22 Follow up: Response: No adverse reaction; IV Status: Completed infusion; IV Intake: hb 4000ml 13:09 Drug: Acetaminophen [place] Suppository 975 mg KS once Route: KS; iw 14:00 Follow up: Response: No adverse reaction hb 13:09 Drug: vancoMYCIN IVPB 1.5 grams IVPB at calculated rate once Route: IVPB; Rate: iw calculated rate; Site: right hand; Medication: 15:27 VIS not applicable for this client. hb Intake: 15:22 IV: 4000ml; Total: 4000ml. hb Outcome: 13:44 Decision to Hospitalize by Provider. luc 15:28 Admitted to ER Hold. Please see [facility] for further documentation. hb 15:28 Condition: stable 15:28 Instructed on pt obtunded, does not understand instructions 05/17 07:12 Patient left the ED. iw Signatures: Dispatcher [employer] EDMS Francy Clifton Corey, MD MD cha Williams, Irene, RN RN Mckenzie Crowder RN RN ss Baxter, Heather, RN RN Remigio Luo RN RN ll1 Lupe Hawley RN RN kb4 Valerie May 3 Corrections: (The following items were deleted from the chart) 05/16 13:20 12:54 BP 136 / 64; Pulse 121bpm; Resp 18bpm; Pulse Ox 98% RA; hb iw 13:34 10:51 BP 108 / 69; Pulse 82bpm; Resp 22bpm; Pulse Ox 93% RA; Temp 103F; hb hb
--- NOTE | 2025-05-16 13:45 | EDPHYS ---
Physician Documentation [facility] Name: Fela De Leon Age: 44 yrs Sex: Female : 1980 Arrival Date: 05/16/2025 Time: 10:30 Bed 23 Private MD: ED Physician Leonides Smalls HPI: 05/16 13:37 This 44 yrs old Female presents to ER via EMS with complaints of Altered luc Mental Status. 13:37 The patient presents with decreased mental status, decreased responsiveness, trouble luc concentrating. Onset: The symptoms/episode began/occurred today, 1 day(s) ago. Possible causes: CVA or TIA, drug use, alcohol, head injury, low blood sugar, seizure, sepsis, the patient has had a history of a fever, reportedly as high as 100.3 degrees Fahrenheit. Associated signs and symptoms: Pertinent positives: shortness of breath. Current symptoms: In the emergency department the patient's symptoms have improved, mildly. Patient's baseline: Neuro: alert and fully oriented. The patient has not experienced similar symptoms in the past, It is unknown whether or not the patient has had similar symptoms in the past. Historical: - Allergies: 10:45 Brand name Carbatrol; ll1 10:45 Bromfed DM; ll1 10:45 Bromphenex DM; ll1 10:45 BuSpar; ll1 10:45 Cipro; ll1 10:45 Depakote; ll1 10:45 Haldol; ll1 10:45 Keppra; ll1 10:45 [place] Carbonate; ll1 10:45 mometasone furoate (bulk); ll1 10:45 Ritalin; ll1 10:45 Rocephin; ll1 10:45 Septra; ll1 10:45 Tamiflu; ll1 10:45 Tegretol; ll1 10:45 Wellbutrin; ll1 10:45 Zoloft; ll1 - PMHx: 10:45 COPD; Asthma; PTSD; CHF; Anxiety; Seizures; ll1 - PSHx: 10:45 hysterectomy; Right knee x2; ll1 - Immunization history:: Adult Immunizations up to date. - Infectious Disease History:: unknown. - Social history:: Smoking status: unknown. ROS: 13:39 Constitutional: Negative for fever, chills, and weight loss, Eyes: Negative for injury, luc pain, redness, and discharge, ENT: Negative for injury, pain, and discharge, Neck: Negative for injury, pain, and swelling, Abdomen/GI: Negative for abdominal pain, nausea, vomiting, diarrhea, and constipation, Back: Negative for injury and pain, : Negative for injury, bleeding, discharge, and swelling, MS/Extremity: Negative for injury and deformity, Skin: Negative for injury, rash, and discoloration, Psych: Negative for depression, anxiety, suicide ideation, homicidal ideation, and hallucinations, Allergy/Immunology: Negative for hives, rash, and allergies, Endocrine: Negative for neck swelling, polydipsia, polyuria, polyphagia, and marked weight changes, Hematologic/Lymphatic: Negative for swollen nodes, abnormal bleeding, and unusual bruising, 13:39 Cardiovascular: Positive for palpitations, 13:39 Respiratory: Positive for cough, 13:39 Neuro: Positive for altered mental status, weakness, Exam: 13:39 Head/Face: Normocephalic, atraumatic. Eyes: Pupils equal round and reactive to light, luc extra-ocular motions intact. Lids and lashes normal. Conjunctiva and sclera are non-icteric and not injected. Cornea within normal limits. Periorbital areas with no swelling, redness, or edema. ENT: Nares patent. No nasal discharge, no septal abnormalities noted. Tympanic membranes are normal and external auditory canals are clear. Oropharynx with no redness, swelling, or masses, exudates, or evidence of obstruction, uvula midline. Mucous membranes moist. Neck: Trachea midline, no thyromegaly or masses palpated, and no cervical lymphadenopathy. Supple, full range of motion without nuchal rigidity, or vertebral point tenderness. No Meningismus. Chest/axilla: Normal chest wall appearance and motion. Nontender with no deformity. No lesions are appreciated. Abdomen/GI: Soft, non-tender, with normal bowel sounds. No distension or tympany. No guarding or rebound. No evidence of tenderness throughout. Back: No spinal tenderness. No costovertebral tenderness. Full range of motion. Female : Normal external genitalia. Skin: Warm, dry with normal turgor. Normal color with no rashes, no lesions, and no evidence of cellulitis. MS/ Extremity: Pulses equal, no cyanosis. Neurovascular intact. Full, normal range of motion., bilateral aka 13:39 Cardiovascular: Rate: tachycardic, actual rate is 122 bpm, Rhythm: regular, Pulses: Pulses are 4+ in bilateral radial, brachial, femoral, popliteal, posterior tibial and and dorsalis pedis arteries.. Edema: is not appreciated, JVD: is not appreciated, 13:39 ECG was reviewed by the Attending Physician. Vital Signs: 10:43 Weight 124 kg; Height 5 ft. 4 in. ; hb 10:51 BP 108 / 69; Pulse 82; Resp 22; Temp 100.3; Pulse Ox 93% on R/A; hb 12:54 BP 136 / 64; Pulse 121; Resp 18; Temp 98.5(A); Pulse Ox 98% on R/A; iw 13:47 BP 110 / 55; Pulse 116; Resp 20; Pulse Ox 94% on R/A; iw 15:28 BP 117 / 61; Pulse 105; Resp 17; Pulse Ox 99% on R/A; hb 10:43 Body Mass Index 46.92 (124.00 kg, 162.56 cm) hb MDM: 10:32 Medical Screening Exam initiated luc 13:41 Differential diagnosis: viral Infection, bacterial infection, URI, bronchitis, luc pneumonia UTI, gastroenteritis, meningitis. Differential Diagnosis altered mental status, sepsis, flu. Differential Diagnosis: CVA, electrolyte abnormality, alcohol intoxication, hypoglycemia, intracranial bleed, meningitis, overdose, pneumonia, seizure, sepsis, TIA, UTI, volume depletion. Data reviewed: vital signs, nurses notes, EMS record, lab test result(s), EKG, radiologic studies, CT scan, plain films. Consideration of Admission/Observation Patient was admitted/placed on observation. Escalation of care including admission/observation considered. I considered the following discharge prescriptions or medication management in the emergency department Medications were administered in the Emergency Department. See MAR. Independent interpretation of the following test(s) in the Emergency Department EKG: See my EKG interpretation above. Test considered but Not performed: MRI: NO MRI BRAIN. Care significantly affected by the following chronic conditions: Congestive Heart Failure, Chronic Obstructive Pulmonary Disease, Obesity, PTSD , ANXIETY , SEIZURES. 05/16 10:35 Order name: Basic Metabolic Panel; Complete Time: 13:13 [facility] 05/16 10:35 Order name: CBC with Diff [facility] 05/16 10:35 Order name: LFT's; Complete Time: 13:13 [facility] 05/16 10:35 Order name: Magnesium; Complete Time: 13:13 [facility] 05/16 10:35 Order name: NT PRO-BNP; Complete Time: 13:13 [facility] 05/16 10:35 Order name: PT-INR; Complete Time: 13:13 [facility] 05/16 10:35 Order name: Troponin HS; Complete Time: 13:13 [facility] 05/16 10:35 Order name: Lipase; Complete Time: 13:13 [facility] 05/16 10:35 Order name: Acetaminophen; Complete Time: 13:13 [facility] 05/16 10:35 Order name: ETOH Level; Complete Time: 13:13 [facility] 05/16 10:35 Order name: Ptt, Activated; Complete Time: 13: [facility] 05/16 10:35 Order name: Salicylate; Complete Time: 13: [facility] 05/16 10:35 Order name: Urine Drug Screen; Complete Time: 13:13 [facility] 05/16 10:35 Order name: Blood Culture Adult (2) [facility] 05/16 10:35 Order name: Lactate w/ 2H reflex if indic.; Complete Time: 13:13 [facility] 05/16 10:35 Order name: UA Rfx Nicholas Cult if indicated; Complete Time: 13:13 [facility] 05/16 10:47 Order name: ABG; Complete Time: 11:47 05/16 12:43 Order name: Urine Culture [facility] 05/16 13:13 Order name: COVID-19 Ag + Flu A+B Ag [facility] 05/16 13:13 Order name: Group A Streptococcus Rapid [facility] 05/16 14:02 Order name: Lactate w/ 2H reflex if indic. EDAL 05/16 14:02 Order name: Magnesium [facility] 05/16 14:02 Order name: Phosphorus [facility] 05/16 14:02 Order name: Basic Metabolic Panel [facility] 05/16 14:02 Order name: Basic Metabolic Panel EDAL 05/16 14:02 Order name: CBC with Automated Diff EDAL 05/16 14:02 Order name: CBC with Automated Diff [facility] 05/16 14:03 Order name: Throat Culture [facility] 05/16 14:18 Order name: CBC Smear Scan EDAL 05/16 17:10 Order name: Glucose, Ancillary Testing EDMS 05/17 05:05 Order name: Phosphorus EDMS 05/17 05:05 Order name: Magnesium EDAL 05/16 10:35 Order name: XRAY Chest (1 view) [facility] 05/16 10:47 Order name: Chest Abd Pelvis Wo Con; Complete Time: 11:47 EDAL 05/16 10:48 Order name: Head C Spine Mpr Wo Con; Complete Time: 11:47 EDAL 05/16 10:35 Order name: EKG; Complete Time: 10:36 [facility] 05/16 10:35 Order name: Cardiac monitoring; Complete Time: 11:39 [facility] 05/16 10:35 Order name: EKG - Nurse/Tech; Complete Time: 11:39 [facility] 05/16 10:35 Order name: IV Saline Lock; Complete Time: 11:44 [facility] 05/16 10:35 Order name: Labs collected and sent; Complete Time: 11:44 [facility] 05/16 10:35 Order name: O2 Per Protocol; Complete Time: 11:44 [facility] 05/16 10:35 Order name: O2 Sat Monitoring; Complete Time: 11:44 [facility] 05/16 10:35 Order name: IV Saline Lock - Large Bore; Complete Time: 11:44 [facility] 05/16 10:35 Order name: [place]; Complete Time: 12:21 luc EC:39 Rate is 117 beats/min. Rhythm is regular. QRS [place] is Normal. W[place] interval is shortened luc at 96 msec. QRS interval is normal. QT interval is normal. No Q waves. T waves are Normal. No ST changes noted. Clinical impression: Sinus tachycardia and No evidence of ischemia. Interpreted by me. Reviewed by me. Administered Medications: 11:43 Drug: Rocephin IV 2 grams IV at per protocol once; Given slow IV push per pharmarcy hb instructions Route: IV; Rate: per protocol; Site: right antecubital; 15:22 Follow up: Response: No adverse reaction; IV Status: Completed infusion hb 11:43 Drug: Famotidine IVP 20 mg IVP once; dilute with 10 mL 0.9% NaCl; give over 2 minutes hb Route: IVP; Site: right antecubital; 12:30 Follow up: Response: No adverse reaction hb 11:44 Drug: NS 0.9% IV (30 ml/kg) 30 ml/kg IV at bolus once; Sepsis Protocol; to be given as hb a bolus over 90 minutes Route: IV; Rate: bolus; Site: left forearm; 15:22 Follow up: Response: No adverse reaction; IV Status: Completed infusion; IV Intake: hb 4000ml 13:09 Drug: Acetaminophen [place] Suppository 975 mg [place] once Route: WV; iw 14:00 Follow up: Response: No adverse reaction hb 13:09 Drug: vancoMYCIN IVPB 1.5 grams IVPB at calculated rate once Route: IVPB; Rate: iw calculated rate; Site: right hand; Disposition Summary: 05/16/25 13:44 Hospitalization Ordered Notes: Hospitalization Status: Inpatient Admission luc Provider: Prince luc Dillard Condition: Fair luc Problem: new luc Symptoms: have improved luc Bed/Room Type: Standard luc Location: [facility] ER HOLD(05/16/25 14:42) kb3 Room Assignment: ERHOLD-(05/16/25 14:42) kb3 Diagnosis - Altered mental status, unspecified luc - Weakness luc - Fever, unspecified luc - Obesity, unspecified luc - Acute cystitis with hematuria luc Forms: - Medication Reconciliation Form luc - SBAR form luc - Leadership Thank You Letter luc Signatures: Dispatcher [employer] EDMS Leonides Smalls MD MD cha Williams, Irene, RN LARISA iw Melisa Baer RN RN Remigio Valles RN RN ll1 Yuliet Montoya RN RN kb3 Corrections: (The following items were deleted from the chart) 10:36 10:36 BASIC METABOLIC PANEL+C.LAB.BRZ ordered. EDMS EDMS 10:36 10:36 CBC+H.LAB.BRZ ordered. EDMS EDMS 10:36 10:36 HEPATIC FUNCTION+C.LAB.BRZ ordered. EDMS EDMS 10:36 10:36 MAGNESIUM+C.LAB.BRZ ordered. EDMS EDMS 10:36 10:36 PROBNP+C.LAB.BRZ ordered. EDMS EDMS 10:36 10:36 PROTIME (+INR)+COAG.LAB.BRZ ordered. EDMS EDMS 10:36 10:36 Troponin High Sensitivity+C.LAB.BRZ ordered. EDMS EDMS 10:36 10:36 LIPASE+C.LAB.BRZ ordered. EDMS EDMS 10:36 10:36 ACETAMINOPHEN+C.LAB.BRZ ordered. EDMS EDMS 10:36 10:36 ETHANOL+C.LAB.BRZ ordered. EDMS EDMS 10:36 10:36 PTT, ACTIVATED+COAG.LAB.BRZ ordered. EDMS EDMS 10:36 10:36 SALICYLATE+C.LAB.BRZ ordered. EDMS EDMS 10:36 10:36 URINE DRUG SCREEN+UC.LAB.BRZ ordered. EDMS EDMS 10:36 10:36 BLOOD CULTURE*+BA.LAB.BRZ ordered. EDMS EDMS 10:36 10:36 LACTATE+C.LAB.BRZ ordered. EDMS EDMS 10:36 10:36 UA Rfx Nicholas Cult if indicated+U.LAB.BRZ ordered. EDMS EDMS 10:36 10:36 Head C Spine Cap Wo Con+CT.RAD.BRZ ordered. EDMS EDMS 10:47 10:47 Arterial Blood Gas+RC.LAB.BRZ ordered. EDMS EDMS 14:42 13:44 Intensive Care Unit [facility] 14:42 13:44 [facility]
[2025-05-16] MEDS ORDERED: ONDANSETRON 4 MG/2 ML VIAL IV PRN (13:58)
--- NOTE | 2025-05-16 13:58 | P.HP ---
Certification for Inpatient Patient admitted to: Inpatient With expected LOS: >2 Midnights Practitioner: I am a practitioner with admitting privileges, knowledge of patient current condition, hospital course, and medical plan of care. Services: Services provided to patient in accordance with Admission requirements found in Title 42 Section 412.3 of the Code of Federal Regulations Patient History Date of Service: 05/16/25 Reason for admission: Acute encephalopathy History of Present Illness: Patient is a 44-year-old female brought into the hospital via EMS for altered mental status. Patient was reportedly sitting in the grass at [address]. EMS found her hypotensive SBP 74. She received 250 cc bolus of IV fluid prior to arrival. She had 100.3 degrees temperature and was tachycardic in the 130s. Fingerstick blood glucose was 138. Workup in the ER was largely unremarkable except for urine toxicology which showed cannabis and benzos. She arrived in the ER borderline blood pressure, which continued to improve. Patient has a past medical history of COPD/asthma, PTSD, congestive heart failure and seizure disorder Allergies benzonatate [From Tessalon Perles] Allergy (Verified 11/30/24 19:27) Anaphylaxis brompheniramine [From Bromfed DM] Allergy (Verified 11/30/24 19:27) Hives bupropion [From Wellbutrin] Allergy (Verified 11/30/24 19:27) Itching/Hives/Rash ceftriaxone [From Rocephin] Allergy (Verified 11/30/24 19:27) Anaphylaxis ciprofloxacin [From Cipro] Allergy (Verified 11/30/24 19:27) Itching/Hives/Rash dextromethorphan [From Bromfed DM] Allergy (Verified 11/30/24 19:27) Hives divalproex sodium [From Depakote] Allergy (Verified 11/30/24 19:27) Itching/Hives/Rash haloperidol [From Haldol] Allergy (Verified 11/30/24 19:27) Itching/Hives/Rash levetiracetam [From Keppra] Allergy (Verified 11/30/24 19:27) Itching/Hives/Rash methylphenidate [From Ritalin] Allergy (Verified 11/30/24 19:27) Itching/Hives/Rash oseltamivir [From Tamiflu] Allergy (Verified 11/30/24 19:27) Itching/Hives/Rash pseudoephedrine [From Bromfed DM] Allergy (Verified 11/30/24 19:27) Hives sertraline [From Zoloft] Allergy (Verified 11/30/24 19:27) Itching/Hives/Rash buspirone [From BuSpar] Adverse Reaction (Verified 11/30/24 19:27) Shortness of breath carbamazepine [From Tegretol] Adverse Reaction (Verified 11/30/24 19:28) Nausea/Vomiting Home Medications: Atorvastatin Calcium [Lipitor] 80 mg PO BEDTIME 11/30/24 Gabapentin 800 mg PO BID 11/30/24 Quetiapine Fumarate [Seroquel] 800 mg PO BEDTIME 11/30/24 Tizanidine [Zanaflex*] 4 mg PO QID 11/30/24 Trazodone [Desyrel*] 300 mg PO BEDTIME 11/30/24 Zolpidem Tartrate [Ambien*] 10 mg PO BEDTIME PRN PRN 11/30/24 cloNIDine HCL [Catapres*] 0.3 mg PO DAILY 11/30/24 cloNIDine HCL [Catapres*] 0.3 mg PO NOON 11/30/24 cloNIDine HCL [Catapres*] 0.6 mg PO BEDTIME 11/30/24 clonazePAM [Klonopin*] 1 mg PO TIDP PRN 11/30/24 Cetirizine HCl [Allergy] 10 mg PO DAILY 12/01/24 Fluticasone/Umeclidin/Vilanter [Trelegy Ellipta 200-62.5-25] 1 each IH DAILY 12/01/24 Mirtazapine [Remeron*] 15 mg PO BEDTIME 12/01/24 Montelukast [Singulair*] 10 mg PO DAILY 12/01/24 Topiramate [Topamax*] 100 mg PO BID 12/01/24 Venlafaxine HCl [Effexor Xr] 3 cap PO DAILY 12/01/24 carBAMazepine [Carbatrol] 300 mg PO Q12H 12/01/24 Amox/Clavulanate [Augmentin 875-125 Tab] 1 each PO BID 5 Days #10 tab 12/02/24 Fluconazole 100 mg PO DAILY 5 Days #5 tab 12/02/24 Miconazole Cream [Monistat-Derm*] 4 gm TP DAILY 5 Days #2 tube 12/02/24 - Past Medical/Surgical History Diabetic: No -: CHFdiastolic -: COPD/asthma -: Anxiety/depression -: Insomnia -: Hypertension -: Hysterectomy -: JOVANNA knee sx - Family History Mother -: Heart disease, Diabetes Father -: Heart disease - Social History Alcohol use: No CD- Drugs: No Caffeine use: Yes Physical Examination - Physical Exam General: Confused, Obese (Morbidly obese) HEENT: Atraumatic, Normocephalic Respiratory: Clear to auscultation bilaterally, Normal air movement Cardiovascular: No edema, Normal pulses, Regular rate/rhythm, Normal S1 S2 Neurological: Other (Confused) - Studies Laboratory Data (last 24 hrs) 05/16/25 05/16/25 05/16/25 11:29 11:29 11:29 WBC 8.10 Hgb 9.7 L Hct 29.4 L Plt Count 327 PT 14.8 H INR 1.32 APTT 28.9 Sodium 140 Potassium 3.3 L BUN 9 Creatinine 0.66 Glucose 120 H Magnesium 2.0 Total Bilirubin 0.3 AST 14 L ALT 25 Alkaline Phosphatase 82 Lipase 14 Assessment and Plan - Plan Assessment Patient is a 44-year-old female past medical history of COPD, seizure disorder, chronic diastolic CHF chronic pain. She is brought in to the ER for evaluation of altered mental status after she was found sitting in the grass in her apartment complex. Patient was profoundly hypotensive and tachycardic upon EMS arrival. SBP was in the 70s and heart rate in the 130s. She had responded to a small bolus challenge 250 cc. She is currently normotensive. Severe hypotension UTI Acute encephalopathymetabolic versus toxic Chronic diastolic CHF COPD Seizure disorder Polysubstance abuse Plan: Will admit inpatient with telemetry Empiric antibiotics to cover for aspiration pneumonitis/pneumonia Zosyn Follow blood and urine cultures IV fluid infusion antiemetics Hemodynamic monitoring Bed swallow evaluation Resume home meds when appropriate - Advance Directives Does patient have a Living Will: No Does patient have a Durable POA for Healthcare: No
[2025-05-16] MEDS: NA CHLORIDE 0.9% 1,000 ML IV SCH (14:00)
[2025-05-16] MEDS: PANTOPRAZOLE 40 MG INJ IVP SCH (14:06)
[2025-05-16] MEDS ORDERED: SODIUM CHLORIDE 0.9% 10ML INJ IV PRN (14:06)
[2025-05-16 14:10] LABS: Influenza A Ag Negative; Influenza B Ag Negative; SARS-CoV-2 Antigen Rapid Res Negative (Negative)
[2025-05-16 14:18] LABS: Anisocytosis 1+; Blood Morphology Comment NOTED (NOT SEEN); Microcytosis 1+; Polychromasia SLIGHT; White Blood Cell Scan OK (OK)
--- NOTE | 2025-05-16 14:32 | RAD REPORT ---
EXAMINATION: ONE VIEW CHEST XR CLINICAL INDICATION: Female, 44 years old.,COUGH TECHNIQUE: Frontal chest projection is submitted. Examination is limited by patient positioning and t echnique. COMPARISON: 05/15/2025 FINDINGS: The lungs are grossly clear although suboptimal inspiratory effort somewhat limits evaluation. No pn eumothorax or sizable effusion. The heart is normal in size. Mediastinal contours are unremarkable. IMPRESSION: No acute intrathoracic abnormalities.
[2025-05-16] MEDS: PIPER TAZO 3.375 GM in NA CHLORIDE 0.9% 100 ML IV SCH (14:36)
[2025-05-16 15:36] VITALS: BMI 46.9
[2025-05-16] MEDS ORDERED: NA CHLORIDE 0.9% 1,000 ML ONE (16:46)
[2025-05-16] MEDS ORDERED: PANTOPRAZOLE 40 MG INJ ONE ×2 (16:46→16:47)
[2025-05-16] MEDS ORDERED: NA CHLORIDE 0.9% 100 ML ONE (16:46)
[2025-05-16] MEDS ORDERED: PIPERACIL/TAZO 3.375 GM VIAL IV ONE (16:46)
[2025-05-17] MEDS ORDERED: NA CHLORIDE 0.9% 100 ML ONE (00:14)
[2025-05-17] MEDS ORDERED: PIPERACIL/TAZO 3.375 GM VIAL IV ONE (00:15)
[2025-05-17] MEDS ORDERED: NA CHLORIDE 0.9% 1,000 ML ONE (00:16)
[2025-05-17 04:47] LABS: Absolute Lymphocytes (CBC) 1.9 K/uL (0.7-4.9); Hematocrit 28.5 % (36.0-45.0); Hemoglobin 9.3 g/dL (12.0-15.0); MCH 23.6 pg (27.0-35.0); MCHC 32.5 g/dL (32.0-36.0); MCV 72.7 fL (80-100); MPV 8.1 fL (7.6-11.3); Nucleated RBC Absolute Count 0.0 (0-0); Nucleated Red Blood Cells % 0.3 % (0-0); RBC Red Blood Cell Count 3.92 M/uL (3.86-4.86); White Blood Count 7.00 thou/uL (4.3-10.9)
[2025-05-17 05:05] LABS: Anion Gap 7.2 mEq/L (5.0-15.0); BUN Blood Urea Nitrogen 5.0 mg/dL (7-18); Glucose Level 108.0 mg/dL (74-106); Magnesium 2.0 mg/dL (1.6-2.4); Potassium 3.2 mEq/L (3.5-5.1)
[2025-05-17 07:18] VITALS: TEMP 98.5
[2025-05-17 07:22] VITALS: BP 117/61; O2SAT 99
--- NOTE | 2025-05-17 07:26 | P.DS ---
Admission Date: 05/16/25 Discharge Date: 05/17/25 Disposition: AMA-LEFT AGAINST MEDICAL ADVIC Reason for Admission: Acute encephalopathy Brief History of Present Illness: Patient is a 44-year-old female brought into the hospital via EMS for altered mental status. Patient was reportedly sitting in the grass at [address]. EMS found her hypotensive SBP 74. She received 250 cc bolus of IV fluid prior to arrival. She had 100.3 degrees temperature and was tachycardic in the 130s. Fingerstick blood glucose was 138. Workup in the ER was largely unremarkable except for urine toxicology which showed cannabis and benzos. She arrived in the ER borderline blood pressure, which continued to improve. Patient has a past medical history of COPD/asthma, PTSD, congestive heart failure and seizure disorder Hospital Course: Patient was admitted for acute toxic metabolic encephalopathy. Her urine toxicology yielded benzodiazepines and THC. 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 Vital Signs/Physical Exam: Temp Pulse Resp BP Pulse Ox 98.5 F 105 H 17 117/61 97 05/17/25 07:16 05/17/25 07:20 05/17/25 07:20 05/17/25 07:20 05/17/25 04:00 Laboratory Data at Discharge: WBC 7.00 thou/uL (4.3-10.9) 05/17/25 04:29 Hgb 9.3 g/dL (12.0-15.0) L 05/17/25 04:29 Hct 28.5 % (36.0-45.0) L 05/17/25 04:29 Plt Count 280 thou/uL (152-406) 05/17/25 04:29 PT 14.8 SECONDS (10-13.0) H 05/16/25 11:29 INR 1.32 05/16/25 11:29 APTT 28.9 SECONDS (27.2-37.4) 05/16/25 11:29 Sodium 143 mEq/L (136-145) 05/17/25 04:29 Potassium 3.2 mEq/L (3.5-5.1) L 05/17/25 04:29 BUN 5 mg/dL (7-18) L 05/17/25 04:29 Creatinine 0.60 mg/dL (0.55-1.02) 05/17/25 04:29 Glucose 108 mg/dL (74-106) H 05/17/25 04:29 Phosphorus 2.3 mg/dL (2.5-4.9) L 05/17/25 04:29 Magnesium 2.0 mg/dL (1.6-2.4) 05/17/25 04:29 Total Bilirubin 0.3 mg/dL (0.2-1.0) 05/16/25 11:29 AST 14 U/L (15-37) L 05/16/25 11:29 ALT 25 U/L (13-56) 05/16/25 11:29 Alkaline Phosphatase 82 U/L (45-117) 05/16/25 11:29 Lipase 14 U/L (13-75) 05/16/25 11:29 Home Medications: Atorvastatin Calcium [Lipitor] 80 mg PO BEDTIME 11/30/24 Gabapentin 800 mg PO BID 11/30/24 Quetiapine Fumarate [Seroquel] 800 mg PO BEDTIME 11/30/24 Trazodone [Desyrel*] 300 mg PO BEDTIME 11/30/24 Zolpidem Tartrate [Ambien*] 10 mg PO BEDTIME PRN PRN 11/30/24 cloNIDine HCL [Catapres*] 0.3 mg PO Q6HP PRN 11/30/24 clonazePAM [Klonopin*] 1 mg PO BIDP PRN 11/30/24 Cetirizine HCl [Allergy] 10 mg PO DAILY 12/01/24 Fluticasone/Umeclidin/Vilanter [Trelegy Ellipta 200-62.5-25] 1 each IH BID 12/01/24 Mirtazapine [Remeron*] 30 mg PO BEDTIME 12/01/24 Montelukast [Singulair*] 10 mg PO DAILY 12/01/24 Topiramate [Topamax*] 50 mg PO BID 12/01/24 Venlafaxine HCl [Effexor Xr] 3 cap PO DAILY 12/01/24 carBAMazepine [Carbatrol] 300 mg PO Q12H 12/01/24 Miconazole Cream [Monistat-Derm*] 4 gm TP DAILYPRN PRN 05/16/25 Followup: NONE,NONE [Primary Care Provider] -
[2025-05-17] MEDS ORDERED: ENOXAPARIN 40 MG/0.4 ML SQ SCH (09:00)
[2025-05-17] MEDS ORDERED: POTASSIUM CL SA 10 MEQ TAB PO ONE (09:00)
[2025-05-17] MEDS ORDERED: POTASS/SODIUM PHOSPHATE 1 PKT POWD.PACK PO SCH (09:00)
== END 2025-05-17 06:46 | disposition left against medical advice (07) | DRG 689 ==
LOC: ER 10:30 → ERHOLD 13:58
PROVIDERS: ADMIT Internal Medicine; ATTEND Internal Medicine
PROC: 4A033R1 Measurement of Arterial Saturation, Peripheral, Percutaneous Approach (ICD-10-PCS; principal; 2025-05-16)
DX: N30.01 Acute cystitis with hematuria (principal); G92.8 Other toxic encephalopathy; J69.0 Pneumonitis due to inhalation of food and vomit; Z68.42 Body mass index [BMI] 45.0-49.9, adult; I50.32 Chronic diastolic (congestive) heart failure; I11.0 Hypertensive heart disease with heart failure; E66.01 Morbid (severe) obesity due to excess calories; I95.9 Hypotension, unspecified; F43.10 Post-traumatic stress disorder, unspecified; J44.9 Chronic obstructive pulmonary disease, unspecified; G40.909 Epilepsy, unspecified, not intractable, without status epilepticus; Z88.1 Allergy status to other antibiotic agents; Z88.8 Allergy status to other drugs, medicaments and biological substances; Z11.52 Encounter for screening for COVID-19; Z53.29 Procedure and treatment not carried out because of patient's decision for other reasons; Z90.710 Acquired absence of both cervix and uterus; Z79.899 Other long term (current) drug therapy
CPT/HCPCS: 36415; 36600; 51702; 70450; 71045; 71250; 72125; 74176; 80048; 80076; 80143; 80179; 80307; 81001; 82077; 82805; 82947; 83605; 83690; 83735; 83880; 84100; 84484; 85025; 85610; 85730; 87040; 87070; 87086; 87088; 87428; 93005; 99285; J0696; J2470; J2543; J3373; J7030; J7040